=== PATIENT | male | born 1940 | race Caucasian/White ===

== ENCOUNTER 2016-04-20 13:53 | Inpatient (IN) | payer MEDICARE, BC ==
--- NOTE | 2016-04-20 14:27 | ED ---
General Adult HPI <Rudy Fiore - Last Filed: 04/20/16 16:54> - General Source: patient, family, RN notes reviewed Mode of arrival: wheelchair Limitations: no limitations <Zeeshan Hernandez - Last Filed: 04/20/16 17:05> - General Chief complaint: Fall Stated complaint: Fall Hit head and left hand Time Seen by Provider: 04/20/16 14:08 - History of Present Illness Initial comments: Patient 75-year-old male who presents emergency room today with a chief complaint of a fall that occurred yesterday. He does admit that he was walking through a parking lot when he tripped over a parking block. He does admit that he fell down onto the left knee left hand. Does admit to abrasion over the bridge of the nose. Denies any loss conscious. Denies any headache. Denies any neck pain, back pain. Patient does admit to pain swelling locally to the left hand and left knee. Does admit that he is able to bear weight and ambulate but having difficult time due to pain and swelling. Patient denies any other complaints or associated symptoms. Patient denies any recent fever, chills, shortness of breath, chest pain, back pain, abdominal pain, nausea or vomiting, numbness or tingling, dysuria or hematuria, constipation or diarrhea, headaches or visual changes, or any other complaints. (eZeshan Hernandez) - Related Data Home Medications Medication Instructions Recorded Confirmed Aspirin EC [Ecotrin Low Dose] 81 mg PO DAILY 04/20/16 04/20/16 Carvedilol [Coreg] 12.5 mg PO BID 04/20/16 04/20/16 Furosemide [Lasix] 40 mg PO DAILY 04/20/16 04/20/16 Pioglitazone [Actos] 30 mg PO DAILY 04/20/16 04/20/16 Simvastatin [Zocor] 40 mg PO HS 04/20/16 04/20/16 glipiZIDE [Glucotrol] 10 mg PO DAILY 04/20/16 04/20/16 metFORMIN HCL [Glucophage] 850 mg PO W/SUPPER 04/20/16 04/20/16 Allergies Allergy/AdvReac Type Severity Reaction Status Date / Time No Known Allergies Allergy Verified 04/20/16 14:30 Review of Systems ROS Other: All systems not noted in ROS Statement are negative. <Rudy Fiore - Last Filed: 04/20/16 16:54> ROS Other: All systems not noted in ROS Statement are negative. <Zeeshan Hernandez - Last Filed: 04/20/16 17:05> ROS Statement: Those systems with pertinent positive or pertinent negative responses have been documented in the HPI. Past Medical History Past Medical History: Coronary Artery Disease (CAD), Cancer, Diabetes Mellitus, Eye Disorder, Hyperlipidemia, Hypertension Additional Past Medical History / Comment(s): TONSIL CANCER History of Any Multi-Drug Resistant Organisms: None Reported Past Surgical History: Tonsillectomy Additional Past Surgical History / Comment(s): EYE SURGERY Past Psychological History: No Psychological Hx Reported Smoking Status: Former smoker Past Alcohol Use History: None Reported Past Drug Use History: None Reported <Zeeshan Hernandez - Last Filed: 04/20/16 17:05> General Exam <Rudy Fiore - Last Filed: 04/20/16 16:54> Limitations: no limitations <Zeeshan Hernandez - Last Filed: 04/20/16 17:05> - General Exam Comments Initial Comments: General: The patient is awake and alert, in no distress, and does not appear acutely ill. Eye: Pupils are equal, round and reactive to light, extra-ocular movements are intact. No nystagmus. There is normal conjunctiva bilaterally. No signs of icterus. Ears, nose, mouth and throat: There are moist mucous membranes and no oral lesions. Neck: The neck is supple, there is no tenderness or JVD. Cardiovascular: There is a regular rate and rhythm. No murmur, rub or gallop is appreciated. Respiratory: Lungs are clear to auscultation, respirations are non-labored, breath sounds are equal. No wheezes, stridor, rales, or rhonchi. Gastrointestinal: Soft, non-distended, non-tender abdomen without masses or organomegaly noted. There is no rebound or guarding present. No CVA tenderness. Bowel sounds are unremarkable. Musculoskeletal: Patient does have moderate swelling to the left knee and left hand. Patient shows good range of motion of the left hand. Does have tenderness over the fourth and fifth metacarpals. Sensation intact pulses equal bilaterally 2+. Cap refill less than 2 seconds. Patient does have moderate swelling to left knee. Shows decreased range of motion with flexion due to pain. Tender to palpation over the anterior and medial aspect. Sensation intact. Pulses equal bilaterally 2+. Neurological: A&O x 3. CN II-XII intact, There are no obvious motor or sensory deficits. Coordination appears grossly intact. Speech is normal. Skin: Skin is warm and dry and no rashes or lesions are noted. Psychiatric: Cooperative, appropriate mood & affect, normal judgment. (Zeeshan Hernandez) Medical Decision Making <Rudy Fiore - Last Filed: 04/20/16 16:54> <Zeeshan Hernandez - Last Filed: 04/20/16 17:05> - Medical Decision Making Medical decision-making. A CAT scan showed evidence of a tibial plateau fracture, nondisplaced. But the patient also had an injury to his hand. He will not be able to ambulate in any way as he is not able to use crutches or a walker. The case discussed with Dr. Darrick Cooper, patient will be admitted to his service with consultation from on-call orthopedics Dr. Chin. Maegan had been notified of the case and at the patient was able to get around with walker he was a follow up in the office. Inasmuch as the patient cannot get around on a walker or crutches the patient was admitted. Dr. Fiore (Rudy Fiore) Patient's CT of the left knee reviewed and does show nondisplaced nondepressed fracture of the lateral tibial plateau. Results were discussed with the patient. Patient does have bruising contusion to the left hand. Unable to put pressure use a walker with the left upper extremity. Patient will be admitted with consult or thrill. Patient placed in knee immobilizer. (Zeeshan Hernandez) Disposition <Rudy Fiore - Last Filed: 04/20/16 16:54> Time of Disposition: 16:50 <Zeeshan Hernandez - Last Filed: 04/20/16 17:05> Clinical Impression: Tibial plateau fracture, left, Fall, Hand contusion Disposition: ADMITTED IP TO THIS [facility] Condition: Stable Referrals: Dennis Cooper MD [Primary Care Provider] - 1-2 days
--- NOTE | 2016-04-20 15:07 | XR ---
EXAMINATION TYPE: XR hand complete LT DATE OF EXAM ORDERED: 04/20/2016 3:01 PM HISTORY: Pain. COMPARISON: None. FINDINGS: There is a small exostosis arising from the distal aspect of the proximal phalanx of the l madeline finger. Alternatively, this may relate to previous trauma. No acute fracture or dislocation is se en. Note is made of some vascular calcification. IMPRESSION: UNUSUAL APPEARANCE TO THE DISTAL ASPECT OF THE PROXIMAL PHALANX OF THE LONG FINGER. THIS LIKELY RELAT ES TO PREVIOUS TRAUMA.
--- NOTE | 2016-04-20 15:09 | XR ---
EXAMINATION TYPE: XR knee complete LT DATE OF EXAM ORDERED: 04/20/2016 3:01 PM HISTORY: Pain. COMPARISON: None. FINDINGS: There is peaking of the intercondylar spines. Joint spaces are reasonably well-maintained. There is some remodeling changes in the patellofemoral joint. There is a small joint effusion. Note is made of significant vascular calcification. IMPRESSION: CHANGES OF OSTEOARTHRITIS WITH A CONCOMITANT JOINT EFFUSION.
--- NOTE | 2016-04-20 15:11 | XR ---
EXAMINATION TYPE: XR chest 2V DATE OF EXAM: 04/20/2016 3:01 PM HISTORY: fall. REFERENCE: NONE. FINDINGS: A MediPort is in place via a right internal jugular approach. Its tip is in the superior ve na cava. There are senescent changes throughout the lungs. There is no pneumonia or edema. The heart is not en larged. Pleural spaces are clear. IMPRESSION: I DO NOT SEE AN ACUTE INTRATHORACIC ABNORMALITY.
--- NOTE | 2016-04-20 16:25 | CT ---
EXAMINATION TYPE: CT knee LT wo con DATE OF EXAM: 04/20/2016 3:41 PM COMPARISON: NONE HISTORY: Fall today. Left knee injury. CT DLP: 580.10 mGycm Automated exposure control for dose reduction was used. FINDINGS: There is a nondisplaced, nondepressed fracture through the lateral tibial plateau at the level of the lateral tibial tubercle. No additional fractures are seen. There is mild remodeling changes in the m edial compartment and the patellofemoral joint. There is a joint effusion without a definite lipohema rthrosis. There is extensive vascular calcification. IMPRESSION: 1. NONDISPLACED, NONDEPRESSED FRACTURE OF THE LATERAL TIBIAL PLATEAU. 2. MILD CHANGES OF OSTEOARTHRITIS. 3. SMALL JOINT EFFUSION.
[2016-04-20] MEDS ORDERED: ACETAMINOPHEN TAB 325 MG TAB PO PRN (17:05)
[2016-04-20] MEDS ORDERED: SODIUM CHLORIDE 0.9% 1,000 ML IV ONE (17:05)
[2016-04-20] MEDS ORDERED: HYDROmorphone 1 MG/ML 1 ML SYRINGE IV PRN (17:05)
[2016-04-20] MEDS ORDERED: ONDANSETRON 4 MG/2 ML VIAL IVP PRN (17:05)
[2016-04-20] MEDS ORDERED: NALOXONE 0.4 MG/ML 1 ML VIAL IV PRN (17:05)
[2016-04-20] MEDS ORDERED: HYDROcodone/APAP 5-325MG 1 EACH TAB PO PRN (17:05)
[2016-04-20 17:16] LABS: Basophils % (A) 1 %; CH 33.1; CHCM 35.4; Eosinophils % (A) 0 %; HCT 39.9 % (39.0-53.0); HDW 3.06; HGB 13.7 gm/dL (13.0-17.5); Luc # (Auto) 0.14; Luc % (Auto) 2; Lymphocytes # (A) 0.9 k/uL (1.0-4.8); Lymphocytes % (A) 10 %; MCH 32.3 pg (25.0-35.0); MCHC 34.4 g/dL (31.0-37.0); MCV 94.1 fL (80.0-100.0); Mean Platelet Volume 8.3; Monocytes # (A) 0.6 k/uL (0-1.0); Monocytes % (A) 8 %; Neutrophils # (A) 6.7 k/uL (1.3-7.7); Neutrophils % (A) 80 %; RBC 4.23 m/uL (4.30-5.90); RDW 13.2 % (11.5-15.5); WBC 8.4 k/uL (3.8-10.6); WBC (Perox) 8.31
[2016-04-20 17:24] LABS: ALT 32 U/L (21-72); AST 21 U/L (17-59); Alkaline Phosphatase 61 U/L (38-126); Anion Gap 9 mmol/L; Blood Urea Nitrogen 26 mg/dL (9-20); Calcium 9.6 mg/dL (8.4-10.2); Carbon Dioxide 26 mmol/L (22-30); Chloride 103 mmol/L (98-107); Glucose 226 mg/dL (74-99); Non-African American GFR(MDRD) >60 (>60 ml/min/1.73 sqM); Potassium 4.3 mmol/L (3.5-5.1); Sodium 138 mmol/L (137-145); Total Bilirubin 1.1 mg/dL (0.2-1.3); Total Protein 6.6 g/dL (6.3-8.2)
[2016-04-20] MEDS: INSULIN LISPRO (humaLOG) 300 UNIT/3 ML VIAL SQ SCH ×2 (18:47→20:38)
[2016-04-20 18:48] LABS: Glucose,Whole Blood 276 mg/dL (75-99)
[2016-04-20 18:54] VITALS: BMI 38.0
--- NOTE | 2016-04-20 19:21 | HP ---
DATE OF ADMISSION: 04/20/2016 Vick Casey is a 75-year-old male who presented to the ED after he fell down. He has difficulty with vision in his left eye and tripped on the curb and fell down and subsequently injured his left hand and his left knee. He was seen in the ED and admitted for further evaluation. 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 SOCIAL HISTORY: Patient is a former smoker, does not drink alcohol excessively. FAMILY HISTORY: Noncontributory. CT scan of his knee on the left shows a nondisplaced nondepressed fracture of the lateral tibial plateau with a small joint effusion and x-ray showed unusual appearance of the distal aspect of the proximal phalanx of the long finger related to previous trauma. On physical examination, his blood pressure is 135/71, respiratory rate 16, pulse rate is 79, temperature 98 degrees Fahrenheit. O2 sat on room air is 98%. HEENT reveals no new changes. No jugular venous distention. Chest is clear. Cardiovascular S1 and S2. ABDOMEN: Soft. There is a splint over his left knee. The left foot itself is warm. The left hand has some ecchymosis on the medial aspect of the dorsal part of the hand. The patient is alert and oriented x3 with no focal neurological deficits. LABS: Reveal hemoglobin of 13.7. White count of 8.4, sodium 138, potassium 4.3, chloride 103, bicarb 26, BUN 26, creatinine 1.1. A glucose of 226. IMPRESSION: 1. Left tibial fracture. 2. Left hand soft tissue injury. 3. Diabetes mellitus uncontrolled. 4. Thrombocytopenia. At this point in time, have him seen by orthopedic surgery. Keep him on GI and DVT prophylaxis. Have him seen by physical medicine and rehab. Control his blood sugars. Depending on what they think, we shall make further changes to his care.
[2016-04-20] MEDS: FAMOTIDINE 20 MG TAB PO SCH (19:45)
[2016-04-20] MEDS: ATORVASTATIN 20 MG TAB PO SCH (19:45)
[2016-04-20] MEDS: CARVEDILOL 12.5 MG TAB PO SCH (19:45)
[2016-04-20] MEDS: HEPARIN SODIUM,PORCINE 5,000 UNIT/ML 1 ML VIAL SQ SCH (19:45)
[2016-04-20 20:20] LABS: Glucose,Whole Blood 245 mg/dL (75-99)
[2016-04-20 20:36] LABS: Hemoglobin A1C 8.4 % (4.2-6.1)
[2016-04-21 06:55] LABS: Glucose,Whole Blood 217 mg/dL (75-99)
--- NOTE | 2016-04-21 07:24 | P.CONS ---
History of Present Illness - Chief Complaint Walking difficulty - History of Present Illness Patient 75-year-old right-handed white male admitted to [facility] yesterday with history of trip and fall hitting had left hand and left knee. Chest x-ray negative. Left knee x-ray last arthritis confusion. Left knee CT with tibial plateau fracture nondisplaced, and joint effusion. Left hand x-ray with change of proximal phalanx of the long finger, possibly of third digit. PT prescribed. Previous functional history, as elicited from patient. 75 year old right- handed white male who is lives in one floor home with and son. History smoking doesn't smoke or drink currently. Retired. does the cooking laundry and driving. Patient independent with sponge bath and gait without device. Regular doctors Dr. JENNY Cooper. Review of Systems Review of systems: ENT: Bruising and discomfort left orbit and nasal. Eyes: Denies discharge or photophobia. Cardiac: Denies chest pain or palpitation. Pulmonary: Denies cough or shortness of breath. Gastrointestinal: Denies nausea, emesis, constipation, diarrhea. Genitourinary: Denies discharge or frequency. Musculoskeletal: Discomfort in left hand and left knee, which is in immobilizer. Neurologic: Denies motor or sensory change. Endocrine: Denies shakes or sweats. Oncology: Denies cancers. Dermatologic: Denies rash, itching, pruritus. ALLERGY/immunology: Denies sneezes, rashes. Past Medical History Past Medical History: Coronary Artery Disease (CAD), Cancer, Diabetes Mellitus, Eye Disorder, Hyperlipidemia, Hypertension Additional Past Medical History / Comment(s): TONSIL CANCER, SKIN CA, TOE NAIL INFECTION. lYMPHOMA History of Any Multi-Drug Resistant Organisms: None Reported Past Surgical History: Tonsillectomy Additional Past Surgical History / Comment(s): EYE SURGERY Past Anesthesia/Blood Transfusion Reactions: No Reported Reaction Past Psychological History: No Psychological Hx Reported Smoking Status: Former smoker Past Alcohol Use History: None Reported Past Drug Use History: None Reported - Past Family History Mother Family Medical History: Diabetes Mellitus Father Family Medical History: Cancer Medications and Allergies Home Medications Medication Instructions Recorded Confirmed Type Aspirin EC [Ecotrin Low Dose] 81 mg PO DAILY 04/20/16 04/20/16 History Carvedilol [Coreg] 12.5 mg PO BID 04/20/16 04/20/16 History Furosemide [Lasix] 40 mg PO DAILY 04/20/16 04/20/16 History Pioglitazone [Actos] 30 mg PO DAILY 04/20/16 04/20/16 History Simvastatin [Zocor] 40 mg PO HS 04/20/16 04/20/16 History glipiZIDE [Glucotrol] 10 mg PO DAILY 04/20/16 04/20/16 History metFORMIN HCL [Glucophage] 850 mg PO W/SUPPER 04/20/16 04/20/16 History Allergies Allergy/AdvReac Type Severity Reaction Status Date / Time No Known Allergies Allergy Verified 04/21/16 02:07 Physical Exam Vitals: Vital Signs Temp Pulse Resp BP Pulse Ox 04/21/16 07:16 97.8 F 73 16 134/70 94 L 04/21/16 01:58 98.6 F 77 16 124/59 93 L 04/20/16 18:10 98.0 F 79 16 135/71 98 Intake and Output 04/20/16 04/21/16 04/21/16 22:59 06:59 14:59 Intake Total 60 Output Total 600 Balance 60 -600 Intake: IV 60 Sodium Chloride 0.9% 1, 60 000 ml @ 20 mls/hr IV . Q24H ONE Rx#:[id number] Output: Urine 600 Other: Voiding Method Urinal Urinal # Voids 1 Weight 120.202 kg Skin: Good color, texture, turgor. General: [place] build and comfortable appearance. Head: Normocephalic, atraumatic. Eyes: Symmetric. Pupils equal round. Ears: Symmetric. Hearing within normal limits. Mouth: Clear. Neck: Supple. Carotid without bruit. Cardiac: Regular rate and rhythm. Lungs: Clear anteriorly and posteriorly. At least a slightly barrel chested. Abdomen: Soft active nontender. Extremities: Normal tone. Neurological: Mental status: Alert, cooperative, pleasant. Cranial nerves: Symmetric facial tone and trapezius. Motor: Normal strength and isolation all 4 limbs with some giveaway weakness left hand and left leg. Sensation: Intact throughout. DTRs: Symmetric and equal throughout. Mobility: Did not attempt to sit or stand on my own. Results CBC & Chem 7: 04/20/16 17:02 04/20/16 17:02 Labs: Abnormal Lab Results - Last 24 Hours (Table) 04/20/16 04/20/16 04/21/16 Range/Units 18:44 20:19 06:54 POC Glucose (mg/dL) 276 H 245 H 217 H (75-99) mg/dL Assessment and Plan (1) Tibial plateau fracture, left Status: Acute Plan: Impression: 1. Walking ability. 2. Left knee contusion and nondisplaced tibial plateau fracture. 3. Trauma left hand proximal phalanx of long finger 3. Facial contusion. 4. Eye disorder with visual problem left eye. 5. Hypertension. 6. Diabetes. 7. Hyponatremia. 8. History of cancer. Comments and plan: At this time physical therapy is prescribed and I have added occupational therapy. Safety concerns anticipated. We'll follow for possible need and benefit of inpatient rehab, with yourself.
[2016-04-21] MEDS: HEPARIN SODIUM,PORCINE 5,000 UNIT/ML 1 ML VIAL SQ SCH ×2 (07:37→20:12)
[2016-04-21] MEDS: CARVEDILOL 12.5 MG TAB PO SCH ×2 (07:37→17:45)
[2016-04-21] MEDS: ASPIRIN 81 MG CHEW PO SCH (07:37)
[2016-04-21] MEDS: glipiZIDE 10 MG TAB PO SCH (07:37)
[2016-04-21] MEDS: FUROSEMIDE 40 MG TAB PO SCH (07:38)
[2016-04-21] MEDS: FAMOTIDINE 20 MG TAB PO SCH ×2 (07:38→20:12)
[2016-04-21] MEDS: INSULIN LISPRO (humaLOG) 300 UNIT/3 ML VIAL SQ SCH ×4 (07:38→20:12)
[2016-04-21] MEDS: PIOGLITAZONE 30 MG TAB PO SCH (07:38)
--- NOTE | 2016-04-21 09:11 | P.CNOR ---
History of Present Illness - [facility] Consult date: 04/21/16 Consult reason: fracture (Left tibial plateau, left 5th metacarpal fx) History of present illness: This is a 75-year-old male who fell in his home yesterday sustaining injury to his left knee and left hand. On exam and x-ray in the emergency department he is found to have a tibial plateau fracture of the left knee. It is also noted that he has a fifth metacarpal base fracture of the left hand. He is admitted to internal medicine and we're consulted for thecal evaluation. Past Medical History Past Medical History: Coronary Artery Disease (CAD), Cancer, Diabetes Mellitus, Eye Disorder, Hyperlipidemia, Hypertension Additional Past Medical History / Comment(s): TONSIL CANCER, SKIN CA, TOE NAIL INFECTION. lYMPHOMA History of Any Multi-Drug Resistant Organisms: None Reported Past Surgical History: Tonsillectomy Additional Past Surgical History / Comment(s): EYE SURGERY Past Anesthesia/Blood Transfusion Reactions: No Reported Reaction Past Psychological History: No Psychological Hx Reported Smoking Status: Former smoker Past Alcohol Use History: None Reported Past Drug Use History: None Reported - Past Family History Mother Family Medical History: Diabetes Mellitus Father Family Medical History: Cancer Medications and Allergies Home Medications Medication Instructions Recorded Confirmed Type Aspirin EC [Ecotrin Low Dose] 81 mg PO DAILY 04/20/16 04/20/16 History Carvedilol [Coreg] 12.5 mg PO BID 04/20/16 04/20/16 History Furosemide [Lasix] 40 mg PO DAILY 04/20/16 04/20/16 History Pioglitazone [Actos] 30 mg PO DAILY 04/20/16 04/20/16 History Simvastatin [Zocor] 40 mg PO HS 04/20/16 04/20/16 History glipiZIDE [Glucotrol] 10 mg PO DAILY 04/20/16 04/20/16 History metFORMIN HCL [Glucophage] 850 mg PO W/SUPPER 04/20/16 04/20/16 History Allergies Allergy/AdvReac Type Severity Reaction Status Date / Time No Known Allergies Allergy Verified 04/21/16 02:07 Physical Examination This is a pleasant 75-year-old male in no acute distress. He is alert and oriented 3. Exam of the head neck reveal multiple abrasions about the nose and face. There is no asymmetry to the face noted. There is no pain with motion to the cervical spine. Exam the upper extremities reveals significant swelling and ecchymosis to the left hand. He has limited motion of the finger secondary to swelling. Neurovascular status left upper extremity is intact. There is no pain with motion the shoulders and elbows. Exam of the lower extremities reveals a knee immobilizer in place on the left. There is no hip pain noted. He has full foot ankle motion bilaterally. Neurovascular status lower extremities is intact. Results X-ray of the left knee reveals a nondisplaced tibial plateau fracture. X-ray of the left hand reveals a minimally displaced fracture of the base of the fifth metacarpal. There is evidence of old fracture to the middle finger. - Labs Labs: Abnormal Lab Results - Last 24 Hours (Table) 04/20/16 04/20/16 04/21/16 Range/Units 18:44 20:19 06:54 POC Glucose (mg/dL) 276 H 245 H 217 H (75-99) mg/dL Result Diagrams: 04/20/16 17:02 04/20/16 17:02 Assessment and Plan (1) Fracture of fifth metacarpal bone of left hand Status: Acute (2) Fall Status: Acute (3) Tibial plateau fracture, left Status: Acute Plan: The clinical and x-ray findings are discussed with the patient. It is recommended that he received a brace for the left hand and use a platform walker. He is toe-touch weightbearing to the left lower extremity with the platform walker. He is to maintain knee immobilizer. He is advised we will be following his fracture weekly. If the fracture displaces at all he may needs surgical fixation. He may possibly be a candidate for inpatient rehab.
[2016-04-21 11:41] LABS: Glucose,Whole Blood 265 mg/dL (75-99)
[2016-04-21 17:21] LABS: Basophils # (A) 0.1 k/uL (0-0.2); Basophils % (A) 1 %; CH 32.6; Eosinophils # (A) 0.1 k/uL (0-0.7); Eosinophils % (A) 2 %; HDW 3.05; Luc # (Auto) 0.09; Luc % (Auto) 1; Lymphocytes # (A) 0.9 k/uL (1.0-4.8); Lymphocytes % (A) 13 %; MCH 33.1 pg (25.0-35.0); MCHC 35.2 g/dL (31.0-37.0); MCV 93.9 fL (80.0-100.0); Mean Platelet Volume 8.1; Monocytes # (A) 0.5 k/uL (0-1.0); Monocytes % (A) 8 %; Neutrophils # (A) 5.2 k/uL (1.3-7.7); Neutrophils % (A) 75 %; RBC 3.94 m/uL (4.30-5.90); RDW 13.4 % (11.5-15.5); WBC 6.9 k/uL (3.8-10.6); WBC (Perox) 7.08
[2016-04-21 17:23] LABS: Glucose,Whole Blood 183 mg/dL (75-99)
[2016-04-21] MEDS: metFORMIN 850 MG TAB PO SCH (17:45)
[2016-04-21 20:02] LABS: Glucose,Whole Blood 167 mg/dL (75-99)
[2016-04-21] MEDS: ATORVASTATIN 20 MG TAB PO SCH (20:12)
[2016-04-21] MEDS: INSULIN GLARGINE 100 UNIT/ML 10 ML VIAL SQ SCH (20:13)
--- NOTE | 2016-04-21 21:18 | PN ---
DATE OF SERVICE: 04/21/2016 Patient is a 75-year-old male who is seen sitting up in bed. He is awake, alert, afebrile, hemodynamically stable. Does have some swelling and bruising to that left hand as well as an immobilizer on the left lower extremity. Patient's is at the bedside. Patient verbalizes plan is for probable rehab at [facility], as right now patient has limited use his left hand and his left leg from fractures. On physical exam, vital are temperature 98.0, heart rate 75, respiratory rate 16. Blood pressure is 143/70. Oxygen saturation is 96% on room air. HEENT: Head is normocephalic, atraumatic. NECK: Supple. Trachea is midline. LUNGS: Essentially clear. Slightly decreased at the bases. HEART: S1 and S2 are heard. Not tachycardic. ABDOMEN: Soft. Bowel sounds are positive. EXTREMITIES: With trace edema to the left lower extremity as well as that left hand. Left hand has 2+ edema with some bruising noted. No edema to the right lower extremity. NEUROLOGIC: Patient is awake, alert, oriented. No new labs to review. No new imaging to review. IMPRESSION: 1. Left tibial fracture. 2. Left hand fracture and soft tissue injury. 3. Diabetes mellitus, uncontrolled. 4. Thrombocytopenia. PLAN: Continue current medications, which have been reviewed, with GI and DVT prophylaxis. Will add Lantus 24 units daily at bedtime. Will add incentive spirometry 10 times q.1 hour while awake. Patient should continue with PT and OT. Will follow closely, making further changes as necessary.
[2016-04-22 06:58] LABS: Anion Gap 9 mmol/L; Blood Urea Nitrogen 24 mg/dL (9-20); Calcium 8.7 mg/dL (8.4-10.2); Carbon Dioxide 22 mmol/L (22-30); Chloride 107 mmol/L (98-107); Glucose 172 mg/dL (74-99); Magnesium 1.8 mg/dL (1.6-2.3); Non-African American GFR(MDRD) >60 (>60 ml/min/1.73 sqM); Phosphorous 3.2 mg/dL (2.5-4.5); Sodium 138 mmol/L (137-145)
[2016-04-22 07:11] LABS: Glucose,Whole Blood 158 mg/dL (75-99)
[2016-04-22] MEDS: glipiZIDE 10 MG TAB PO SCH (07:40)
[2016-04-22] MEDS: CARVEDILOL 12.5 MG TAB PO SCH ×2 (07:40→17:34)
[2016-04-22] MEDS: PIOGLITAZONE 30 MG TAB PO SCH (07:41)
[2016-04-22] MEDS: FAMOTIDINE 20 MG TAB PO SCH ×2 (07:41→19:48)
[2016-04-22] MEDS: INSULIN LISPRO (humaLOG) 300 UNIT/3 ML VIAL SQ SCH ×4 (07:41→19:49)
[2016-04-22] MEDS: FUROSEMIDE 40 MG TAB PO SCH (07:41)
[2016-04-22] MEDS: ASPIRIN 81 MG CHEW PO SCH (07:41)
[2016-04-22] MEDS: HEPARIN SODIUM,PORCINE 5,000 UNIT/ML 1 ML VIAL SQ SCH ×2 (07:41→19:48)
--- NOTE | 2016-04-22 10:39 | P.PN ---
Subjective Principal diagnosis: Left tibial plateau fracture and left 5th base metacarpal fracture The patient is a 75 year old male that presented to the hospital two days ago after sustaining a fall at home. He was found to have a left tibial plateau fracture and a 5th metacarpal base fracture. A knee immoblizer and wrist brace was ordered yesterday. We are awaiting the arrival of the wrist brace which is due to be delivered this afternoon. He is currently toe-touch weightbearing with a platform walker. He has been ambulating to the bathroom and is currently sitting in the recliner chair upon my evaluation. He states his pain is controlled at this time. We are also awaiting rehab placement at this time. He denies nausea, vomiting, abdominal pain, shortness of breath, and chest pain. Objective - Vital Signs Vital signs: Vital Signs Temp 98.7 F 04/22/16 07:30 Pulse 73 04/22/16 07:30 Resp 16 04/22/16 07:30 BP 131/68 04/22/16 07:30 Pulse Ox 94 L 04/22/16 07:30 Intake & Output 04/21/16 04/22/16 04/22/16 18:59 06:59 18:59 Intake Total 540 360 Balance 540 360 Intake: Oral 540 360 Other: Voiding Method Urinal Urinal Urinal # Voids 1 - Exam The patient is in no acute distress. He is alert and oriented x3. Exam of the left lower extremity reveals a knee immoblizer in place. He has good foot and ankle motion with difficulty or pain. There is moderate swelling to the knee joint. Calf is soft and non-tender. Exam of the left hand reveals swelling and bruising to the volar and dorsal aspect. He has limited range of motion to the left little finger and baseline movement of his other fingers. Pain on palpation to the 5th metacarpal base. Neurological and circulatory status is intact. - Labs CBC & Chem 7: 04/21/16 15:56 04/22/16 06:30 Labs: Abnormal Lab Results - Last 24 Hours (Table) 04/21/16 04/21/16 04/21/16 Range/Units 11:38 15:56 17:20 RBC 3.94 L (4.30-5.90) m/uL Hct 37.0 L (39.0-53.0) % Plt Count 147 L (150-450) k/uL Lymphocytes # 0.9 L (1.0-4.8) k/uL BUN (9-20) mg/dL Glucose (74-99) mg/dL POC Glucose (mg/dL) 265 H 183 H (75-99) mg/dL 04/21/16 04/22/16 04/22/16 Range/Units 20:01 06:30 07:07 RBC (4.30-5.90) m/uL Hct (39.0-53.0) % Plt Count (150-450) k/uL Lymphocytes # (1.0-4.8) k/uL BUN 24 H (9-20) mg/dL Glucose 172 H (74-99) mg/dL POC Glucose (mg/dL) 167 H 158 H (75-99) mg/dL Assessment and Plan (1) Fall Status: Acute (2) Tibial plateau fracture, left Status: Acute (3) Fracture of fifth metacarpal bone of left hand Status: Acute Plan: The clinical findings were discussed with the patient. He'll continue toe- touch weightbearing to left lower extremity and maintain knee immobilizer. We will await wrist brace delivery. He will continue with platform walker. The patient is orthopedically stable for discharge once accepted to a skilled rehabilitation. The patient will follow-up with Dr. Chin on an outpatient basis.
[2016-04-22 11:29] LABS: Glucose,Whole Blood 254 mg/dL (75-99)
[2016-04-22] MEDS: BACITRACIN 500 UNIT/GM OINT 28.4 GM TUBE TOPICAL SCH ×2 (11:44→19:48)
--- NOTE | 2016-04-22 14:00 | CDI ---
In responding to this query, please exercise your independent professional judgment. The [facility] Coding Staff and Clinical Documentation Specialists appreciate your assistance in clarifying documentation, maintaining compliance with coding guidelines, accurately documenting patients condition and capturing severity of illness. The fact that a question is asked does not imply that any particular answer is desired or expected. Communication forms are a method of clarifying documentation and are not made part of the Legal Health Record. Thank you in advance for your clarification. Last Revision, December 2014 Christiano Caban [address] [place] [address] Documentation Clarification Form Date: 04/22/2016 1:44:00 PM From: Salome Papa Admit Date: 04/20/2016 5:34:00 PM Patient Name: Vick Casey Visit Number: [id number] Discharge Date: Dr. Dennis Cooper/Betty Bell NP-Dev The patient has diabetes, as indicated in your H&P and progress note on 04/21/16. Clinical Indicators: past medical history and admission blood glucose 226, Hemoglobin A1c 8.4 Treatment: Glucotrol PO per orders Glucophage PO Per orders Lantus SC per orders Humalog SQ per orders Blood sugar monitoring In order to capture the severity of Illness and necessary documentation specificity, please clarify: DM Type 1 DM Type 2 DM due to underlying condition, specify (e.g. Cushings syndrome) Drug/chemical induced DM (document the drug/chemical) Gestational DM Unable to Determine Other Condition Please document any body system complications or specific manifestations related to the diabetes: Diabetic Nephropathy Diabetic Autonomic Neuropathy Diabetic Peripheral Vascular Disease Proliferative diabetic retinopathy with macular edema Diabetic foot ulcers, specify location Ketoacidosis Hypoglycemia with or without coma Hyperglycemia Hyperosmolarity Coma/nonketotic hyperglycemic-hyperosmolar coma Other condition Please document in your progress notes and discharge summary in order to capture severity of illness and risk of mortality. Include clinical findings that support your diagnosis. FYI: Press F11 to launch patient chart. Place X here if this finding has no clinical significance, is not applicable or if you are not able to provide any additional documentation. ELIOD
--- NOTE | 2016-04-22 14:25 | CDI ---
In responding to this query, please exercise your independent professional judgment. The [facility] Coding Staff and Clinical Documentation Specialists appreciate your assistance in clarifying documentation, maintaining compliance with coding guidelines, accurately documenting patients condition and capturing severity of illness. The fact that a question is asked does not imply that any particular answer is desired or expected. Communication forms are a method of clarifying documentation and are not made part of the Legal Health Record. Thank you in advance for your clarification. Last Revision, April 2015 Christiano Caban [address] [facility] [place] [address] Documentation Clarification Form Date: 04/22/2016 2:03:00 PM From: Salome Elam Admit Date: 04/20/2016 5:34:00 PM Patient Name: Vick Casey Visit Number: [id number] Discharge Date: Dr. Dennis Cooper/Betty Bell MENTAL HEALTH ORDERLY-C Thrombocytopenia is documented in the H&P and progress notes on 04/21/16 . Patient history/risk factors: Diabetes mellitus, uncontrolled, coronary artery disease, Cancer; history of prior chemotherapy, Hypertension, Former smoker Clinical Indicators: Patient is post fall hitting her left hand and left knee, with left knee Ct with tibial plateau fracture nondisplaced and joint effusion. The left hand x-ray with change of proximal phalanx of long finger, facial contusion. Bruising and discomfort left orbit and nasal. Platelet count: 137, 147 Treatment: Monitor Labs In your professional opinion, can the type and etiology of thrombocytopenia be further specified as one of the following, if known? Idiopathic Thrombocytopenia Primary Thrombocytopenia Secondary Thrombocytopenia Thrombocytopenia due to drugs Thrombocytopenia due to chemotherapy Other, please specify Unable to determine Please document in your progress notes and discharge summary in order to capture severity of illness and risk of mortality. Include clinical findings that support your diagnosis. FYI: Press F11 to launch patient chart Place X here if this finding has no clinical significance, is not applicable or if you are not able to provide any additional documentation. MTDD
[2016-04-22 16:44] LABS: Glucose,Whole Blood 198 mg/dL (75-99)
[2016-04-22] MEDS: metFORMIN 850 MG TAB PO SCH (17:34)
[2016-04-22] MEDS: INSULIN GLARGINE 100 UNIT/ML 10 ML VIAL SQ SCH (19:48)
[2016-04-22] MEDS: ATORVASTATIN 20 MG TAB PO SCH (19:48)
[2016-04-22 20:07] LABS: Glucose,Whole Blood 182 mg/dL (75-99)
--- NOTE | 2016-04-22 22:47 | PN ---
DATE OF SERVICE: 04/22/2016. He was seen on 04/22/2016. Physical therapy is starting on him. He has no shortness of breath or chest pain. On physical examination, his blood pressure is 129/74, respiratory rate 16, pulse of 76. He is afebrile. HEENT is unremarkable. Chest is clear. Cardiovascular system reveals an S1, S2. ABDOMEN: Soft. There is no edema. There is a splint over his left lower extremity. Sodium is 138, potassium 4, chloride 107, bicarb 22, BUN 24, creatinine of 1.1. IMPRESSION: 1. Left tibial plate fracture. 2. Diabetes mellitus. 3. Thrombocytopenia. At this point in time, continue GI and DVT prophylaxis. Continue insulin. Increase his activity level. Discharge planning is for rehab unit either inpatient rehab versus penitentiary. Prognosis fair.
[2016-04-23 02:07] VITALS: RESP 16
[2016-04-23 07:41] VITALS: BP 136/74; PULSE 69; TEMP 98.7
[2016-04-23 07:52] LABS: Glucose,Whole Blood 151 mg/dL (75-99)
[2016-04-23] MEDS: INSULIN LISPRO (humaLOG) 300 UNIT/3 ML VIAL SQ SCH ×2 (08:10→12:46)
[2016-04-23] MEDS: CARVEDILOL 12.5 MG TAB PO SCH (08:10)
[2016-04-23] MEDS: glipiZIDE 10 MG TAB PO SCH (08:10)
[2016-04-23] MEDS: ASPIRIN 81 MG CHEW PO SCH (08:11)
[2016-04-23] MEDS: PIOGLITAZONE 30 MG TAB PO SCH (08:12)
[2016-04-23] MEDS: FUROSEMIDE 40 MG TAB PO SCH (08:12)
[2016-04-23] MEDS: BACITRACIN 500 UNIT/GM OINT 28.4 GM TUBE TOPICAL SCH (08:12)
[2016-04-23] MEDS: FAMOTIDINE 20 MG TAB PO SCH (08:12)
[2016-04-23] MEDS: HEPARIN SODIUM,PORCINE 5,000 UNIT/ML 1 ML VIAL SQ SCH (08:12)
--- NOTE | 2016-04-23 09:17 | P.DS ---
Providers Date of admission: 04/20/16 17:34 Expected date of discharge: 04/23/16 Attending physician: Dennis Cooper Consults: 04/20/16 18:55 Consult Physician Routine Consulting Provider: Jacob Koch Consult Reason/Comments: fracture and gait disturbance Do you want consulting provider notified?: Yes Primary care physician: Dennis Cooper - Discharge Diagnosis(es) (1) Fracture of fifth metacarpal bone of left hand Current Visit: Yes Status: Acute (2) Fall Current Visit: Yes Status: Acute (3) Tibial plateau fracture, left Current Visit: Yes Status: Acute Hospital Course: This is a 75-year-old male who is admitted to [facility] on 06/2016 after falling and sustaining injury to his left knee and left hand. He also sustained some abrasions to his face and elbow. On exam and x-ray he was found to have a minimally displaced tibial plateau fracture of the left knee. He also has a minimally displaced fracture of the base of the fifth metacarpal left hand. He is placed in a knee immobilizer left knee and a boxers splint to the left hand. The patient worked with physical therapy with a platform walker. He is having difficulty maintaining nonweightbearing status to the left lower extremity. He has been basically bed to chair transfers. It is recommended that he go to inpatient rehab. He is to follow-up on a weekly basis for serial x-rays to the left knee. He may be toe-touch weightbearing to left lower extremity with platform walker. Patient Condition at Discharge: Stable Plan - Discharge Summary New Discharge Prescriptions: Bacitracin Oint 1 applic TOPICAL BID #1 tube HYDROcodone/APAP 5-325MG [Daisy 5-325] 1 - 2 each PO Q4-6H PRN #90 tab PRN Reason: Pain Sennosides-Docusate Sodium [Senokot-S] 1 tab PO BID #60 tablet Discharge Medication List Aspirin EC [Ecotrin Low Dose] 81 mg PO DAILY 04/20/16 [History] Carvedilol [Coreg] 12.5 mg PO BID 04/20/16 [History] Furosemide [Lasix] 40 mg PO DAILY 04/20/16 [History] Pioglitazone [Actos] 30 mg PO DAILY 04/20/16 [History] Simvastatin [Zocor] 40 mg PO HS 04/20/16 [History] glipiZIDE [Glucotrol] 10 mg PO DAILY 04/20/16 [History] metFORMIN HCL [Glucophage] 850 mg PO W/SUPPER 04/20/16 [History] Bacitracin Oint 1 applic TOPICAL BID #1 tube 04/23/16 [Rx] HYDROcodone/APAP 5-325MG [Daisy 5-325] 1 - 2 each PO Q4-6H PRN #90 tab 04/23/16 [Rx] Sennosides-Docusate Sodium [Senokot-S] 1 tab PO BID #60 tablet 04/23/16 [Rx] Follow up Appointment(s)/Referral(s): Julius Chin MD [STAFF PHYSICIAN] - 1 Week Dennis Cooper MD [Primary Care Provider] - 1-2 days Activity/Diet/Wound Care/Special Instructions: Toe-touch weightbearing left lower extremity Maintain knee immoblizer--May remove for bathing Left wrist brace--May remove for bathing Platform walker Call [facility] with any questions or concerns, Discharge Disposition: TRANSFER TO SNF/ECF
--- NOTE | 2016-04-23 11:27 | P.PN ---
Subjective Principal diagnosis: Fall with left tibial fracture Patient seen and examined. Patient states he is feeling fine. His pain is well -controlled. He denies chest pain, shortness of breath, fevers, chills. He is planning to be discharged to rehab today. He has no needs or concerns at this time. Objective - Vital Signs Vital signs: Vital Signs Temp 98.7 F 04/23/16 07:00 Pulse 69 04/23/16 08:00 Resp 16 04/23/16 08:00 BP 136/74 04/23/16 07:00 Pulse Ox 94 L 04/23/16 07:00 Intake & Output 04/22/16 04/23/16 04/23/16 18:59 06:59 18:59 Intake Total 1320 400 250 Output Total 600 Balance 1320 400 -350 Weight 120.202 kg Intake: Oral 1320 400 250 Output: Urine 600 Other: Voiding Method Urinal Urinal # Voids 1 1 1 # Bowel Movements 1 1 - Exam Gen.: Patient is alert and oriented 3, no acute distress Cardiovascular: Regular rate and rhythm, S1/S2 Lungs: Clear to auscultation bilaterally no wheezes rales or rhonchi Abdomen: Soft nontender nondistended positive bowel sounds Extremities: Left lower extremity and left upper extremity are in orthopedic braces - Labs CBC & Chem 7: 04/21/16 15:56 04/22/16 06:30 Labs: Abnormal Lab Results - Last 24 Hours (Table) 04/22/16 04/22/16 04/22/16 Range/Units 11:27 16:41 19:47 POC Glucose (mg/dL) 254 H 198 H 182 H (75-99) mg/dL 04/23/16 Range/Units 07:10 POC Glucose (mg/dL) 151 H (75-99) mg/dL Assessment and Plan Plan: Status post fall with left tibial plate fracture Left upper extremity soft tissue injury Diabetes mellitus type 2 Thrombocytopenia Obesity Plan for discharge to [facility] today. Continue home medications Incentive spirometry and pulmonary hygiene Blood sugar control Pain control Follow-up with orthopedic surgery
[2016-04-23 12:10] LABS: Glucose,Whole Blood 197 mg/dL (75-99)
== END 2016-04-23 15:02 | DRG 563 ==
LOC: EC 13:53 → 3SUR 17:34
PROVIDERS: ADMIT Internal Medicine Pulmonary Disease; ATTEND Internal Medicine Pulmonary Disease
PROC: 2W3RX3Z Immobilization of Left Lower Leg using Brace (ICD-10-PCS; principal; 2016-04-22)
PROC: 2W3FX1Z Immobilization of Left Hand using Splint (ICD-10-PCS; 2016-04-22)
DX: S82.142A Displaced bicondylar fracture of left tibia, initial encounter for closed fracture (principal); E11.65 Type 2 diabetes mellitus with hyperglycemia; D69.6 Thrombocytopenia, unspecified; E87.1 Hypo-osmolality and hyponatremia; I10 Essential (primary) hypertension; M17.12 Unilateral primary osteoarthritis, left knee; M25.462 Effusion, left knee; S00.83XA Contusion of other part of head, initial encounter; S62.307A Unspecified fracture of fifth metacarpal bone, left hand, initial encounter for closed fracture; I25.10 Atherosclerotic heart disease of native coronary artery without angina pectoris; E78.5 Hyperlipidemia, unspecified; H57.9 Unspecified disorder of eye and adnexa; R26.2 Difficulty in walking, not elsewhere classified; H54.62 Unqualified visual loss, left eye, normal vision right eye; R53.1 Weakness; Z79.899 Other long term (current) drug therapy; Z83.3 Family history of diabetes mellitus; Z79.84 Long term (current) use of oral hypoglycemic drugs; Z92.21 Personal history of antineoplastic chemotherapy; Z87.891 Personal history of nicotine dependence; Z79.82 Long term (current) use of aspirin; Z86.19 Personal history of other infectious and parasitic diseases; Z85.828 Personal history of other malignant neoplasm of skin; Z80.9 Family history of malignant neoplasm, unspecified; Z85.72 Personal history of non-Hodgkin lymphomas; Z87.81 Personal history of (healed) traumatic fracture; W10.1XXA Fall (on)(from) sidewalk curb, initial encounter; Y93.01 Activity, walking, marching and hiking; Y92.480 Sidewalk as the place of occurrence of the external cause
CPT/HCPCS: 36415; 71020; 80048; 80053; 83036; 83735; 84100; 85025; 99285

== ENCOUNTER → 2016-05-13 | Outpatient (CLI) | payer MEDICARE, BC ==
[2016-05-13 13:16] LABS: Anion Gap 12 mmol/L; Blood Urea Nitrogen 24 mg/dL (9-20); Calcium 9.5 mg/dL (8.4-10.2); Carbon Dioxide 24 mmol/L (22-30); Chloride 102 mmol/L (98-107); Glucose 191 mg/dL (74-99); Non-African American GFR(MDRD) >60 (>60 ml/min/1.73 sqM); Sodium 138 mmol/L (137-145)
[2016-05-13 13:21] LABS: Hemoglobin A1C 7.8 % (4.2-6.1); Potassium 5.4 mmol/L (3.5-5.1)
== END | disposition home or self-care (01) ==
LOC: LABWHC1 12:04
PROVIDERS: ATTEND Nurse Practitioner
DX: E11.9 Type 2 diabetes mellitus without complications (principal); I10 Essential (primary) hypertension
CPT/HCPCS: 36415; 80048; 83036

== ENCOUNTER → 2016-07-28 | Outpatient (CLI) | payer MEDICARE, BC ==
[2016-07-28 10:28] LABS: Blood Urea Nitrogen 19 mg/dL (9-20); Non-African American GFR(MDRD) >60 (>60 ml/min/1.73 sqM)
--- NOTE | 2016-07-28 12:44 | CT ---
EXAMINATION TYPE: CT soft tissue neck w con DATE OF EXAM: 07/28/2016 COMPARISON: NONE HISTORY: Lymphoma CT DLP: 2545 mGycm CONTRAST: Patient injected with 100 mL of Omnipaque 300. TECHNIQUE: Axial images at 3 mm thick sections. Reconstructed images in the coronal plane and sagitt al plane are reviewed. FINDINGS: Limited CT sections are obtained the lung apices. The lung apices appear clear. CT neck: The torus tubarius and fossa of Rosenmuller are normal. Outdoor Studies Director spaces are normal. Para nasal sinuses and mastoid air cells are clear. Parotid glands appear normal and symmetrical. Submandibular glands, are normal. Parapharyngeal spac es are normal. No suspicious adenopathy is evident. The hypopharynx appears within normal limits. Vocal cord level appear symmetrical. Thyroid as visualized is normal. Osseous structures are normal. IMPRESSIONS: 1. No suspicious adenopathy to suggest recurrent lymphoma.
--- NOTE | 2016-07-28 12:51 | CT ---
EXAMINATION TYPE: CT ChestAbdPelvis w con DATE OF EXAM: 07/28/2016 INDICATION: History of lymphoma COMPARISON: 01/25/2016 CT DLP: 2545 mGycm CONTRAST: 100 mL Omnipaque 300 TECHNIQUE: Axial images at 5 mm thick sections. Reconstructed images in the coronal plane. Delayed images through the kidneys. FINDINGS: CT CHEST: Portion of the thyroid visualized is normal. No suspicious lung nodules or focal infiltrates are present. No enlarged mediastinal or hilar adenopathy is evident. No enlarged axillary adenopathy is evident Th ere may be some minimal thymus present anterior to the main pulmonary artery level. Coronary artery c alcification is present. The ascending aorta diameter at the level of the main pulmonary artery is 3.4 cm. The main pulmonary artery diameter at the bifurcation is 2.[address] ABDOMEN: Liver: Normal Spleen: Normal, and craniocaudal dimension is 12.7 cm which is diminished from previous. Pancreas: Normal Adrenal glands: The adrenal glands are normal. Gallbladder: Normal Kidneys: No masses are evident. No hydronephrosis is present. No cysts are present. Delayed images were obtained through the kidneys, which remain unremarkable. There is a right retrocaval renal parul ry Aorta: Vascular calcification is within the aorta. Inferior vena cava: Normal. CT PELVIS: Loops of bowel within the abdomen and pelvis are normal. There are loops of bowel which are incom pletely distended or lack oral contrast limiting their evaluation. Appendix: Not identified. Urinary bladder: Normal. Genitourinary structures: Prostate is unremarkable Osseous structures: No suspicious lytic or sclerotic lesions. IMPRESSIONS: 1. No suspicious lymphadenopathy to suggest recurrent lymphoma.
== END | disposition home or self-care (01) ==
LOC: RADPROMAIN 09:41
PROVIDERS: ATTEND Internal Medicine Hematology & Oncology
DX: C83.31 Diffuse large B-cell lymphoma, lymph nodes of head, face, and neck (principal)
CPT/HCPCS: 82565; 84520; 70491; 71260; 74177; 36415; Q9967

== ENCOUNTER → 2017-02-20 | Outpatient (CLI) | payer MEDICARE, BC ==
[2017-02-20 10:53] LABS: Blood Urea Nitrogen 24 mg/dL (9-20)
--- NOTE | 2017-02-20 12:10 | CT ---
EXAMINATION TYPE: CT soft tissue neck w con DATE OF EXAM: 02/20/2017 HISTORY: Follow up to lymphoma COMPARISON: Prior neck CT July 28, [address] DLP: 3999.7 (neck chest abd pelvis) mGycm. Automated Exposure Control for Dose Reduction was Util ized. TECHNIQUE: CT scan of the neck is performed with IV Contrast, patient injected with 100 mL of Omnipa que 300, axial images are obtained, coronal and sagittal reformatted images are reviewed. FINDINGS: Airway: There is stable 3 mm calcification laterally right thyroid lobe on axial image 29 Parotid/submandibular glands: No gross abnormality seen. Carotid/Vascular Structures: There is persistent moderate to severe calcified plaque at right carotid bulb extending into proximal internal carotid artery without significant stenosis clearly seen. Ther e is more mild to moderate calcified plaque left carotid bulb redemonstrated. There is prominent calc ified plaque in the proximal left vertebral artery which is tortuous redemonstrated. Osseous Structures: Slight underlying scoliotic curvature is redemonstrated Other: There is stable incomplete visualization of right internal jugular Mediport catheter. IMPRESSION: No suspicious adenopathy is seen to suggest neoplastic recurrence. No significant change from prior studies.
--- NOTE | 2017-02-20 12:18 | CT ---
EXAMINATION TYPE: CT ChestAbdPelvis w con DATE OF EXAM: 02/20/2017 COMPARISON: CT chest abdomen and pelvis July 28, 2016 and older studies back through November 10 14 HISTORY: Follow up to lymphoma CT DLP: 3999.7 (neck chest abd pelvis) mGycm. Automated Exposure Control for Dose Reduction was Utili zed. CONTRAST: CT scan of the thorax, abdomen and pelvis is performed with oral and with IV Contrast, patient inject ed with 100 mL of Omnipaque 300. FINDINGS: Artifact is present presumed related to patient's body habitus. LUNGS: There is stable linear scarring anteriorly right midlung near axial image 33. There is no new concerning parenchymal nodule or mass. There is stable 2 mm hyperdense probable calcified nodule supe rior aspect right lower lobe on axial image 42. There is no pleural effusion or pneumothorax seen. T he tracheobronchial tree is patent. MEDIASTINUM: There are no greater than 1 cm hilar or mediastinal lymph nodes. No cardiomegaly or pe ricardial effusion is seen. There is severe three-vessel coronary artery calcification redemonstrate d which is noted marker for coronary artery disease. OTHER: There is stable right internal jugular Mediport catheter terminating in SVC. LIVER/GB: No significant abnormality is appreciated. PANCREAS: No significant abnormality is seen. SPLEEN: No significant abnormality is seen. ADRENALS: No significant abnormality is seen. KIDNEYS: No significant abnormality is seen. BOWEL: The oral contrast reaches level of sigmoid colon. There is no suspicious small or large bowel dilatation. GENITAL ORGANS: No gross abnormality seen. LYMPH NODES: No greater than 1cm abdominal or pelvic lymph nodes are appreciated. OSSEOUS STRUCTURES: Osseous structures are demineralized. There is fairly moderate multilevel spurrin g of the thoracolumbar spine. There is facet arthropathy lower lumbar levels. OTHER: There is fairly moderate calcified plaque of aorta extending into pelvic iliac branch vessels. IMPRESSION: No suspicious new mass or adenopathy is seen to suggest neoplastic recurrence.
== END | disposition home or self-care (01) ==
LOC: RADCTMAIN 09:59
PROVIDERS: ATTEND Internal Medicine Hematology & Oncology
DX: C83.31 Diffuse large B-cell lymphoma, lymph nodes of head, face, and neck (principal)
CPT/HCPCS: 82565; 84520; 70491; 71260; 74177; Q9967; J1642

== ENCOUNTER → 2017-08-03 | Outpatient (CLI) | payer MEDICARE, BC ==
--- NOTE | 2017-08-03 14:46 | CT ---
EXAMINATION TYPE: CT soft tissue neck w con DATE OF EXAM: 08/03/2017 COMPARISON: CT neck February 20, 2017 and older studies back through March 26, 2013. HISTORY: Lymphoma progress study. CT DLP: 903.10 mGycm. Automated Exposure Control for Dose Reduction was Utilized. TECHNIQUE: CT scan of the neck is performed following with IV Contrast, patient injected with 50 mL of Isovue 300. FINDINGS: EXAMINATION TYPE: CT soft tissue neck w con DATE OF EXAM: 08/03/2017 HISTORY: Lymphoma COMPARISON: NONE CT DLP: 903.10 mGycm. Automated Exposure Control for Dose Reduction was Utilized. TECHNIQUE: CT scan of the neck is performed with IV Contrast, patient injected with 50 mL of Isovue 300, axial images are obtained, coronal and sagittal reformatted images are reviewed. FINDINGS: Airway: Asymmetric soft tissue left oral pharyngeal airway on initial study from 2013 shows no suspic ious recurrent tissue on current study and no significant change from most recent CT. Parapharyngeal fat spaces are symmetric and maintained near axial image 71. Subcentimeter nodularity throughout thyr oid gland is felt stable, for reference posterior left thyroid axial image 39. Parotid/submandibular glands: There is stable symmetric mild diffuse fat replaced atrophy of bilatera l parotid glands. Submandibular glands are symmetric and felt within normal limits. Carotid/Vascular Structures: Moderate calcified plaque bilateral carotid bulbs remains present, right greater than left without significant stenosis seen. There is calcified plaque distal vertebral parul jefry bilaterally. Codominant vertebral basilar system is present. Osseous Structures: Some mild multilevel uncovertebral facet degenerative changes bilaterally are red emonstrated.. Other: No new suspicious greater than 1 cm adenopathy is seen. IMPRESSION: No new mass or adenopathy is seen to suggest neoplastic recurrence.
--- NOTE | 2017-08-03 14:58 | CT ---
EXAMINATION TYPE: CT ChestAbdPelvis w con DATE OF EXAM: 08/03/2017 COMPARISON: CT chest abdomen pelvis February 20, 2017 and older studies back through November 10, 2013 HISTORY: lymphoma CT DLP: 3485.10 mGycm. Automated Exposure Control for Dose Reduction was Utilized. CONTRAST: CT scan of the thorax, abdomen and pelvis is performed with oral and with IV Contrast, patient inject ed with 50 mL of Isovue 300. FINDINGS: LUNGS: The lungs are grossly clear, there is no concerning parenchymal mass or nodule identified. T here is no pleural effusion or pneumothorax seen. The tracheobronchial tree is patent. MEDIASTINUM: There are no greater than 1 cm hilar or mediastinal lymph nodes. No cardiomegaly or pe ricardial effusion is seen. Coronary artery calcification is redemonstrated which is noted marker fo r coronary artery disease. OTHER: There is stable right internal jugular Mediport catheter . LIVER/GB: No significant abnormality is appreciated. PANCREAS: No significant abnormality is seen. SPLEEN: No significant abnormality is seen. ADRENALS: No significant abnormality is seen. KIDNEYS: There is stable some cortical thinning in both kidneys. There is symmetric cortical medullar y uptake and excretion from both kidneys without evidence of hydronephrosis bilaterally BOWEL: Oral contrast reaches rectum. There is no suspicious small or large bowel dilatation. Divertic mert in the sigmoid colon are redemonstrated. GENITAL ORGANS: No gross abnormality seen. LYMPH NODES: No greater than 1cm abdominal or pelvic lymph nodes are appreciated. OSSEOUS STRUCTURES: Osseous structures remain demineralized. There is fairly moderate multilevel spur ring in the thoracolumbar spine redemonstrated. OTHER: There is moderate to severe calcified plaque of aorta extending into small branch vessels. IMPRESSION: No new mass or adenopathy is seen to suggest lymphoma recurrence.
== END | disposition home or self-care (01) ==
LOC: RADCTMAIN 12:16
PROVIDERS: ATTEND Internal Medicine Hematology & Oncology
DX: C83.31 Diffuse large B-cell lymphoma, lymph nodes of head, face, and neck (principal)
CPT/HCPCS: 82565; 84520; 70491; 71260; 74177; J1642; Q9967

== ENCOUNTER → 2018-02-18 | Outpatient (CLI) | payer MEDICARE, BC ==
--- NOTE | 2018-02-18 16:11 | CT ---
EXAMINATION TYPE: CT ChestAbdPelvis w con DATE OF EXAM: 02/18/2018 COMPARISON: 08/03/2017 HISTORY: lymphoma CT DLP: 4341.90 combined mGycm CONTRAST: CT scan of the chest, abdomen and pelvis is performed with Oral Contrast and with IV Contrast, patien t injected with 60 mL of Isovue 300. CT Chest: LUNGS: The lungs are clear and free of infiltrate or atelectasis. No pulmonary nodule or mass is det ected. No pleural effusion or CT evidence of interstitial lung disease. MEDIASTINUM: Thoracic aorta is of normal caliber. The heart is not enlarged. No evidence for media stinal mass or adenopathy. HILAR STRUCTURES: No evidence for mass. No hilar adenopathy is appreciated. OTHER: No significant abnormality. CONTRAST CT ABDOMEN AND PELVIS FINDINGS: LIVER/GB: No calcified gallstones. No space occupying hepatic lesion. Biliary tree is of normal ca liber. PANCREAS: No inflammation. No distinct mass. SPLEEN: No splenic enlargement. No lesion seen. ADRENALS: No nodule. No thickening. KIDNEYS/BLADDER: No hydronephrosis. No nephrolithiasis. No disctinct renal mass. BOWEL: Normal appendix. Normal bowel caliber. No inflammation. GENITAL ORGANS: No gross abnormality. LYMPH NODES: No greater than 1cm abdominal or pelvic lymph nodes are appreciated. AORTA: No significant abnormality. OSSEOUS STRUCTURES: No significant abnormality is seen. OTHER: No significant additional abnormality is seen. IMPRESSION: 1. No evidence for mass or adenopathy at this time.
--- NOTE | 2018-02-18 16:13 | CT ---
EXAMINATION TYPE: CT soft tissue neck w con DATE OF EXAM: 02/18/2018 COMPARISON: 08/03/2017 HISTORY: lymphoma CT DLP: 4341.9 combined mGycm CONTRAST: CT scan of the neck is performed with IV Contrast, patient injected with 60 mL of Isovue 300. Contrast enhanced CT of the neck was performed from the skull base through the lung apices. AIRWAY: The supraglottic, glottic, and subglottic portions of the airway appear patent and free of mass. SALIVARY GLANDS: The submandibular and parotid glands are free of mass or inflammatory process. THYROID GLAND: No nodules or masses seen. LYMPH NODES: No adenopathy seen greater than 1cm. LUNG APICES: No nodule or mass is seen. OTHER: Vascular structures are patent. No significant degenerative change of the cervical spine. N o abscess seen. IMPRESSION: No evidence for recurrent mass or adenopathy.
== END ==
LOC: RADCTMAIN 13:29
PROVIDERS: ATTEND Internal Medicine Hematology & Oncology
DX: C83.31 Diffuse large B-cell lymphoma, lymph nodes of head, face, and neck (principal); C83.37 Diffuse large B-cell lymphoma, spleen
CPT/HCPCS: 82565; 84520; 70491; 71260; 74177; 36415; J1642; Q9967 ×2

== ENCOUNTER → 2018-11-01 | Outpatient (CLI) | payer MEDICARE, BC ==
--- NOTE | 2018-11-01 12:44 | CT ---
EXAMINATION TYPE: CT soft tissue neck w con DATE OF EXAM: 11/01/2018 HISTORY: Lymphoma. Prior on synapse. COMPARISON: CT neck February 18, 2018 back through [address] DLP: 4636.40 mGycm. Automated Exposure Control for Dose Reduction was Utilized. TECHNIQUE: CT scan of the neck is performed with IV Contrast, patient injected with 100 mL of Isovue 300, axial images are obtained, coronal and sagittal reformatted images are reviewed. FINDINGS: Airway: Airway is patent. No recurrent left oral pharyngeal mucosal mass identified. Epiglottis and v allecula are maintained. Thyroid gland is within normal limits. Parotid/submandibular glands: Some generalized fatty-replaced atrophy of bilateral parotid glands. Carotid/Vascular Structures: Moderate to severe plaque right greater than left carotid bulbs, stenosi s greater than 50% may be present proximal right internal carotid artery axial image 60. Osseous Structures: Slight dextroconvex scoliotic curvature. Other: Partial visualization of right subclavian Mediport catheter IMPRESSION: 1. No suspicious recurrent mass or adenopathy. 2. Increasing fairly severe degenerative change right carotid bulb, cannot exclude hemodynamically si gnificant stenosis proximal internal carotid artery. Advise carotid ultrasound follow-up to evaluate.
--- NOTE | 2018-11-01 14:37 | CT ---
EXAMINATION TYPE: CT ChestAbdPelvis w con DATE OF EXAM: 11/01/2018 COMPARISON: CT chest abdomen and pelvis February 18, 2018 and older CTs. HISTORY: Lymphoma CT DLP: 4636.40 mGycm. Automated Exposure Control for Dose Reduction was Utilized. CONTRAST: CT scan of the thorax, abdomen and pelvis is performed with IV Contrast, patient injected with 100 mL of Isovue 300. FINDINGS: LUNGS: The lungs are grossly clear, there is no concerning parenchymal mass or nodule identified. T here is no pleural effusion or pneumothorax seen. The tracheobronchial tree is patent. MEDIASTINUM: There are no greater than 1 cm hilar or mediastinal lymph nodes. No cardiomegaly or pe ricardial effusion is seen. Coronary constipation redemonstrated which is noted marker for underlyin g coronary artery disease. OTHER: Stable right internal jugular Mediport catheter terminating in proximal SVC. LIVER/GB: No significant abnormality is appreciated. PANCREAS: No significant abnormality is seen. SPLEEN: No significant abnormality is seen. ADRENALS: No significant abnormality is seen. KIDNEYS: No significant abnormality is seen. BOWEL: Oral contrast does not reach level of terminal ileum. No suspicious small and large bowel dila tation. Some diverticula in the sigmoid colon. GENITAL ORGANS: No gross abnormality seen. LYMPH NODES: No greater than 1cm abdominal or pelvic lymph nodes are appreciated. OSSEOUS STRUCTURES: [id number] multilevel spurring in the thoracic spine redemonstrated. OTHER: Moderate calcified plaque of the aorta extends into branch vessels. IMPRESSION: No suspicious new mass or adenopathy is identified to suggest neoplastic recurrence.
== END | disposition home or self-care (01) ==
LOC: RADPROMAIN 07:15
PROVIDERS: ATTEND Internal Medicine Hematology & Oncology
DX: I65.21 Occlusion and stenosis of right carotid artery (principal); C83.31 Diffuse large B-cell lymphoma, lymph nodes of head, face, and neck
CPT/HCPCS: 82565; 84520; 70491; 71260; 74177; J1642; Q9967

== ENCOUNTER 2020-04-11 10:05 | Day surgery (SDC) | payer MEDICARE, BC ==
[~2020-04-11 10:05] MED LIST: NA PHOS,M-B/NA PHOS,DI-BA 133 ML ENEMA RECTAL ONE
[2020-04-11 11:21] VITALS: TEMP 97.3
[2020-04-11] MEDS ORDERED: LIDOCAINE 1% (10MG/ML) FOR IV START INTRADERMA ONE (11:32)
[2020-04-11] MEDS ORDERED: LACTATED RINGERS 1,000 ML IV ONE (11:32)
[2020-04-11] MEDS ORDERED: PROPOFOL 10 MG/ML 20 ML VIAL IV ONE (11:52)
[2020-04-11] MEDS ORDERED: LIDOCAINE 1% INJ 10MG/ML (20 ML MDV) ONE (11:52)
--- NOTE | 2020-04-11 12:08 | P.PCN ---
Date of Procedure: 04/11/20 Procedure(s) Performed: BRIEF HISTORY: Patient is a 79-year-old pleasant white male scheduled for an elflexible sigmoid endoscopy as part of evaluation of rectal mass. Patient had a colonoscopy done a week ago at [facility] and he was noted to have a rectal mass involving the distal rectum and biopsies were negative for malignancy.. He is hence scheduled for repeat endoscopy today. PROCEDURE PERFORMED: Colonoscopy. PREOPERATIVE DIAGNOSIS: Rectal mass IV sedation per Anesthesia. PROCEDURE: After informed consent was obtained, the patient, was brought into the endoscopy unit. IV sedation was administered by Anesthesia under continuous monitoring. Digital rectal examination was normal. Initially the Olympus CF-160 flexible video colonoscope was then inserted in the rectum, gradually advanced into the sigmoid colon. The colon appeared normal. There was a circumferential ulcerated mass noted in the distal rectum extending from the dentate line to send 10 cm proximally and multiple biopsies were done from this area. The patient tolerated the procedure well. IMPRESSION: Large distal rectal ulceration mass extending from the dentate line to 10 cm proximally, status post multiple biopsies Sigmoid colon appeared normal. RECOMMENDATIONS: Findings of this examination were discussed with the patient as well as his family. He was advised to follow with the biopsy results be seen in office in 5 days.
[2020-04-11 12:34] VITALS: BP 112/56; PULSE 78; RESP 20
== END 2020-04-11 13:22 | disposition home or self-care (01) ==
LOC: ORWHC2ENDO 10:05
PROVIDERS: ATTEND Internal Medicine Gastroenterology
DX: C83.39 Diffuse large B-cell lymphoma, extranodal and solid organ sites (principal); K62.6 Ulcer of anus and rectum; K62.1 Rectal polyp; K08.109 Complete loss of teeth, unspecified cause, unspecified class; I10 Essential (primary) hypertension; E78.5 Hyperlipidemia, unspecified; Z79.899 Other long term (current) drug therapy; Z79.84 Long term (current) use of oral hypoglycemic drugs; Z79.82 Long term (current) use of aspirin; Z79.891 Long term (current) use of opiate analgesic; Z95.810 Presence of automatic (implantable) cardiac defibrillator; Z90.89 Acquired absence of other organs; Z98.890 Other specified postprocedural states; Z85.89 Personal history of malignant neoplasm of other organs and systems; Z85.79 Personal history of other malignant neoplasms of lymphoid, hematopoietic and related tissues; Z87.2 Personal history of diseases of the skin and subcutaneous tissue
CPT/HCPCS: 88305; 88342; 88341; 45331; J2001; J2704

== ENCOUNTER → 2020-05-05 | Outpatient (CLI) | payer MEDICARE, BC ==
--- NOTE | 2020-05-08 07:22 | PE ---
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 TECHNIQUE: Following the intravenous administration of 12.38 mCi of F-18 FDG, whole body images are performed from the skull base to the midthigh. Images are reviewed on the computer in the coronal, a xial, and sagittal planes. Reconstructed rotating images are created on independent workstation and reviewed on the computer. A localization and attenuation correction CT is performed in conjunction with the PET scan. Blood glucose level was 120. SCAN: Subsequent Scan FINDINGS: Mean SUV mediastinum: 0.62 Mean SUV liver: 2.39 SKULL BASE AND NECK: No areas of abnormal hypermetabolic uptake. CHEST, MEDIASTINUM, AND HILAR REGION: No areas of abnormal hypermetabolic uptake. ABDOMEN AND PELVIS: Normal excretion in kidneys and bladder. There is mild to moderately dilated rectum with suspected abnormal soft tissue posteriorly that has a bnormal hypermetabolic uptake, max SUV is 25.18. This is larger area of involvement suspected from an us through mid segment of the rectum, there is serosal breakthrough with right posterior 2.2 x 1.4 cm hypermetabolic tumor extension axial image 234. There is abnormal hypermetabolic presacral soft tissue lesion measuring roughly 3.4 x 1.1 cm axial im age 222, max SUV is 20.7. Abnormal 8 to 9 mm right iliac chain lymph node image 218, max SUV is 7.5. There is abnormal 7 mm hyp ermetabolic left mid pelvic lesion or lymph node axial image 213. The max SUV 6.87. There is addition al abnormal retroperitoneal hypermetabolic adenopathy, for reference two adjacent lymph node left par a-aortic region distally, the more medial one measures 1.7 x 1.2 cm axial image 184, max SUV is 11.42 There is abnormal hypermetabolic right groin lymph node measuring 2.1 x 1.2 cm axial image 245, max S UV is 12.29. OSSEOUS STRUCTURES: No areas of abnormal hypermetabolic uptake. OTHER CT: Moderate calcified plaque right greater than left carotid bulbs. Right internal jugular Med iport catheter terminates at SVC origin. The lung volumes. Severe three-vessel coronary artery calcif ication. Mild cardiomegaly. Cortical thinning in both kidneys. Prominent calcified plaque of smaller vessels. IMPRESSION: Long segment neoplasm rectum remain missed with subserosal spread, abnormal lower abdomin al and pelvic adenopathy along with abnormal right groin adenopathy. Further details as discussed abo ve.
== END | disposition home or self-care (01) ==
LOC: RADPETMAIN 07:55
PROVIDERS: ATTEND Internal Medicine Hematology & Oncology
DX: C20 Malignant neoplasm of rectum (principal); C83.39 Diffuse large B-cell lymphoma, extranodal and solid organ sites; E11.9 Type 2 diabetes mellitus without complications; I65.23 Occlusion and stenosis of bilateral carotid arteries; I25.10 Atherosclerotic heart disease of native coronary artery without angina pectoris; I51.7 Cardiomegaly; M79.89 Other specified soft tissue disorders; R59.0 Localized enlarged lymph nodes; Z92.21 Personal history of antineoplastic chemotherapy
CPT/HCPCS: 78815; A9552

== ENCOUNTER 2020-06-29 16:06 | Inpatient (IN) | payer MEDICARE, BC ==
--- NOTE | 2020-06-29 17:05 | ED ---
General Adult HPI - General Chief complaint: Weakness Stated complaint: Chemo side affects, hypotensive Time Seen by Provider: 06/29/20 16:19 Source: patient Mode of arrival: ambulatory Limitations: no limitations - History of Present Illness Initial comments: Dictation was produced using [employer] dictation software. please excuse any grammatical, word or spelling errors. This patient was cared for during a federal and state declared state of [facility] secondary to Covid 19 Chief Complaint: 79-year-old male presents emergency department for weakness, elevated blood sugar History of Present Illness: Patient is a 79-year-old male who has past medical history of lymphoma, coronary artery disease, diabetes, dyslipidemia. Presents to the emergency department today for increased generalized weakness and elevated blood sugar. 6 accompanied by his daughter who was at the bedside. 3 days ago he completed a round of chemotherapy to treat his lymphoma by his oncologist. Been having some issues with the chemotherapy including low blood pressure, worsening weakness. Patient has any pain complaints at this time. He recently had his blood pressure medications discontinued due to hypotension. Patient has any fever, chills or night sweats. Denies any coughing. No shortness of breath. No nausea or vomiting. The ROS documented in this emergency department record has been reviewed and confirmed by me. Those systems with pertinent positive or negative responses have been documented in the HPI. All other systems are other negative and/or noncontributory. PHYSICAL EXAM: General Impression: Alert and oriented x3, not in acute distress HEENT: Normocephalic atraumatic, extra-ocular movements intact, pupils equal and reactive to light bilaterally, mucous membranes moist. Cardiovascular: Heart regular rate and rhythm Chest: Able to complete full sentences, no retractions, no tachypnea Abdomen: abdomen soft, non-tender, non-distended, no organomegaly Musculoskeletal: Pulses present and equal in all extremities, no peripheral edema Motor: no focal deficits noted Neurological: CN II-XII grossly intact, no focal motor or sensory deficits noted Skin: Intact with no visualized rashes Psych: Normal affect and mood ED course: 79-year-old male presents to the emergency department for weakness. He is a lymphoma patient and recently come. A round of chemotherapy. All signs upon arrival shows blood pressure 97/61, rest of vital signs within acceptable limits. Laboratory evaluation obtained. There is pancytopenia with a leukopenia 0.2, hemoglobin 7.2, platelets of 26. Venous blood gas shows findings within a cceptable limits. Metabolic panel shows an 1:30, BUN of 42 with a creatinine 1.06, glucose of 283, lactic acidosis 2.6. Patient reevaluated at bedside. He states that he feels very weak and unable to perform his activities of daily living. Clinical presentation concerning for prerenal azotemia secondary to poor oral intake status post recent chemotherapy. Patient given intravenous fluids. He will be admitted. Case discussed with Dr. Katz. Oncology consult it. EKG interpretation: Ventricular rate 95, left bundle branch block, sinus rhythm,. Interval 140, QRS 154, QTC 490. No WI prolongation, no QTC prolongation, no ST or T-wave changes noted. No old EKG for comparison - Related Data Home Medications Medication Instructions Recorded Confirmed Aspirin EC [Ecotrin Low Dose] 81 mg PO DAILY 04/20/16 06/29/20 Furosemide [Lasix] 40 mg PO DAILY@1200 04/20/16 06/29/20 Pioglitazone [Actos] 30 mg PO DAILY 04/20/16 06/29/20 Simvastatin [Zocor] 40 mg PO HS 04/20/16 06/29/20 Lidocaine-Prilocaine Cream [Emla 1 applic TOPICAL DAILY PRN 06/29/20 06/29/20 Cream 2.5%/2.5%] Matulane 50mg 100 mg PO DIRECTED 06/29/20 06/29/20 Pantoprazole Sodium 40 mg PO DAILY PRN 06/29/20 06/29/20 Prochlorperazine [Compazine] 10 mg PO Q6H PRN 06/29/20 06/29/20 dronabinoL [Dronabinol] 5 mg PO BID 06/29/20 06/29/20 glipiZIDE XL [Glucotrol Xl] 10 mg PO DAILY 06/29/20 06/29/20 metFORMIN HCL 1,000 mg PO BID 06/29/20 06/29/20 predniSONE [Deltasone] 120 mg PO DIRECTED 06/29/20 06/29/20 sitaGLIPtin [Januvia] 50 mg PO DAILY 06/29/20 06/29/20 Allergies Allergy/AdvReac Type Severity Reaction Status Date / Time No Known Allergies Allergy Verified 06/29/20 17:52 Review of Systems ROS Statement: Those systems with pertinent positive or pertinent negative responses have been documented in the HPI. ROS Other: All systems not noted in ROS Statement are negative. Past Medical History Past Medical History: Coronary Artery Disease (CAD), Cancer, Diabetes Mellitus, Eye Disorder, Hyperlipidemia, Hypertension Additional Past Medical History / Comment(s): TONSIL CANCER, SKIN CA, TOE NAIL INFECTION. lYMPHOMA History of Any Multi-Drug Resistant Organisms: None Reported Past Surgical History: Tonsillectomy Additional Past Surgical History / Comment(s): EYE SURGERY Past Anesthesia/Blood Transfusion Reactions: No Reported Reaction Past Psychological History: No Psychological Hx Reported Smoking Status: Never smoker Past Alcohol Use History: None Reported Past Drug Use History: None Reported - Past Family History Mother Family Medical History: Diabetes Mellitus Father Family Medical History: Cancer General Exam Limitations: no limitations Course Vital Signs 06/29/20 16:16 Temperature 98.4 F Pulse Rate 99 Respiratory 18 Rate Blood Pressure 97/61 O2 Sat by Pulse 97 Oximetry Medical Decision Making - Lab Data Result diagrams: 06/29/20 16:49 06/29/20 16:49 Lab Results 06/29/20 06/29/20 06/29/20 Range/Units 16:49 16:49 16:49 WBC 0.2 L* (3.8-10.6) k/uL RBC 2.42 L (4.30-5.90) m/uL Hgb 7.2 L (13.0-17.5) gm/dL Hct 21.7 L (39.0-53.0) % MCV 89.5 (80.0-100.0) fL MCH 30.0 (25.0-35.0) pg MCHC 33.5 (31.0-37.0) g/dL RDW 16.8 H (11.5-15.5) % Plt Count 26 L (150-450) k/uL MPV 10.1 Neutrophils # NICKEL PLATER Differential Comment Anisocytosis Slight VBG pH (7.31-7.41) VBG pCO2 (37-51) mmHg VBG HCO3 (24-28) mmol/L Sodium 130 L (137-145) mmol/L Potassium 4.1 (3.5-5.1) mmol/L Chloride 97 L (98-107) mmol/L Carbon Dioxide 25 (22-30) mmol/L Anion Gap 8 mmol/L BUN 42 H (9-20) mg/dL Creatinine 1.06 (0.66-1.25) mg/dL Est GFR (CKD-EPI)AfAm 78 (>60 ml/min/1.73 sqM) Est GFR (CKD-EPI)NonAf 67 (>60 ml/min/1.73 sqM) Glucose 283 H (74-99) mg/dL Plasma Lactic Acid Anthony 2.6 H* (0.7-2.0) mmol/L Calcium 8.3 L (8.4-10.2) mg/dL Magnesium 1.8 (1.6-2.3) mg/dL Total Bilirubin 1.7 H (0.2-1.3) mg/dL AST 18 (17-59) U/L ALT 16 (4-49) U/L Alkaline Phosphatase 58 (38-126) U/L Total Protein 5.1 L (6.3-8.2) g/dL Albumin 3.0 L (3.5-5.0) g/dL 06/29/20 Range/Units 16:49 WBC (3.8-10.6) k/uL RBC (4.30-5.90) m/uL Hgb (13.0-17.5) gm/dL Hct (39.0-53.0) % MCV (80.0-100.0) fL MCH (25.0-35.0) pg MCHC (31.0-37.0) g/dL RDW (11.5-15.5) % Plt Count (150-450) k/uL MPV Neutrophils # Differential Comment Anisocytosis VBG pH 7.47 H (7.31-7.41) VBG pCO2 34 L (37-51) mmHg VBG HCO3 25 (24-28) mmol/L Sodium (137-145) mmol/L Potassium (3.5-5.1) mmol/L Chloride (98-107) mmol/L Carbon Dioxide (22-30) mmol/L Anion Gap mmol/L BUN (9-20) mg/dL Creatinine (0.66-1.25) mg/dL Est GFR (CKD-EPI)AfAm (>60 ml/min/1.73 sqM) Est GFR (CKD-EPI)NonAf (>60 ml/min/1.73 sqM) Glucose (74-99) mg/dL Plasma Lactic Acid Anthony (0.7-2.0) mmol/L Calcium (8.4-10.2) mg/dL Magnesium (1.6-2.3) mg/dL Total Bilirubin (0.2-1.3) mg/dL AST (17-59) U/L ALT (4-49) U/L Alkaline Phosphatase (38-126) U/L Total Protein (6.3-8.2) g/dL Albumin (3.5-5.0) g/dL Disposition Clinical Impression: Weakness Disposition: ADMITTED IP TO THIS HOSP Condition: Fair Referrals: Freddy Cooper MD [STAFF PHYSICIAN] - 1-2 days
[2020-06-29 17:22] LABS: Calcium 8.3 mg/dL (8.4-10.2); Magnesium 1.8 mg/dL (1.6-2.3); Potassium 4.1 mmol/L (3.5-5.1); Total Bilirubin 1.7 mg/dL (0.2-1.3); Total Protein 5.1 g/dL (6.3-8.2); VBG PH 7.47 (7.31-7.41)
[2020-06-29 17:30] LABS: Anisocytosis Slight; HCT 21.7 % (39.0-53.0); HGB 7.2 gm/dL (13.0-17.5); MCHC 33.5 g/dL (31.0-37.0); MCV 89.5 fL (80.0-100.0); Mean Platelet Volume 10.1; RBC 2.42 m/uL (4.30-5.90); RDW 16.8 % (11.5-15.5)
[2020-06-29 17:55] LABS: WBC 0.2 k/uL (3.8-10.6)
[2020-06-29 17:59] LABS: Platelet Count 26 k/uL (150-450)
[2020-06-29] MEDS ORDERED: SODIUM CHLORIDE 0.9% 1,000 ML IV STA (18:04)
[2020-06-29] MEDS ORDERED: NALOXONE 0.4 MG/ML 1 ML VIAL IV PRN (19:04)
[2020-06-29] MEDS ORDERED: ONDANSETRON 4 MG/2 ML VIAL IVP PRN (19:04)
[2020-06-29 21:54] LABS: Glucose,Whole Blood 261 mg/dL (75-99)
[2020-06-29] MEDS: INSULIN ASPART (NovoLOG) 100 UNIT/ML VIAL SQ SCH (23:45)
[2020-06-29] MEDS: ATORVASTATIN 20 MG TAB PO SCH (23:45)
[2020-06-29] MEDS: SODIUM CHLORIDE 0.9% 1,000 ML IV SCH (23:45)
[2020-06-30] MEDS: SODIUM CHLORIDE 0.9% 1,000 ML IV SCH ×3 (06:01→14:04)
[2020-06-30 07:24] LABS: Glucose,Whole Blood 261 mg/dL (75-99)
[2020-06-30] MEDS: INSULIN ASPART (NovoLOG) 100 UNIT/ML VIAL SQ SCH ×4 (08:13→22:07)
[2020-06-30] MEDS: metFORMIN 500 MG TAB PO SCH (08:13)
[2020-06-30] MEDS: PIOGLITAZONE 30 MG TAB PO SCH (08:13)
[2020-06-30] MEDS: ASPIRIN 81 MG PO SCH (08:13)
[2020-06-30] MEDS: PANTOPRAZOLE 40 MG/10 ML VIAL IV SCH (08:13)
[2020-06-30] MEDS: LINAGLIPTIN 5 MG TABLET PO SCH (08:14)
--- NOTE | 2020-06-30 11:26 | P.HPIM ---
History of Present Illness H&P Date: 06/30/20 Chief Complaint: Dehydration, weakness This is a 79-year-old male with a past medical history of lymphoma, coronary artery disease, diabetes, dyslipidemia. Patient presented to the emergency room for generalized weakness. Per patient he has last chemotherapy 3 days ago for his lymphoma, he follows with Dr. Jerry. Patient reports loss of appetite, diarrhea but seems to be chronic, denies any nausea or vomiting, or abdominal pain. Upon arrival to the emergency department, blood pressure a little on the lower side on he is afebrile 98.4, heart rate of 99, he is 97% on room air. Laboratory values showed WBC of 0.2, hemoglobin of 7.2, platelet count of 26 sodium 1:30, BUN 42, creatinine 1.06. COVID testing was negative. Patient admitted to the hospital with oncology on consult. Patient noted to have +1 edema IV fluids turned down to 75 miles per hour. Review of Systems Constitutional: Reports fatigue, Reports weakness, Denies chills, Denies chronic pain, Denies fever, Denies lethargy, Denies malaise Ears, nose, mouth and throat: Denies dysphagia, Denies epistaxis, Denies headache, Denies sinus pain, Denies sinus pressure, Denies sore throat Cardiovascular: Reports edema, Reports leg edema, Denies dyspnea on exertion, Denies high blood pressure, Denies orthopnea, Denies palpitations, Denies shortness of breath, Denies syncope Respiratory: Denies cough, Denies dyspnea, Denies excessive sputum, Denies hemoptysis, Denies pain Gastrointestinal: Reports diarrhea, Reports loss of appetite, Denies dyspepsia, Denies nausea, Denies vomiting Genitourinary: Denies discharge, Denies dysuria, Denies hematuria, Denies nocturia, Denies urinary frequency, Denies urinary hesitancy, Denies urinary retention Musculoskeletal: Denies atrophy, Denies fractures, Denies frequent falls, Denies gait dysfunction, Denies leg numbness/tingling Integumentary: Reports rash, Denies growths, Denies lesions, Denies wounds Neurological: Reports weakness, Denies gait dysfunction, Denies memory loss, Denies migraines, Denies motor disturbance, Denies numbness, Denies paralysis, Denies syncope, Denies vertigo Psychiatric: Reports change in appetite, Denies confusion, Denies depression, Denies hallucinations, Denies insomnia, Denies memory loss, Denies mood swings, Denies paranoia Endocrine: Reports fatigue, Reports high blood sugars, Denies flushing, Denies low blood sugars, Denies nocturia, Denies palpitations, Denies polyphagia, Denies polyuria Past Medical History Past Medical History: Coronary Artery Disease (CAD), Cancer, Diabetes Mellitus, Eye Disorder, Hyperlipidemia, Hypertension Additional Past Medical History / Comment(s): TONSIL CANCER, SKIN CA, TOE NAIL INFECTION. lYMPHOMA History of Any Multi-Drug Resistant Organisms: None Reported Past Surgical History: Tonsillectomy Additional Past Surgical History / Comment(s): EYE SURGERY Past Anesthesia/Blood Transfusion Reactions: No Reported Reaction Past Psychological History: No Psychological Hx Reported Smoking Status: Former smoker Past Alcohol Use History: None Reported Past Drug Use History: None Reported - Past Family History Mother Family Medical History: Diabetes Mellitus Father Family Medical History: Cancer Medications and Allergies Home Medications Medication Instructions Recorded Confirmed Type Aspirin EC [Ecotrin Low Dose] 81 mg PO DAILY 04/20/16 06/29/20 History Furosemide [Lasix] 40 mg PO DAILY@1200 04/20/16 06/29/20 History Pioglitazone [Actos] 30 mg PO DAILY 04/20/16 06/29/20 History Simvastatin [Zocor] 40 mg PO HS 04/20/16 06/29/20 History Lidocaine-Prilocaine Cream [Emla 1 applic TOPICAL DAILY PRN 06/29/20 06/29/20 History Cream 2.5%/2.5%] Matulane 50mg 100 mg PO DIRECTED 06/29/20 06/29/20 History Pantoprazole Sodium 40 mg PO DAILY PRN 06/29/20 06/29/20 History Prochlorperazine [Compazine] 10 mg PO Q6H PRN 06/29/20 06/29/20 History dronabinoL [Dronabinol] 5 mg PO BID 06/29/20 06/29/20 History glipiZIDE XL [Glucotrol Xl] 10 mg PO DAILY 06/29/20 06/29/20 History metFORMIN HCL 1,000 mg PO DAILY 06/29/20 06/29/20 History predniSONE [Deltasone] 120 mg PO DIRECTED 06/29/20 06/29/20 History sitaGLIPtin [Januvia] 50 mg PO DAILY 06/29/20 06/29/20 History Allergies Allergy/AdvReac Type Severity Reaction Status Date / Time No Known Allergies Allergy Verified 06/29/20 17:52 Physical Exam Vitals: Vital Signs Temp Pulse Pulse Resp BP BP Pulse Ox 06/30/20 03:57 98.5 F 104 H 20 97/59 93 L 06/29/20 21:33 97.6 F 100 14 96/61 92 L 06/29/20 21:30 104 H 20 06/29/20 20:18 97.5 F L 102 H 18 101/63 95 06/29/20 16:16 98.4 F 99 18 97/61 97 Intake and Output 06/29/20 06/30/20 06/30/20 22:59 06:59 14:59 Intake Total 600 Output Total 250 Balance -250 600 Intake: Intake, IV Titration 600 Amount Sodium Chloride 0.9% 1, 600 000 ml @ 120 mls/hr IV . Q8H20M [facility] Rx#:[id number] Output: Urine 250 Other: Voiding Method Urinal Urinal Diaper Diaper # Voids 1 Weight 100.698 kg - Constitutional General appearance: average body habitus, cooperative, no acute distress - EENT Eyes: EOMI, PERRLA, normal appearance ENT: hearing grossly normal, normal oropharynx, no pharyngeal erythema, no thrus h, no tonsillar swelling - Respiratory Respiratory: bilateral: CTA, negative: diminished, dullness, rales, rhonchi, wheezing - Cardiovascular Rhythm: regular Heart sounds: normal: S1, S2 leg Peripheral Edema: bilateral: 1+ - Gastrointestinal General gastrointestinal: decreased bowel sounds, no distended, no hepatomegaly, normal bowel sounds, no organomegaly, no rigid, soft, no tenderness - Integumentary Integumentary: pale, rash - Neurologic Neurologic: CNII-XII intact - Musculoskeletal Musculoskeletal: generalized weakness - Psychiatric Psychiatric: A&O x's 3, appropriate affect, intact judgment & insight Results CBC & Chem 7: 07/01/20 02:41 07/01/20 02:41 Labs: Abnormal Lab Results - Last 24 Hours (Table) 06/29/20 06/29/20 06/29/20 Range/Units 16:49 16:49 16:49 WBC 0.2 L* (3.8-10.6) k/uL RBC 2.42 L (4.30-5.90) m/uL Hgb 7.2 L (13.0-17.5) gm/dL Hct 21.7 L (39.0-53.0) % RDW 16.8 H (11.5-15.5) % Plt Count 26 L (150-450) k/uL VBG pH (7.31-7.41) VBG pCO2 (37-51) mmHg Sodium 130 L (137-145) mmol/L Chloride 97 L (98-107) mmol/L BUN 42 H (9-20) mg/dL Glucose 283 H (74-99) mg/dL POC Glucose (mg/dL) (75-99) mg/dL Plasma Lactic Acid Anthony 2.6 H* (0.7-2.0) mmol/L Calcium 8.3 L (8.4-10.2) mg/dL Total Bilirubin 1.7 H (0.2-1.3) mg/dL Total Protein 5.1 L (6.3-8.2) g/dL Albumin 3.0 L (3.5-5.0) g/dL 06/29/20 06/29/20 06/30/20 Range/Units 16:49 21:52 07:22 WBC (3.8-10.6) k/uL RBC (4.30-5.90) m/uL Hgb (13.0-17.5) gm/dL Hct (39.0-53.0) % RDW (11.5-15.5) % Plt Count (150-450) k/uL VBG pH 7.47 H (7.31-7.41) VBG pCO2 34 L (37-51) mmHg Sodium (137-145) mmol/L Chloride (98-107) mmol/L BUN (9-20) mg/dL Glucose (74-99) mg/dL POC Glucose (mg/dL) 261 H 261 H (75-99) mg/dL Plasma Lactic Acid Anthony (0.7-2.0) mmol/L Calcium (8.4-10.2) mg/dL Total Bilirubin (0.2-1.3) mg/dL Total Protein (6.3-8.2) g/dL Albumin (3.5-5.0) g/dL Thrombosis Risk Factor Assmnt - Choose All That Apply Any of the Below Risk Factors Present?: Yes Each Factor Represents 1 point: Medical pt on bed rest, Obesity (BMI >25) Other Risk Factors: Yes Each Risk Factor Represents 2 Points: Central venous access, Malignancy Each Risk Factor Represents 3 Points: Age 75 years or older Thrombosis Risk Factor Assessment Total Risk Factor Score: 9 Thrombosis Risk Factor Assessment Level: High Risk Assessment and Plan Plan: 1. Generalized weakness and dehydration secondary to chemotherapy. Will continue with IV hydration with normal saline at 75 miles per hour, Zofran as needed along with Marinol 5 mg twice a day. Repeat labs tomorrow, ensure added 2. History of lymphoma. Oncology on consult. 3. Pancytopenia with leukopenia secondary from chemotherapy. Will repeat CBC tomorrow 4. ABDs mellitus type II with hyperglycemia. Will continue with Accu-Cheks with NovoLog sliding scale, continue Tradjenta 5 mg, metformin 1000 mg daily, Actos 30 mg daily. 5. History of coronary artery disease. stable 6. Hypotension secondary to dehydration. Home blood pressure medications currently on hold, may add Midodrine if blood pressure does not improve with hydration 7. Hyperlipidemia. On Lipitor 20 mg daily 8. Laura infection to bilateral groin. On nystatin cream twice a day 9. DVT prophylaxis. Pneumatic compression stockings 10. GI prophylaxis pantoprazole The above impression and plan of care have been discussed and directed by signing physician. Arely Tinoco nurse practitioner acting as scribe for signing physician.
[2020-06-30 11:49] LABS: Glucose,Whole Blood 272 mg/dL (75-99)
[2020-06-30] MEDS: NYSTATIN 100,000UNIT/GM CREAM 30 GM TUBE TOPICAL SCH ×2 (13:06→22:07)
[2020-06-30 17:35] LABS: Glucose,Whole Blood 263 mg/dL (75-99)
[2020-06-30] MEDS ORDERED: FUROSEMIDE 10 MG/ML 4 ML VIAL IV STA (17:54)
[2020-06-30] MEDS ORDERED: POTASSIUM CHLORIDE ER 20 MEQ TAB.ER PO STA (17:55)
--- NOTE | 2020-06-30 18:37 | XR ---
EXAMINATION TYPE: XR chest 1V portable DATE OF EXAM: 06/30/2020 COMPARISON: 04/20/2016 HISTORY: Fall. Chest pain. TECHNIQUE: Single view FINDINGS: There is pulmonary vascular congestion. There is airspace infiltrate right lower lobe. Ther e is right central venous catheter with tip in the superior vena cava. Heart size is fairly normal. IMPRESSION: Congestive heart failure with small pleural effusions. Right lower lobe pneumonia. Abnorm alities are new compared to old exam.
--- NOTE | 2020-06-30 18:54 | CONS ---
CONSULTATION DATE OF SERVICE: June 30, 2020. REASON FOR CONSULTATION: Diffuse large B-cell lymphoma. HISTORY OF PRESENT ILLNESS: Mr. Casey is a very pleasant 79-year-old gentleman very well known to our practice. He was initially diagnosed with diffuse large B-cell lymphoma involving the left tonsillar fossa and that was back in in 2013. At that time, he was treated with 6 cycles of R-CHOP which was completed in October 2013 and he achieved a very good response. He did well until April of 2020 when he presented with an issue of diarrhea without any obvious bleeding. He underwent a colonoscopy and he was found to have a large rectal mass extending from the dentate line approximately 10 cm. Initial biopsies were negative and he underwent a repeat sigmoidoscopy in March of 2020, which was positive for diffuse large B-cell lymphoma, germinal center and was negative for BCL2 expression. He did have a PET scan done at that time, which revealed uptake at the primary site as well as intrapelvic lymph node. The patient started on chemotherapy with RCEPP regimen on 05/21/2020. He has received so far a total of 2 cycles to home to. He has received so far 2 cycles, his last treatment was on 06/25/2020. He presented to the emergency department yesterday because of weakness and elevated blood sugar. In the emergency department, he was found to be somewhat hypotensive but afebrile. There was a heart rate of 99. LABORATORY: Workup revealed WBC of 0.2 with a hemoglobin 7.2, and platelet count of 26. His BUN was 42 and creatinine 1.06. His Covid testing was negative. He ended up being admitted to the hospital for generalized weakness and dehydration. Recurrent weakness and dehydration, now is on oncology floor. He is resting comfortably and his at his bedside. There is no fever or chills. No nausea or vomiting, but he is overall feeling weak and tired. PAST MEDICAL HISTORY: In addition to what is stated above in regard to his lymphoma, he has hypertension, hyperlipidemia, coronary artery disease and diabetes mellitus. PAST SURGICAL HISTORY: He had a tonsillectomy in the past. Eye surgery. FAMILY HISTORY: His father had cancer. SOCIAL HISTORY: He is a former smoker. No alcohol abuse or substance abuse. REVIEW OF SYSTEMS: As stated above in history of present illness, otherwise negative. PHYSICAL EXAMINATION: He appears very tired. His vital signs are temperature 98.5, afebrile, pulse is 100, regular, respiration 18, blood pressure 96/71. HEENT: Normocephalic, atraumatic. No icterus. Oral mucosa are dry. NECK: Supple. CHEST: Equal expansion bilaterally. LUNGS: Clear to auscultation. HEART is regular rate and rhythm. ABDOMEN: Soft. No masses or organomegaly noted. EXTREMITIES reveal no significant edema. SKIN reveals a few bruises. No ecchymosis or petechiae. LABORATORY DATA: WBC 0.2, hemoglobin 7.2, hematocrit is 21.7. The platelets are 26. Sodium 130, potassium 4.1, chloride 96, CO2 is 25, BUN 42, creatinine 1.06, calcium is 8.3, magnesium 1.8. Bilirubin 1.7, AST 18, ALT 16, alkaline phosphatase 58. His lactic acid was 2.6 and it was repeated later it was 1.6 and his blood sugar was 261. IMPRESSION: 1. Diffuse large B-cell lymphoma with recent recurrence as stated above. Currently is on RCEPP regimen. 2. Pancytopenia secondary to above. Patient is significant neutropenic but is currently afebrile and he did receive Neulasta in the outpatient setting. 3. Hyperglycemia likely in part related to prednisone used in his RCEPP regimen. 4. Hypotension and dehydration. RECOMMENDATION: 1. The patient will require IV hydration. 2. Given his significant weakness, he may benefit from transfusion with 1 unit of packed red blood cells which we will obtain. 3. Monitor for any evidence of infection and I would recommend to obtain a urinalysis and blood culture as well. The above was discussed with the patient and his at bedside. Thank you for the consultation. MMODL / IJN: [id number] /
[2020-06-30 20:31] LABS: Anisocytosis Slight; HCT 23.4 % (39.0-53.0); HGB 7.7 gm/dL (13.0-17.5); MCH 30.4 pg (25.0-35.0); MCV 92.1 fL (80.0-100.0); Mean Platelet Volume 10.7; RBC 2.54 m/uL (4.30-5.90); RDW 17.1 % (11.5-15.5)
[2020-06-30 20:38] LABS: Platelet Count 31 k/uL (150-450); WBC 0.5 k/uL (3.8-10.6)
[2020-06-30 20:49] LABS: Glucose,Whole Blood 283 mg/dL (75-99)
[2020-06-30 21:08] LABS: Ovalocytes Present; Polychromasia Present
[2020-06-30 21:13] LABS: Poikilocytosis (M) Present
[2020-06-30] MEDS: ATORVASTATIN 20 MG TAB PO SCH (22:07)
[2020-06-30] MEDS: ALPRAZolam 0.5 MG TAB PO PRN (22:20)
--- NOTE | 2020-06-30 23:19 | P.CNPUL ---
History of Present Illness Consult date: 06/30/20 Reason for consult: dyspnea, pneumonia Chief complaint: Patient found to have a elevated sugar as well as generalized weakness History of present illness: This is a pleasant 79-year-old male who was diagnosed as GI lymphoma has been getting chemotherapy also has significant history of coronary artery disease dyslipidemia patient came into the hospital with the his daughter due to generalized weakness has been progressive for the last 3 days, patient has been getting chemotherapy, lately patient is having low blood pressure tiredness fatigue anxiety and apprehension, blood pressure in the ER noted to be 97/60, labs were significant for severe pancytopenia with neutropenia white cell count is only 200 hemoglobin 7.2 and platelet count of 26, patient noted to be on very high-dose prednisone of 120 mg his covert test is negative, patient chest x-ray is positive for bilateral small pleural effusion and right lower lobe pneumonia and stable right central venous catheter Review of Systems All systems: negative Past Medical History Past Medical History: Coronary Artery Disease (CAD), Cancer, Diabetes Mellitus, Eye Disorder, Hyperlipidemia, Hypertension Additional Past Medical History / Comment(s): TONSIL CANCER, SKIN CA, TOE NAIL INFECTION. lYMPHOMA History of Any Multi-Drug Resistant Organisms: None Reported Past Surgical History: Tonsillectomy Additional Past Surgical History / Comment(s): EYE SURGERY Past Anesthesia/Blood Transfusion Reactions: No Reported Reaction Past Psychological History: No Psychological Hx Reported Smoking Status: Former smoker Past Alcohol Use History: None Reported Past Drug Use History: None Reported - Past Family History Mother Family Medical History: Diabetes Mellitus Father Family Medical History: Cancer Medications and Allergies Home Medications Medication Instructions Recorded Confirmed Type Aspirin EC [Ecotrin Low Dose] 81 mg PO DAILY 04/20/16 06/29/20 History Furosemide [Lasix] 40 mg PO DAILY@1200 04/20/16 06/29/20 History Pioglitazone [Actos] 30 mg PO DAILY 04/20/16 06/29/20 History Simvastatin [Zocor] 40 mg PO HS 04/20/16 06/29/20 History Lidocaine-Prilocaine Cream [Emla 1 applic TOPICAL DAILY PRN 06/29/20 06/29/20 History Cream 2.5%/2.5%] Matulane 50mg 100 mg PO DIRECTED 06/29/20 06/29/20 History Pantoprazole Sodium 40 mg PO DAILY PRN 06/29/20 06/29/20 History Prochlorperazine [Compazine] 10 mg PO Q6H PRN 06/29/20 06/29/20 History dronabinoL [Dronabinol] 5 mg PO BID 06/29/20 06/29/20 History glipiZIDE XL [Glucotrol Xl] 10 mg PO DAILY 06/29/20 06/29/20 History metFORMIN HCL 1,000 mg PO DAILY 06/29/20 06/29/20 History predniSONE [Deltasone] 120 mg PO DIRECTED 06/29/20 06/29/20 History sitaGLIPtin [Januvia] 50 mg PO DAILY 06/29/20 06/29/20 History Allergies Allergy/AdvReac Type Severity Reaction Status Date / Time No Known Allergies Allergy Verified 06/29/20 17:52 Physical Exam Vitals: Vital Signs Temp Pulse Resp BP Pulse Ox 06/30/20 19:32 98.0 F 109 H 14 96/62 99 06/30/20 12:01 98.5 F 100 18 93/61 99 06/30/20 03:57 98.5 F 104 H 20 97/59 93 L Intake and Output 06/30/20 06/30/20 07/01/20 14:59 22:59 06:59 Intake Total 345 Balance 345 Intake: Intake, IV Titration 345 Amount Sodium Chloride 0.9% 1, 120 000 ml @ 120 mls/hr IV . Q8H20M [facility] Rx#:[id number] Sodium Chloride 0.9% 1, 225 000 ml @ 75 mls/hr IV . [id number] [facility] Rx#:[id number] Other: Voiding Method Urinal Diaper - Constitutional General appearance: average body habitus, cooperative, no acute distress - EENT Eyes: EOMI, PERRLA, normal appearance ENT: hearing grossly normal, normal oropharynx, no pharyngeal erythema, no thrush, no tonsillar swelling - Respiratory Respiratory: bilateral: CTA, negative: diminished, dullness, rales, rhonchi, wheezing - Cardiovascular Rhythm: regular Heart sounds: normal: S1, S2 leg Peripheral Edema: bilateral: 1+ - Gastrointestinal General gastrointestinal: decreased bowel sounds, no distended, no hepatomegaly, normal bowel sounds, no organomegaly, no rigid, soft, no tenderness - Integumentary Integumentary: pale, rash - Neurologic Neurologic: CNII-XII intact - Musculoskeletal Musculoskeletal: generalized weakness - Psychiatric Psychiatric: A&O x's 3, appropriate affect, intact judgment & insight Results - Laboratory Findings CBC and BMP: 06/30/20 17:20 06/29/20 16:49 Abnormal lab findings: Abnormal Labs 06/29/20 06/29/20 06/29/20 16:49 16:49 16:49 WBC 0.2 L* RBC 2.42 L Hgb 7.2 L Hct 21.7 L RDW 16.8 H Plt Count 26 L VBG pH VBG pCO2 Sodium 130 L Chloride 97 L BUN 42 H Glucose 283 H POC Glucose (mg/dL) Plasma Lactic Acid Anthony 2.6 H* Calcium 8.3 L Total Bilirubin 1.7 H Total Protein 5.1 L Albumin 3.0 L Crossmatch 06/29/20 06/29/20 06/30/20 16:49 21:52 07:22 WBC RBC Hgb Hct RDW Plt Count VBG pH 7.47 H VBG pCO2 34 L Sodium Chloride BUN Glucose POC Glucose (mg/dL) 261 H 261 H Plasma Lactic Acid Anthony Calcium Total Bilirubin Total Protein Albumin Crossmatch 06/30/20 06/30/20 06/30/20 11:33 17:20 17:29 WBC 0.5 L* RBC 2.54 L Hgb 7.7 L Hct 23.4 L RDW 17.1 H Plt Count 31 L VBG pH VBG pCO2 Sodium Chloride BUN Glucose POC Glucose (mg/dL) 272 H Plasma Lactic Acid Anthony Calcium Total Bilirubin Total Protein Albumin Crossmatch See Detail 06/30/20 06/30/20 17:30 20:48 WBC RBC Hgb Hct RDW Plt Count VBG pH VBG pCO2 Sodium Chloride BUN Glucose POC Glucose (mg/dL) 263 H 283 H Plasma Lactic Acid Anthony Calcium Total Bilirubin Total Protein Albumin Crossmatch - Diagnostic Findings Chest x-ray: report reviewed, image reviewed (Right lower lobe infiltrate consistent with pneumonia) Assessment and Plan Assessment: Right lower lobe pneumonia Severe pancytopenia Leukopenia Anemia Thrombocytopenia GI lymphoma Plan: Gentle rehydration Roth cultures urine culture and blood culture prior to initiating antibiotics Broad-spectrum antibiotics with vancomycin pharmacy to dose and cephapime 1 g every 12 Further plan of care as per clinical response of the patient Time with Patient: Greater than 30
[2020-06-30] MEDS ORDERED: VANCOMYCIN IV PER PHARMACY 1 EACH MISC MISCELLANE PRN (23:34)
[2020-07-01] MEDS ORDERED: VANCOMYCIN 2,000 MG in SODIUM CHLORIDE 0.9% 500 ML 500 ML IVPB ONE (01:00)
[2020-07-01 01:17] LABS: Amorphous Sediment,Urine Occasional /hpf; Appearance,Urine Cloudy (Clear); Bacteria,Urine Occasional /hpf; Bilirubin,Urine Negative (Negative); Blood,Urine Negative (Negative); Color,Urine Yellow; Glucose,Urine (UA) 1+ (Negative); Hyaline Casts,Urine 116 /lpf (0-2); Ketones,Urine Negative (Negative); Leukocyte Esterase,Urine Negative (Negative); Mucus,Urine Few /hpf; Nitrite,Urine Negative (Negative); Protein,Urine Trace (Negative); Specific Gravity,Urine 1.016 (1.001-1.035); Squamous Epithelial Cell,Urine <1 /hpf (0-4); WBC,Urine 1 /hpf (0-5)
[2020-07-01] MEDS: ACETAMINOPHEN TAB 325 MG TAB PO PRN (02:24)
[2020-07-01 03:14] LABS: ALT 44 U/L (4-49); AST 40 U/L (17-59); African American GFR (CKD) 65 (>60 ml/min/1.73 sqM); Albumin 2.5 g/dL (3.5-5.0); Albumin/Globulin Ratio 1.3; Alkaline Phosphatase 72 U/L (38-126); Anion Gap 6 mmol/L; Blood Urea Nitrogen 47 mg/dL (9-20); Calcium 7.9 mg/dL (8.4-10.2); Carbon Dioxide 23 mmol/L (22-30); Chloride 99 mmol/L (98-107); Glucose 194 mg/dL (74-99); Non-African American GFR(CKD) 56 (>60 ml/min/1.73 sqM); Potassium 4.2 mmol/L (3.5-5.1); Sodium 128 mmol/L (137-145); Total Bilirubin 1.5 mg/dL (0.2-1.3); Total Protein 4.5 g/dL (6.3-8.2)
[2020-07-01 03:26] LABS: Anisocytosis Slight; HCT 21.1 % (39.0-53.0); HGB 7.2 gm/dL (13.0-17.5); MCH 31.1 pg (25.0-35.0); MCV 91.6 fL (80.0-100.0); Mean Platelet Volume 11.2; RBC 2.31 m/uL (4.30-5.90); RDW 17.6 % (11.5-15.5)
[2020-07-01 03:32] LABS: Platelet Count 29 k/uL (150-450); WBC 0.7 k/uL (3.8-10.6)
[2020-07-01 04:12] LABS: Ovalocytes Present; Polychromasia Present
[2020-07-01] MEDS ORDERED: Magnesium Replacement Protocol 1 EACH MISC MISCELLANE PRN (04:22)
[2020-07-01] MEDS: MAGNESIUM SULFATE-D5W PMX 1 GM in DEXTROSE/WATER 1 100ML.BAG IVPB SCH ×2 (04:38→05:36)
[2020-07-01 07:03] LABS: Glucose,Whole Blood 287 mg/dL (75-99)
[2020-07-01] MEDS: INSULIN ASPART (NovoLOG) 100 UNIT/ML VIAL SQ SCH ×4 (08:17→21:03)
[2020-07-01] MEDS: ASPIRIN 81 MG PO SCH (08:18)
[2020-07-01] MEDS: NYSTATIN 100,000UNIT/GM CREAM 30 GM TUBE TOPICAL SCH ×2 (08:18→21:03)
[2020-07-01] MEDS: PIOGLITAZONE 30 MG TAB PO SCH (08:18)
[2020-07-01] MEDS: metFORMIN 500 MG TAB PO SCH (08:18)
[2020-07-01] MEDS: PANTOPRAZOLE 40 MG/10 ML VIAL IV SCH (08:18)
[2020-07-01] MEDS: LINAGLIPTIN 5 MG TABLET PO SCH (08:18)
[2020-07-01] MEDS: CEFEPIME 1 GM in SODIUM CHLORIDE 0.9% 50 ML IVPB SCH ×2 (08:39→21:03)
[2020-07-01] MEDS ORDERED: CEFEPIME 1 GM VIAL IVPB SCH (09:00)
--- NOTE | 2020-07-01 10:20 | P.CRDCN ---
History of Present Illness History of present illness: HISTORY OF PRESENTING ILLNESS This is a pleasant 79-year-old male. He has a history of hypertension, diabetes mellitus type 2, hyperlipidemia, questionable coronary artery disease per patie nt, mild lower extremity edema and lymphoma. He had prior history of lymphoma proximally years ago however has had recurrence and has been undergoing chemotherapy, last dose approximate 4 days ago. Patient has noticed increased lethargy especially last few days with fatigue. He was found to have pancytopenia with white blood cell count 0.7 today, hemoglobin 7.2, platelets 199. He denies any hematochezia or melena. Denies any fevers or chills. He was also noted to have a low sodium of 128, BUN 47, creatinine 1.2. He does have frequent lower extremity edema and is noted to have 1+ lower extremity edema currently. He admits he has seen bank worker in the past however denies any history of coronary artery disease, stenting in the past. Patient is unsure if he is followed up in the office recently. Cardiology was consult that secondary to wide complex tachycardia. Patient had a 6 beat run of nonsustained ventricular tachycardia. He also had a 15 second wide-complex tachycardia however there is no change in axis and appeared to be his baseline left bundle-branch block with SVT at approximately 170 bpm at 1:00 this morning. Patient denies any symptoms of feeling lightheaded or dizzy. He denies any recent syncopal or near syncopal episodes. He denies any chest pain or pressure. EKG was repeated which shows normal sinus rhythm, left bundle branch block. REVIEW OF SYSTEMS At the time of my exam: CONSTITUTIONAL: Denies fever or chills. CARDIOVASCULAR: Denies chest pain, shortness of breath, orthopnea, PND or palpitations. +mild LE edema RESPIRATORY: Denies cough. GASTROINTESTINAL: Denies abdominal pain, diarrhea, constipation, nausea or vomiting. MUSCULOSKELETAL: Denies myalgias. NEUROLOGIC: Denies numbness, tingling or weakness. ENDOCRINE: Denies fatigue, weight change, polydipsia or polyurina. GENITOURINARY: Denies burning, hematuria or urgency with micturation. HEMATOLOGIC: Denies history of anemia or bleeding. PHYSICAL EXAMINATION Vital signs reviewed. CONSTITUTIONAL: No apparent distress, chronically ill appearing, pale HEENT: Head is normocephalic. Pupils are equal, round. Sclerae anicteric. Mucous membranes of the mouth are moist. No JVD. No carotid bruit. CHEST EXAMINATION: Lungs are clear to auscultation. No chest wall tenderness is noted on palpation or with deep breathing. HEART EXAMINATION: Regular rate and rhythm. S1, S2 heard. No murmurs, gallops or rub. ABDOMEN: Soft, nontender. Positive bowel sounds. EXTREMITIES: 2+ peripheral pulses, 1+ lower extremity edema, no calf tenderness. NEUROLOGIC EXAMINATION: Patient is awake, alert and oriented x3. ASSESSMENT 1. 6 beat run of nonsustained ventricular tachycardia 2. 15 second SVT with baseline left bundle branch block at approximately 170 bpm, asymptomatic 3. Diabetes mellitus type 2 4. Hypertension 5. Hyperlipidemia 6. Reported history of coronary artery disease, no stenting per patient 7. Mild 1+ lower extremity edema, patient states chronic, may be related to c hronic venous insufficiency 8. Pancytopenia related to chemotherapy 9. Lymphoma 10. Increased BUN, creatinine, dehydration PLAN Patient with asymptomatic episodes of SVT as well as 6 beat run of nonsustained ventricular tachycardia. Patient denies any current angina-type symptoms. Patient's pain complaints are fatigue related to his pancytopenia, chemotherapy. We will check a 2-D echo. Ideally beta demetrio however blood pressures are borderline. Continue telemetry. Replace electrolytes as needed. Further recommendations follow. Past Medical History Past Medical History: Coronary Artery Disease (CAD), Cancer, Diabetes Mellitus, Eye Disorder, Hyperlipidemia, Hypertension Additional Past Medical History / Comment(s): TONSIL CANCER, SKIN CA, TOE NAIL INFECTION. lYMPHOMA History of Any Multi-Drug Resistant Organisms: None Reported Past Surgical History: Tonsillectomy Additional Past Surgical History / Comment(s): EYE SURGERY Past Anesthesia/Blood Transfusion Reactions: No Reported Reaction Past Psychological History: No Psychological Hx Reported Smoking Status: Former smoker Past Alcohol Use History: None Reported Past Drug Use History: None Reported - Past Family History Mother Family Medical History: Diabetes Mellitus Father Family Medical History: Cancer Medications and Allergies Home Medications Medication Instructions Recorded Confirmed Type Aspirin EC [Ecotrin Low Dose] 81 mg PO DAILY 04/20/16 06/29/20 History Furosemide [Lasix] 40 mg PO DAILY@1200 04/20/16 06/29/20 History Pioglitazone [Actos] 30 mg PO DAILY 04/20/16 06/29/20 History Simvastatin [Zocor] 40 mg PO HS 04/20/16 06/29/20 History Lidocaine-Prilocaine Cream [Emla 1 applic TOPICAL DAILY PRN 06/29/20 06/29/20 History Cream 2.5%/2.5%] Matulane 50mg 100 mg PO DIRECTED 06/29/20 06/29/20 History Pantoprazole Sodium 40 mg PO DAILY PRN 06/29/20 06/29/20 History Prochlorperazine [Compazine] 10 mg PO Q6H PRN 06/29/20 06/29/20 History dronabinoL [Dronabinol] 5 mg PO BID 06/29/20 06/29/20 History glipiZIDE XL [Glucotrol Xl] 10 mg PO DAILY 06/29/20 06/29/20 History metFORMIN HCL 1,000 mg PO DAILY 06/29/20 06/29/20 History predniSONE [Deltasone] 120 mg PO DIRECTED 06/29/20 06/29/20 History sitaGLIPtin [Januvia] 50 mg PO DAILY 06/29/20 06/29/20 History Allergies Allergy/AdvReac Type Severity Reaction Status Date / Time No Known Allergies Allergy Verified 06/29/20 17:52 Physical Exam Vitals: Vital Signs Temp Pulse Pulse Resp BP Pulse Ox 07/01/20 08:53 99 07/01/20 03:29 99.2 F 105 H 18 94/53 97 06/30/20 20:10 109 H 14 06/30/20 19:32 98.0 F 109 H 14 96/62 99 06/30/20 12:01 98.5 F 100 18 93/61 99 Intake and Output 06/30/20 07/01/20 07/01/20 22:59 06:59 14:59 Intake Total 345 900 Output Total 350 Balance 345 550 Intake: Intake, IV Titration 345 700 Amount Magnesium Sulfate-D5w Pmx 200 1 gm In Dextrose/Water 1 100ml.bag @ 100 mls/hr IVPB Q1H [facility] Rx#: [id number] Sodium Chloride 0.9% 1, 120 000 ml @ 120 mls/hr IV . Q8H20M [facility] Rx#:[id number] Sodium Chloride 0.9% 1, 225 000 ml @ 75 mls/hr IV . [id number] [facility] Rx#:[id number] Vancomycin 2,000 mg In 500 Sodium Chloride 0.9% 500 ml 500 ml @ 167 mls/hr IVPB Q16H [facility] Rx#: [id number] Oral 200 Output: Urine 350 Straight 350 Other: Voiding Method Urinal Diaper Results 07/01/20 02:41 07/01/20 02:41 Cardiac Enzymes 07/01/20 Range/Units 02:41 AST 40 (17-59) U/L CBC 06/30/20 07/01/20 Range/Units 17:20 02:41 WBC 0.5 L* 0.7 L* (3.8-10.6) k/uL RBC 2.54 L 2.31 L (4.30-5.90) m/uL Hgb 7.7 L 7.2 L (13.0-17.5) gm/dL Hct 23.4 L 21.1 L (39.0-53.0) % Plt Count 31 L 29 L (150-450) k/uL Comprehensive Metabolic Panel 07/01/20 Range/Units 02:41 Sodium 128 L (137-145) mmol/L Potassium 4.2 (3.5-5.1) mmol/L Chloride 99 (98-107) mmol/L Carbon Dioxide 23 (22-30) mmol/L BUN 47 H (9-20) mg/dL Creatinine 1.23 (0.66-1.25) mg/dL Glucose 194 H (74-99) mg/dL Calcium 7.9 L (8.4-10.2) mg/dL AST 40 (17-59) U/L ALT 44 (4-49) U/L Alkaline Phosphatase 72 (38-126) U/L Total Protein 4.5 L (6.3-8.2) g/dL Albumin 2.5 L (3.5-5.0) g/dL Current Medications Generic Name Dose Route Start Last Admin Trade Name Freq PRN Reason Stop Dose Admin Acetaminophen 650 mg 06/29/20 19:04 07/01/20 02:24 Acetaminophen Tab 325 Mg Tab PO 650 mg Q6HR PRN Administration Mild Pain or Fever > 100.5 Alprazolam 0.5 mg 06/30/20 22:11 06/30/20 22:20 Alprazolam 0.5 Mg Tab PO 0.5 mg TID PRN Administration Anxiety Aspirin 81 mg 06/30/20 09:00 07/01/20 08:18 Aspirin 81 Mg PO 81 mg DAILY [facility] Administration Atorvastatin Calcium 20 mg 06/29/20 23:15 06/30/20 22:07 Atorvastatin 20 Mg Tab PO 20 mg HS [facility] Administration Dronabinol 5 mg 06/30/20 09:00 07/01/20 08:18 Dronabinol 2.5 Mg Cap PO 5 mg BID [facility] Administration Cefepime HCl 1 gm/ Sodium 50 mls @ 12.5 mls/hr 07/01/20 09:00 07/01/20 08:39 Chloride IVPB 12.5 mls/hr Q12HR [facility] Administration Vancomycin HCl 2,000 mg/ 500 mls @ 167 mls/hr 07/01/20 17:00 Sodium Chloride IVPB Q16H [facility] Insulin Aspart 0 unit 06/29/20 23:07 07/01/20 08:17 Insulin Aspart (Novolog) 100 Unit/Ml Vial SQ 5 unit ACHS [facility] Administration Protocol Insulin Detemir 10 unit 07/01/20 21:00 Insulin Detemir (Levemir) 100 Unit/Ml Syr SQ HS [facility] Linagliptin 5 mg 06/30/20 09:00 07/01/20 08:18 Linagliptin 5 Mg Tablet PO 5 mg DAILY [facility] Administration Magnesium Oxide 400 mg 07/02/20 09:00 Magnesium Oxide 400 Mg Tab PO DAILY [facility] Metformin HCl 1,000 mg 06/30/20 09:00 07/01/20 08:18 Metformin 500 Mg Tab PO 1,000 mg DAILY [facility] Administration Midodrine 10 mg 07/01/20 12:30 Midodrine 5 Mg Tab PO AC-TID [facility] Miscellaneous Information 1 each 07/01/20 04:22 Magnesium Replacement Protocol 1 Each Misc MISCELLANE DAILY PRN Per Protocol Protocol Naloxone HCl 0.2 mg 06/29/20 19:04 Naloxone 0.4 Mg/Ml 1 Ml Vial IV Q2M PRN Opioid Reversal Nystatin 1 applic 06/30/20 09:00 07/01/20 08:18 Nystatin 100,000unit/Gm Cream 30 Gm Tube TOPICAL 1 applic BID [facility] Administration Ondansetron HCl 4 mg 06/29/20 19:04 Ondansetron 4 Mg/2 Ml Vial IVP Q8HR PRN Nausea And Vomiting Pantoprazole Sodium 40 mg 06/30/20 09:00 07/01/20 08:18 Pantoprazole 40 Mg/10 Ml Vial IV 40 mg DAILY [facility] Administration Intake and Output 06/30/20 07/01/20 07/01/20 22:59 06:59 14:59 Intake Total 345 900 Output Total 350 Balance 345 550 Intake: Intake, IV Titration 345 700 Amount Magnesium Sulfate-D5w Pmx 200 1 gm In Dextrose/Water 1 100ml.bag @ 100 mls/hr IVPB Q1H [facility] Rx#: [id number] Sodium Chloride 0.9% 1, 120 000 ml @ 120 mls/hr IV . Q8H20M [facility] Rx#:[id number] Sodium Chloride 0.9% 1, 225 000 ml @ 75 mls/hr IV . [id number] [facility] Rx#:[id number] Vancomycin 2,000 mg In 500 Sodium Chloride 0.9% 500 ml 500 ml @ 167 mls/hr IVPB Q16H [facility] Rx#: [id number] Oral 200 Output: Urine 350 Straight 350 Other: Voiding Method Urinal Diaper 07/01/20 02:41 07/01/20 02:41
--- NOTE | 2020-07-01 11:35 | P.PN ---
Subjective This is a 79-year-old male with a past medical history of lymphoma, coronary artery disease, diabetes, dyslipidemia. Patient presented to the emergency room for generalized weakness. Per patient he has last chemotherapy 3 days ago for his lymphoma, he follows with Dr. Jerry. Patient reports loss of appetite, diarrhea but seems to be chronic, denies any nausea or vomiting, or abdominal pain. Upon arrival to the emergency department, blood pressure a little on the lower side on 97/61 he is afebrile 98.4, heart rate of 99, he is 97% on room air . Laboratory values showed WBC of 0.2, hemoglobin of 7.2, platelet count of 26 sodium 1:30, BUN 42, creatinine 1.06. COVID testing was negative. Patient admitted to the hospital with oncology on consult. Patient noted to have +1 edema IV fluids turned down to 75 miles per hour. 07/01: Patient evaluated this morning, patient is resting comfortably in bed. Last night patient was noted to have a run of nonsustained ventricular tachycardia. He had a repeat EKG which showed normal sinus rhythm with left bundle branch block. Cardiology on consult, will obtain an echocardiogram. Stat magnesium resulted back at 1.8, replacement has been given. Actos has also been discontinued for his arrhythmia and also concern for congestive heart failure, Lantus 10 units ordered. Repeat chest x-ray showed congestive heart failure with small pleural effusions with right lower lobe pneumonia. Patient was ordered 1 unit of packed red blood cells, unable to complete due to the run of V. tach and concern for congestive heart failure. Patient continues on vancomycin and cefepime. Cultures are still pending. Patient noted to retain urine, straight cathed last night, will obtain postvoid residual and add Flomax. Blood pressure has been running on the lower side, midodrine 10 mg 3 times a day has been ordered. Laboratory values WBC 0.7, hemoglobin 7.2, platelet 29, sodium 128, BUN 47, creatinine 1.23, repeat magnesium 2.2 Objective - Vital Signs Vital signs: Vital Signs Temp 99.2 F 07/01/20 03:29 Pulse 105 H 07/01/20 03:29 Resp 18 07/01/20 03:29 BP 94/53 07/01/20 03:29 Pulse Ox 99 07/01/20 08:53 Intake & Output 06/30/20 07/01/2021 18:59 06:59 18:59 Intake Total 345 900 Output Total 350 Balance 345 550 Intake: Intake, IV Titration 345 700 Amount Magnesium Sulfate-D5w Pmx 200 1 gm In Dextrose/Water 1 100ml.bag @ 100 mls/hr IVPB Q[facility]H [facility] Rx#: [id number] Sodium Chloride 0.9% 1, 120 000 ml @ 120 mls/hr IV . Q8H20M [facility] Rx#:[id number] Sodium Chloride 0.9% 1, 225 000 ml @ 75 mls/hr IV . [id number] [facility] Rx#:[id number] Vancomycin 2,000 mg In 500 Sodium Chloride 0.9% 500 ml 500 ml @ 167 mls/hr IVPB Q16H [facility] Rx#: [id number] Oral 200 Output: Urine 350 Straight 350 Other: Voiding Method Urinal Urinal Urinal Diaper Diaper Diaper - Exam - Constitutional General appearance: average body habitus, cooperative, no acute distress - EENT Eyes: EOMI, PERRLA, normal appearance ENT: hearing grossly normal, normal oropharynx, no pharyngeal erythema - Respiratory Respiratory: bilateral: Rhonchi at the bases - Cardiovascular Rhythm: regular Heart sounds: normal: S1, S2 leg Peripheral Edema: bilateral: 1+ - Gastrointestinal General gastrointestinal: decreased bowel sounds, no distended, no hepatomegaly, normal bowel sounds, no organomegaly, no rigid, soft, no tenderness - Integumentary Integumentary: pale, rash - Neurologic Neurologic: CNII-XII intact - Musculoskeletal Musculoskeletal: generalized weakness - Psychiatric Psychiatric: A&O x's 3, appropriate affect, intact judgment & insight - Labs CBC & Chem 7: 07/01/20 02:41 07/01/20 02:41 Labs: Abnormal Lab Results - Last 24 Hours (Table) 06/30/20 06/30/20 06/30/20 Range/Units 11:33 17:20 17:29 WBC 0.5 L* (3.8-10.6) k/uL RBC 2.54 L (4.30-5.90) m/uL Hgb 7.7 L (13.0-17.5) gm/dL Hct 23.4 L (39.0-53.0) % RDW 17.1 H (11.5-15.5) % Plt Count 31 L (150-450) k/uL Sodium (137-145) mmol/L BUN (9-20) mg/dL Glucose (74-99) mg/dL POC Glucose (mg/dL) 272 H (75-99) mg/dL Calcium (8.4-10.2) mg/dL Total Bilirubin (0.2-1.3) mg/dL Total Protein (6.3-8.2) g/dL Albumin (3.5-5.0) g/dL Urine Protein (Negative) Urine Glucose (UA) (Negative) Amorphous Sediment (None) /hpf Urine Bacteria (None) /hpf Hyaline Casts (0-2) /lpf Urine Mucus (None) /hpf Crossmatch See Detail 06/30/20 06/30/20 07/01/20 Range/Units 17:30 20:48 00:45 WBC (3.8-10.6) k/uL RBC (4.30-5.90) m/uL Hgb (13.0-17.5) gm/dL Hct (39.0-53.0) % RDW (11.5-15.5) % Plt Count (150-450) k/uL Sodium (137-145) mmol/L BUN (9-20) mg/dL Glucose (74-99) mg/dL POC Glucose (mg/dL) 263 H 283 H (75-99) mg/dL Calcium (8.4-10.2) mg/dL Total Bilirubin (0.2-1.3) mg/dL Total Protein (6.3-8.2) g/dL Albumin (3.5-5.0) g/dL Urine Protein Trace H (Negative) Urine Glucose (UA) 1+ H (Negative) Amorphous Sediment Occasional H (None) /hpf Urine Bacteria Occasional H (None) /hpf Hyaline Casts 116 H (0-2) /lpf Urine Mucus Few H (None) /hpf Crossmatch 07/01/20 07/01/20 07/01/20 Range/Units 02:41 02:41 07:00 WBC 0.7 L* (3.8-10.6) k/uL RBC 2.31 L (4.30-5.90) m/uL Hgb 7.2 L (13.0-17.5) gm/dL Hct 21.1 L (39.0-53.0) % RDW 17.6 H (11.5-15.5) % Plt Count 29 L (150-450) k/uL Sodium 128 L (137-145) mmol/L BUN 47 H (9-20) mg/dL Glucose 194 H (74-99) mg/dL POC Glucose (mg/dL) 287 H (75-99) mg/dL Calcium 7.9 L (8.4-10.2) mg/dL Total Bilirubin 1.5 H (0.2-1.3) mg/dL Total Protein 4.5 L (6.3-8.2) g/dL Albumin 2.5 L (3.5-5.0) g/dL Urine Protein (Negative) Urine Glucose (UA) (Negative) Amorphous Sediment (None) /hpf Urine Bacteria (None) /hpf Hyaline Casts (0-2) /lpf Urine Mucus (None) /hpf Crossmatch Assessment and Plan Plan: 1. Generalized weakness and dehydration secondary to chemotherapy. IV hydration discontinued due to fluid overload, Zofran as needed along with Marinol 5 mg twice a day, Ensure 2. History of lymphoma. Oncology on consult. 3. Pancytopenia with leukopenia secondary from chemotherapy. Continue to monitor CBC 4. Diabetes mellitus type II with hyperglycemia. Will continue with Accu-Cheks with NovoLog sliding scale, continue Tradjenta 5 mg, metformin 1000 mg daily, Actos discontinued, and Lantus 10 units ordered 5. History of coronary artery disease. Continue Lipitor 20 mg daily, blood pressure medication on hold due to hypotension 6. Hypotension secondary to dehydration. Home blood pressure medication currently on hold, Midodrine 10 mg 3 times a day 7. Hyperlipidemia. On Lipitor 20 mg daily 8. Laura infection to bilateral groin. On nystatin cream twice a day 9. Urinary retention. Will obtain post void residual and add Flomax 0.4 mg daily 10. Nonsustained ventricular tachycardia. Cardiology on consult. will obtain 2-D echo 11. Hypomagnesemia. Replacement given, repeat magnesium level tomorrow 12. right lower lobe pneumonia. On cefepime and vancomycin, cultures pending 13. Anemia. 1 unit of packed red blood cells was ordered, currently on hold due to fluid overload 14. DVT prophylaxis. Pneumatic compression stockings 15. GI prophylaxis pantoprazole The above impression and plan of care have been discussed and directed by signing physician. Arely Tinoco nurse practitioner acting as scribe for signing physician.
[2020-07-01 12:17] LABS: Glucose,Whole Blood 238 mg/dL (75-99)
[2020-07-01] MEDS: MIDODRINE 5 MG TAB PO SCH ×2 (12:54→17:24)
--- NOTE | 2020-07-01 14:58 | P.PN ---
Subjective Progress Note Date: 07/01/20 Principal diagnosis: Right lower lobe pneumonia Severe pancytopenia Leukopenia Anemia Thrombocytopenia GI lymphoma 07/01/2020, patient is being eval by cardiovascular services due to asymptomatic run of nonsustained ventricular tachycardia also intermittent SVT, patient rem ains afebrile hemodynamic status is marginal remains on broad-spectrum antibiotics, cell count is slightly up to 700, hemoglobin is 7.2, sodium 128, BUN/creatinine 47/1.23, This is a pleasant 79-year-old male who was diagnosed as GI lymphoma has been getting chemotherapy also has significant history of coronary artery disease dyslipidemia patient came into the hospital with the his daughter due to generalized weakness has been progressive for the last 3 days, patient has been getting chemotherapy, lately patient is having low blood pressure tiredness fatigue anxiety and apprehension, blood pressure in the ER noted to be 97/60, labs were significant for severe pancytopenia with neutropenia white cell count is only 200 hemoglobin 7.2 and platelet count of 26, patient noted to be on very high-dose prednisone of 120 mg his covert test is negative, patient chest x-ray is positive for bilateral small pleural effusion and right lower lobe pneumonia and stable right central venous catheter Objective - Vital Signs Vital signs: Vital Signs Temp 98.2 F 07/01/20 12:32 Pulse 98 07/01/20 12:32 Resp 16 07/01/20 12:32 BP 92/60 07/01/20 12:32 Pulse Ox 100 07/01/20 12:32 Intake & Output 06/30/20 07/01/20 07/01/20 18:59 06:59 18:59 Intake Total 345 900 Output Total 350 Balance 345 550 Intake: Intake, IV Titration 345 700 Amount Magnesium Sulfate-D5w Pmx 200 1 gm In Dextrose/Water 1 100ml.bag @ 100 mls/hr IVPB Q1H [facility] Rx#: [id number] Sodium Chloride 0.9% 1, 120 000 ml @ 120 mls/hr IV . Q8H20M [facility] Rx#:[id number] Sodium Chloride 0.9% 1, 225 000 ml @ 75 mls/hr IV . [id number] [facility] Rx#:[id number] Vancomycin 2,000 mg In 500 Sodium Chloride 0.9% 500 ml 500 ml @ 167 mls/hr IVPB Q16H [facility] Rx#: [id number] Oral 200 Output: Urine 350 Straight 350 Other: Voiding Method Urinal Urinal Urinal Diaper Diaper Diaper - Exam - Constitutional General appearance: average body habitus, cooperative, no acute distress - EENT Eyes: EOMI, PERRLA, normal appearance ENT: hearing grossly normal, normal oropharynx, no pharyngeal erythema, no thrush, no tonsillar swelling - Respiratory Respiratory: bilateral: CTA, negative: diminished, dullness, rales, rhonchi, wheezing - Cardiovascular Rhythm: regular Heart sounds: normal: S1, S2 leg Peripheral Edema: bilateral: 1+ - Gastrointestinal General gastrointestinal: decreased bowel sounds, no distended, no hepatomegaly, normal bowel sounds, no organomegaly, no rigid, soft, no tenderness - Integumentary Integumentary: pale, rash - Neurologic Neurologic: CNII-XII intact - Musculoskeletal Musculoskeletal: generalized weakness - Psychiatric Psychiatric: A&O x's 3, appropriate affect, intact judgment & insight - Labs CBC & Chem 7: 07/01/20 02:41 07/01/20 02:41 Labs: Abnormal Lab Results - Last 24 Hours (Table) 06/30/20 06/30/20 06/30/20 Range/Units 17:20 17:29 17:30 WBC 0.5 L* (3.8-10.6) k/uL RBC 2.54 L (4.30-5.90) m/uL Hgb 7.7 L (13.0-17.5) gm/dL Hct 23.4 L (39.0-53.0) % RDW 17.1 H (11.5-15.5) % Plt Count 31 L (150-450) k/uL Sodium (137-145) mmol/L BUN (9-20) mg/dL Glucose (74-99) mg/dL POC Glucose (mg/dL) 263 H (75-99) mg/dL Calcium (8.4-10.2) mg/dL Total Bilirubin (0.2-1.3) mg/dL Total Protein (6.3-8.2) g/dL Albumin (3.5-5.0) g/dL Urine Protein (Negative) Urine Glucose (UA) (Negative) Amorphous Sediment (None) /hpf Urine Bacteria (None) /hpf Hyaline Casts (0-2) /lpf Urine Mucus (None) /hpf Crossmatch See Detail 06/30/20 07/01/20 07/01/20 Range/Units 20:48 00:45 02:41 WBC 0.7 L* (3.8-10.6) k/uL RBC 2.31 L (4.30-5.90) m/uL Hgb 7.2 L (13.0-17.5) gm/dL Hct 21.1 L (39.0-53.0) % RDW 17.6 H (11.5-15.5) % Plt Count 29 L (150-450) k/uL Sodium (137-145) mmol/L BUN (9-20) mg/dL Glucose (74-99) mg/dL POC Glucose (mg/dL) 283 H (75-99) mg/dL Calcium (8.4-10.2) mg/dL Total Bilirubin (0.2-1.3) mg/dL Total Protein (6.3-8.2) g/dL Albumin (3.5-5.0) g/dL Urine Protein Trace H (Negative) Urine Glucose (UA) 1+ H (Negative) Amorphous Sediment Occasional H (None) /hpf Urine Bacteria Occasional H (None) /hpf Hyaline Casts 116 H (0-2) /lpf Urine Mucus Few H (None) /hpf Crossmatch 07/01/20 07/01/20 07/01/20 Range/Units 02:41 07:00 12:02 WBC (3.8-10.6) k/uL RBC (4.30-5.90) m/uL Hgb (13.0-17.5) gm/dL Hct (39.0-53.0) % RDW (11.5-15.5) % Plt Count (150-450) k/uL Sodium 128 L (137-145) mmol/L BUN 47 H (9-20) mg/dL Glucose 194 H (74-99) mg/dL POC Glucose (mg/dL) 287 H 238 H (75-99) mg/dL Calcium 7.9 L (8.4-10.2) mg/dL Total Bilirubin 1.5 H (0.2-1.3) mg/dL Total Protein 4.5 L (6.3-8.2) g/dL Albumin 2.5 L (3.5-5.0) g/dL Urine Protein (Negative) Urine Glucose (UA) (Negative) Amorphous Sediment (None) /hpf Urine Bacteria (None) /hpf Hyaline Casts (0-2) /lpf Urine Mucus (None) /hpf Crossmatch Assessment and Plan Assessment: Right lower lobe pneumonia Severe pancytopenia Leukopenia Hyponatremia Intermittent runs of ventricular tachycardia and PSVT Anemia Thrombocytopenia GI lymphoma Plan: Gentle rehydration Follow-up on Roth cultures urine culture and blood culture prior to initiating antibiotics Continue Broad-spectrum antibiotics with vancomycin pharmacy to dose and cephapime 1 g every 12 Further plan of care as per clinical response of the patient Time with Patient: Greater than 30
--- NOTE | 2020-07-01 16:46 | PN ---
PROGRESS NOTE DATE OF SERVICE: July 01, 2020. CHIEF COMPLAINT: Tired. Vick is seen today as a followup. He continues to feel tired, but overall he stated he feels a little better than yesterday. He has no fever or chills. No nausea or vomiting. He reports no melena, hematochezia, hematuria. He has some hard dry cough. CURRENT MEDICATION: Include the following: Tylenol as needed, Xanax 0.5 mg t.i.d., aspirin 81 mg daily, and Lipitor 20 mg daily, cefepime 1 g IV piggyback q.12 hours, Marinol 5 mg b.i.d., NovoLog sliding scale. Levemir 10 units subcu q.h.s., Tradjenta 5 mg daily. Magnesium oxide 400 mg daily. Metformin 1000 mg daily. Midodrine 10 mg t.i.d., Zofran 4 mg IV every 8 hours as needed, Protonix 40 mg twice a day. Flomax 0.5 mg daily. Vancomycin 2 g IV piggyback q.12 hours. PHYSICAL EXAMINATION: He is alert, oriented x3. He appears tired but in no distress. His vital signs are: Temperature 98.2. His temp max was 99.2. Pulse is 98, regular, respirations 16, blood pressure 92/60, the pulse ox was 100% on 3 L. HEENT: Normocephalic, atraumatic. Oral mucosa are dry. NECK: Supple. CHEST: Equal expansion bilaterally. LUNGS: A few crackles at the right base. HEART is regular. ABDOMEN: Soft. No tenderness. EXTREMITIES reveal trace edema. SKIN reveals a few bruises. No ecchymosis or petechiae. LABORATORY DATA: From today WBC of 0.7, hemoglobin 7.2, hematocrit 21.1, platelets are 29. Sodium 128, potassium 4.2, BUN is 47, creatinine 1.23. IMPRESSION: 1. 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 His currently on RCEPP regimen. 2. Pancytopenia with significant neutropenia related to above. He did receive Neulasta in the outpatient setting. 3. Possible right lower lobe pneumonia. 4. Generalized weakness, hypotension and dehydration, likely related to systemic therapy. RECOMMENDATION: 1. Continue gentle IV hydration. 2. Monitor electrolytes. 3. He is hyponatremic. 4. He is currently on broad-spectrum IV antibiotics. 5. Cultures ordered, awaiting results. 6. Due to significant thrombocytopenia, we will hold aspirin for now. 7. Continue supportive transfusion as needed. The above was discussed in details with the patient and his at bedside and I have answered all his questions. BALJIT / MITESH: [id number] /
[2020-07-01 17:14] LABS: Glucose,Whole Blood 194 mg/dL (75-99)
[2020-07-01] MEDS: VANCOMYCIN 2,000 MG in SODIUM CHLORIDE 0.9% 500 ML 500 ML IVPB SCH (17:23)
[2020-07-01] MEDS: ALPRAZolam 0.5 MG TAB PO PRN (17:24)
[2020-07-01 20:29] LABS: Glucose,Whole Blood 189 mg/dL (75-99)
[2020-07-01] MEDS: INSULIN DETEMIR (LEVEMIR) 100 UNIT/ML SYR SQ SCH (21:02)
[2020-07-01] MEDS: ATORVASTATIN 20 MG TAB PO SCH (21:03)
[2020-07-02 04:55] LABS: Glucose,Whole Blood 128 mg/dL (75-99)
[2020-07-02 06:25] LABS: Anisocytosis Slight; Basophils % (A) 0 %; Eosinophils % (A) 1 %; Lymphocytes # (A) 0.1 k/uL (1.0-4.8); Lymphocytes % (A) 7 %; MCH 30.2 pg (25.0-35.0); MCV 91.5 fL (80.0-100.0); Mean Platelet Volume 12.6; Monocytes # (A) 0.1 k/uL (0-1.0); Monocytes % (A) 9 %; Neutrophils # (A) 1.2 k/uL (1.3-7.7); Neutrophils % (A) 81 %; Poikilocytosis Slight; RBC 2.13 m/uL (4.30-5.90); RDW 17.9 % (11.5-15.5)
[2020-07-02 06:26] LABS: WBC 1.4 k/uL (3.8-10.6)
[2020-07-02 06:27] LABS: HGB 6.4 gm/dL (13.0-17.5)
[2020-07-02 06:28] LABS: HCT 19.5 % (39.0-53.0); Platelet Count 35 k/uL (150-450)
[2020-07-02 06:40] LABS: ALT 39 U/L (4-49); AST 22 U/L (17-59); African American GFR (CKD) 73 (>60 ml/min/1.73 sqM); Albumin 2.1 g/dL (3.5-5.0); Albumin/Globulin Ratio 1.1; Alkaline Phosphatase 83 U/L (38-126); Anion Gap 5 mmol/L; Blood Urea Nitrogen 47 mg/dL (9-20); Calcium 7.7 mg/dL (8.4-10.2); Carbon Dioxide 25 mmol/L (22-30); Chloride 100 mmol/L (98-107); Globulin 1.9 g/dL; Glucose 111 mg/dL (74-99); Magnesium 2.1 mg/dL (1.6-2.3); Non-African American GFR(CKD) 63 (>60 ml/min/1.73 sqM); Potassium 3.8 mmol/L (3.5-5.1); Sodium 130 mmol/L (137-145); Total Bilirubin 1.2 mg/dL (0.2-1.3)
[2020-07-02] MEDS ORDERED: FUROSEMIDE 10 MG/ML 2 ML VIAL IV ONE (06:55)
[2020-07-02 06:59] LABS: Band Neutrophils % 48 %; Eosinophils # (M) 0.03 k/uL (0-0.7); Lymphocytes # (M) 0.08 k/uL (1.0-4.8); Metamyelocytes # (M) 0.03 k/uL (0); Metamyelocytes % 2 %; Monocytes # (M) 0.31 k/uL (0-1.0); Neutrophils % (M) 20 %; Nucleated Red Blood Cells 0 /100 WBC (0-0); Total Cells Counted 100
[2020-07-02 07:00] LABS: Anisocytosis (M) Present; Poikilocytosis (M) Present; Polychromasia Present
[2020-07-02 07:15] LABS: Glucose,Whole Blood 141 mg/dL (75-99)
[2020-07-02] MEDS: metFORMIN 500 MG TAB PO SCH (07:33)
[2020-07-02] MEDS: PANTOPRAZOLE 40 MG TABLET PO SCH (07:33)
[2020-07-02] MEDS: INSULIN ASPART (NovoLOG) 100 UNIT/ML VIAL SQ SCH ×4 (07:33→21:19)
[2020-07-02] MEDS: MAGNESIUM OXIDE 400 MG TAB PO SCH (07:33)
[2020-07-02] MEDS: LINAGLIPTIN 5 MG TABLET PO SCH (07:34)
[2020-07-02] MEDS: MIDODRINE 5 MG TAB PO SCH ×3 (07:34→17:49)
[2020-07-02] MEDS: CEFEPIME 1 GM in SODIUM CHLORIDE 0.9% 50 ML IVPB SCH ×2 (07:34→21:26)
[2020-07-02] MEDS: NYSTATIN 100,000UNIT/GM CREAM 30 GM TUBE TOPICAL SCH ×2 (07:42→21:27)
[2020-07-02] MEDS ORDERED: TAMSULOSIN 0.4 MG CAP.ER.24H PO SCH (08:30)
[2020-07-02] MEDS: VANCOMYCIN 2,000 MG in SODIUM CHLORIDE 0.9% 500 ML 500 ML IVPB SCH (08:43)
--- NOTE | 2020-07-02 10:59 | US ---
EXAMINATION TYPE: US venous doppler duplex LE DATE OF EXAM: 07/02/2020 10:30 AM COMPARISON: NONE CLINICAL HISTORY: edema. SIDE PERFORMED: Bilateral TECHNIQUE: The lower extremity deep venous system is examined utilizing real time linear array sonog sophy with graded compression, doppler sonography and color-flow sonography. VESSELS IMAGED: Common Femoral Vein Deep Femoral Vein Greater Saphenous Vein * Femoral Vein Popliteal Vein Small Saphenous Vein * Proximal Calf Veins-not seen/swelling patient position (* superficial vessels) Patient done portable. Patient of large body habitus, in awkward position, difficult to reach patient , unable to augment (technologist reach). Right Leg: Somewhat limited views of popliteal vein due to above limitations and swelling. Appears n egative for DVT. Left Leg: Appears negative for DVT. Grayscale, color doppler, spectral doppler imaging performed of the deep veins of the bilateral lower extremities. IMPRESSION: Suboptimal study without acute DVT clearly identified in either lower extremity.
[2020-07-02 11:36] LABS: ABG Base Excess -0.5 mmol/L; ABG HCO3 25 mmol/L (21-25); ABG Oxygen Saturation 96.6 % (94-97); ABG PCO2 41 mmHg (35-45); ABG PH 7.39 (7.35-7.45); ABG PO2 79 mmHg (83-108); ABG TCO2 26 mmol/L (19-24)
--- NOTE | 2020-07-02 11:36 | P.PN ---
Subjective Progress Note Date: 07/02/20 (Critical care time spent 35 minutes) Principal diagnosis: Right lower lobe pneumonia Severe pancytopenia Leukopenia Anemia Thrombocytopenia GI lymphoma 07/02/2020, patient seen eval examined during the rounds labs reviewed medications reviewed care plan discussed, patient very somnolent but arousable, on 3 L oxygen, hemoglobin is down to 6.4 patient is to get unit of packed RBC, patient is scheduled for duplex ultrasound the lower extremity rule out DVT as they appear and looked more edematous, will order arterial blood gas as well as along with chest x-ray, WBC count is up to 1400, potassium is 3.8, BUN/creatinine 47 and 1.11, bilateral lower extremity negative for DVT, chest x- ray and ABG pending 07/01/2020, patient is being eval by cardiovascular services due to asymptomatic run of nonsustained ventricular tachycardia also intermittent SVT, patient remains afebrile hemodynamic status is marginal remains on broad-spectrum antibiotics, cell count is slightly up to 700, hemoglobin is 7.2, sodium 128, BUN/creatinine 47/1.23, This is a pleasant 79-year-old male who was diagnosed as GI lymphoma has been getting chemotherapy also has significant history of coronary artery disease dyslipidemia patient came into the hospital with the his daughter due to gene ralized weakness has been progressive for the last 3 days, patient has been getting chemotherapy, lately patient is having low blood pressure tiredness fatigue anxiety and apprehension, blood pressure in the ER noted to be 97/60, labs were significant for severe pancytopenia with neutropenia white cell count is only 200 hemoglobin 7.2 and platelet count of 26, patient noted to be on very high-dose prednisone of 120 mg his covert test is negative, patient chest x-ray is positive for bilateral small pleural effusion and right lower lobe pneumonia and stable right central venous catheter Objective - Vital Signs Vital signs: Vital Signs Temp 98.2 F 07/02/20 04:40 Pulse 80 07/02/20 07:44 Resp 20 07/02/20 04:40 BP 99/62 07/02/20 07:44 Pulse Ox 97 07/02/20 07:09 Intake & Output 07/01/20 07/02/20 07/02/20 18:59 06:59 18:59 Intake Total 100 Output Total 620 450 Balance -620 -350 Intake: Oral 100 Output: Urine 300 400 Post Void Residual 320 50 Other: Voiding Method Urinal Urinal Urinal Diaper Diaper Diaper # Voids 1 # Bowel Movements 1 - Labs CBC & Chem 7: 07/02/20 05:25 07/02/20 05:25 Labs: Abnormal Lab Results - Last 24 Hours (Table) 06/30/20 07/01/20 07/01/20 Range/Units 17:29 12:02 17:12 WBC (3.8-10.6) k/uL RBC (4.30-5.90) m/uL Hgb (13.0-17.5) gm/dL Hct (39.0-53.0) % RDW (11.5-15.5) % Plt Count (150-450) k/uL Neutrophils # (1.3-7.7) k/uL Neutrophils # (Manual) (1.3-7.7) k/uL Lymphocytes # (1.0-4.8) k/uL Lymphocytes # (Manual) (1.0-4.8) k/uL Metamyelocytes # (Man) (0) k/uL Sodium (137-145) mmol/L BUN (9-20) mg/dL Glucose (74-99) mg/dL POC Glucose (mg/dL) 238 H 194 H (75-99) mg/dL Calcium (8.4-10.2) mg/dL Total Protein (6.3-8.2) g/dL Albumin (3.5-5.0) g/dL Crossmatch See Detail 07/01/20 07/02/20 07/02/20 Range/Units 20:16 04:54 05:25 WBC (3.8-10.6) k/uL RBC (4.30-5.90) m/uL Hgb (13.0-17.5) gm/dL Hct (39.0-53.0) % RDW (11.5-15.5) % Plt Count (150-450) k/uL Neutrophils # (1.3-7.7) k/uL Neutrophils # (Manual) (1.3-7.7) k/uL Lymphocytes # (1.0-4.8) k/uL Lymphocytes # (Manual) (1.0-4.8) k/uL Metamyelocytes # (Man) (0) k/uL Sodium 130 L (137-145) mmol/L BUN 47 H (9-20) mg/dL Glucose 111 H (74-99) mg/dL POC Glucose (mg/dL) 189 H 128 H (75-99) mg/dL Calcium 7.7 L (8.4-10.2) mg/dL Total Protein 4.0 L (6.3-8.2) g/dL Albumin 2.1 L (3.5-5.0) g/dL Crossmatch 07/02/20 07/02/20 Range/Units 05:25 07:03 WBC 1.4 L* (3.8-10.6) k/uL RBC 2.13 L (4.30-5.90) m/uL Hgb 6.4 L* (13.0-17.5) gm/dL Hct 19.5 L* (39.0-53.0) % RDW 17.9 H (11.5-15.5) % Plt Count 35 L (150-450) k/uL Neutrophils # 1.2 L (1.3-7.7) k/uL Neutrophils # (Manual) 0.90 L (1.3-7.7) k/uL Lymphocytes # 0.1 L (1.0-4.8) k/uL Lymphocytes # (Manual) 0.08 L (1.0-4.8) k/uL Metamyelocytes # (Man) 0.03 H (0) k/uL Sodium (137-145) mmol/L BUN (9-20) mg/dL Glucose (74-99) mg/dL POC Glucose (mg/dL) 141 H (75-99) mg/dL Calcium (8.4-10.2) mg/dL Total Protein (6.3-8.2) g/dL Albumin (3.5-5.0) g/dL Crossmatch Microbiology - Last 24 Hours (Table) 07/01/20 00:05 Blood Culture - Preliminary Blood No Growth after 24 hours 06/30/20 23:54 Blood Culture - Preliminary Blood No Growth after 24 hours 06/30/20 17:29 Blood Culture - Preliminary Blood No Growth after 24 hours 06/30/20 17:29 Blood Culture - Preliminary Blood No Growth after 24 hours Assessment and Plan Assessment: Altered mental status likely multifactorial Right lower lobe pneumonia Severe pancytopenia Leukopenia Hyponatremia Intermittent runs of ventricular tachycardia and PSVT Anemia Thrombocytopenia 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
[2020-07-02] MEDS ORDERED: POTASSIUM CHLORIDE ER 20 MEQ TAB.ER PO STA (11:39)
[2020-07-02 12:21] LABS: Glucose,Whole Blood 108 mg/dL (75-99)
--- NOTE | 2020-07-02 12:40 | ECHOF ---
Referral Reason:r/o CHF MEASUREMENTS -------- HEIGHT: 177.8 cm WEIGHT: 100.7 kg BP: 82/44 RVIDd: 2.5 cm (< 3.3) IVSd: 1.3 cm (0.6 - 1.1) LVIDd: 4.9 cm (3.9 - 5.3) LVPWd: 1.3 cm (0.6 - 1.1) IVSs: 1.6 cm LVIDs: 4.5 cm LVPWs: 1.9 cm LA Diam: 4.3 cm (2.7 - 3.8) LAESV Index (A-L): 25.71 ml/m Ao Diam: 3.0 cm (2.0 - 3.7) AV Cusp: 1.1 cm (1.5 - 2.6) MV EXCURSION: 12.885 mm (> 18.000) MV EF SLOPE: 24 mm/s (70 - 150) EPSS: 1.0 cm MV E Basilio: 1.51 m/s MV DecT: 248 ms MV A Basilio: 1.10 m/s MV E/A Ratio: 1.37 AV maxP.26 mmHg AV meanP.33 mmHg RAP: 15.00 mmHg RVSP: 44.01 mmHg FINDINGS -------- Sinus rhythm. This was a technically difficult study with suboptimal views. The left ventricular size is normal. There is mild concentric left ventricular hypertrophy. Overa ll left ventricular systolic function is severely impaired with, an EF between 20 - 25 %. Global hy pokinesis The right ventricle is normal in size. The left atrium is mildly dilated. The right atrium is normal in size. 5.0mg of Lumason was utilized for enhancement of images Interatrial and interventricular septum intact. There is mild aortic valve sclerosis. There is mild aortic stenosis present. Peak/mean gradient a cross the Aortic Valve is 20.26mmHg / 10.33mmHg. Moderate mitral annular calcification present. [id number] mitral regurgitation is present. Mild tricuspid regurgitation present. There is mild pulmonary hypertension. The right ventricular systolic pressure, as measured by Doppler, is 44.01mmHg. The pulmonic valve was not well visualized. The aortic root size is normal. The inferior vena cava is dilated with poor inspiratory collapse which is consistent with estimated r ight atrial pressure of 15 mmHg. There is no pericardial effusion. CONCLUSIONS -------- 1. This was a technically difficult study with suboptimal views. 2. The left ventricular size is normal. 3. There is mild concentric left ventricular hypertrophy. 4. Overall left ventricular systolic function is severely impaired with, an EF between 20 - 25 %. 5. Global hypokinesis 6. The left atrium is mildly dilated. 7. 5.0mg of Lumason was utilized for enhancement of images 8. There is mild aortic valve sclerosis. 9. There is mild aortic stenosis present. 10. Peak/mean gradient across the Aortic Valve is 20.26mmHg / 10.33mmHg. 11. Moderate mitral annular calcification present. 12. [id number] mitral regurgitation is present. 13. Mild tricuspid regurgitation present. 14. There is mild pulmonary hypertension. 15. The right ventricular systolic pressure, as measured by Doppler, is 44.01mmHg. 16. The inferior vena cava is dilated with poor inspiratory collapse which is consistent with estimat ed right atrial pressure of 15 mmHg. 17. There is no pericardial effusion. TOWER HAND: Erika Russo RDCS
[2020-07-02] MEDS: METOPROLOL TARTRATE 12.5 MG TAB PO SCH (12:44)
--- NOTE | 2020-07-02 13:55 | P.PN ---
Subjective This is a pleasant 79-year-old male. He has a history of hypertension, diabetes mellitus type 2, hyperlipidemia, questionable coronary artery disease per patient, mild lower extremity edema and lymphoma. He had prior history of lymphoma proximally years ago however has had recurrence and has been undergoing chemotherapy, last dose approximate 4 days ago. Patient has noticed increased lethargy especially last few days with fatigue. He was found to have pancytopenia with white blood cell count 0.7 today, hemoglobin 7.2, platelets 199. He was also noted to have a low sodium of 128, BUN 47, creatinine 1.2. He admits he has seen ultrasonic tester in the past however denies any history of coronary artery disease, stenting in the past. Patient is unsure if he is followed up in the office recently. Cardiology was consult that secondary to wide complex tachycardia. Patient had a 6 beat run of nonsustained ventricular tachycardia. He also had a 15 second wide-complex tachycardia however there is no change in axis and appeared to be his baseline left bundle-branch block with SVT at approximately 170 bpm on 07/01 at 1:00am. Patient denies any symptoms of feeling lightheaded or dizzy. He denies any recent syncopal or near syncopal episodes. He denies any chest pain or pressure. EKG was repeated which shows normal sinus rhythm, left bundle branch block. 07/02/2020: Patient seen and examined at bedside. Patient's pain complaints are fatigue related to his pancytopenia, chemotherapy. Patient is somnolent and but alert and oriented 3. Blood pressure 92/62, heart rate 88, afebrile, maintaining oxygen saturations 98% on room air. Laboratory data reviewed WBC 1.4, hemoglobin 6.4, platelets 35, sodium 1:30, potassium 3.8, serum creatinine 1.11, BUN 47, magnesium 2.1. Echocardiogram revealed left ventricular systolic function severely impaired with EF between 20-25%, global hypokinesis, mild aortic stenosis with a peak/mean gradient of 20 mmHg/10 mmHg, mild to moderate mitral regurgitation, mild tricuspid regurgitation, mild pulmonary hypertension, right ventricular systolic pressure 44 mmHg Dopplers of the bilateral lower extremities report reveals negative for DVT. PHYSICAL EXAMINATION Vital signs reviewed. CONSTITUTIONAL: No apparent distress, chronically ill appearing, pale HEENT: No JVD. No carotid bruit. CHEST EXAMINATION: Lungs are clear to auscultation. No chest wall tenderness is noted on palpation or with deep breathing. HEART EXAMINATION: Regular rate and rhythm. S1, S2 heard. No murmurs, gallops or rub. ABDOMEN: Soft, nontender. Positive bowel sounds. EXTREMITIES: 2+ peripheral pulses, 1+ lower extremity edema, no calf tenderness. NEUROLOGIC EXAMINATION: Patient is awake, alert and oriented x3. ASSESSMENT Systolic Heart failure with reduced ejection fraction 20-25% Episodes of nonsustained ventricular tachycardia, patient is asymptomatic 15 second SVT with baseline left bundle branch block at approximately 170 bpm, asymptomatic Right lower lobe pneumonia seen on chest x-ray- pulmonary following, patient being treated with vancomycin and cefepime Diabetes mellitus type 2 Hypertension Hyperlipidemia Reported history of coronary artery disease, no stenting per patient Pancytopenia related to chemotherapy Lymphoma PLAN We will start metoprolol tartrate 12.5mg daily, hold for SBP <100. Replace electrolytes as needed. Plan for patient to get 1u PRBC today Further recommendations follow. Objective - Vital Signs Vital signs: Vital Signs Temp 97.7 F 07/02/20 12:40 Pulse 89 07/02/20 12:40 Resp 18 07/02/20 12:40 BP 92/59 07/02/20 12:40 Pulse Ox 99 07/02/20 12:40 Intake & Output 07/01/20 07/02/20 07/02/20 18:59 06:59 18:59 Intake Total 100 0 Output Total 620 450 Balance -620 -350 0 Intake: Oral 100 Blood Product 0 Rc Irr As1 Unit 0 [id number] Output: Urine 300 400 Post Void Residual 320 50 Other: Voiding Method Urinal Urinal Urinal Diaper Diaper Diaper # Voids 1 # Bowel Movements 1 - Labs CBC & Chem 7: 07/02/20 05:25 07/02/20 05:25 Labs: Abnormal Lab Results - Last 24 Hours (Table) 06/30/20 07/01/20 07/01/20 Range/Units 17:29 17:12 20:16 WBC (3.8-10.6) k/uL RBC (4.30-5.90) m/uL Hgb (13.0-17.5) gm/dL Hct (39.0-53.0) % RDW (11.5-15.5) % Plt Count (150-450) k/uL Neutrophils # (1.3-7.7) k/uL Neutrophils # (Manual) (1.3-7.7) k/uL Lymphocytes # (1.0-4.8) k/uL Lymphocytes # (Manual) (1.0-4.8) k/uL Metamyelocytes # (Man) (0) k/uL ABG pO2 (83-108) mmHg ABG Total CO2 (19-24) mmol/L Sodium (137-145) mmol/L BUN (9-20) mg/dL Glucose (74-99) mg/dL POC Glucose (mg/dL) 194 H 189 H (75-99) mg/dL Calcium (8.4-10.2) mg/dL Total Protein (6.3-8.2) g/dL Albumin (3.5-5.0) g/dL Crossmatch See Detail 07/02/20 07/02/20 07/02/20 Range/Units 04:54 05:25 05:25 WBC 1.4 L* (3.8-10.6) k/uL RBC 2.13 L (4.30-5.90) m/uL Hgb 6.4 L* (13.0-17.5) gm/dL Hct 19.5 L* (39.0-53.0) % RDW 17.9 H (11.5-15.5) % Plt Count 35 L (150-450) k/uL Neutrophils # 1.2 L (1.3-7.7) k/uL Neutrophils # (Manual) 0.90 L (1.3-7.7) k/uL Lymphocytes # 0.1 L (1.0-4.8) k/uL Lymphocytes # (Manual) 0.08 L (1.0-4.8) k/uL Metamyelocytes # (Man) 0.03 H (0) k/uL ABG pO2 (83-108) mmHg ABG Total CO2 (19-24) mmol/L Sodium 130 L (137-145) mmol/L BUN 47 H (9-20) mg/dL Glucose 111 H (74-99) mg/dL POC Glucose (mg/dL) 128 H (75-99) mg/dL Calcium 7.7 L (8.4-10.2) mg/dL Total Protein 4.0 L (6.3-8.2) g/dL Albumin 2.1 L (3.5-5.0) g/dL Crossmatch 07/02/20 07/02/20 07/02/20 Range/Units 07:03 11:29 12:19 WBC (3.8-10.6) k/uL RBC (4.30-5.90) m/uL Hgb (13.0-17.5) gm/dL Hct (39.0-53.0) % RDW (11.5-15.5) % Plt Count (150-450) k/uL Neutrophils # (1.3-7.7) k/uL Neutrophils # (Manual) (1.3-7.7) k/uL Lymphocytes # (1.0-4.8) k/uL Lymphocytes # (Manual) (1.0-4.8) k/uL Metamyelocytes # (Man) (0) k/uL ABG pO2 79 L (83-108) mmHg ABG Total CO2 26 H (19-24) mmol/L Sodium (137-145) mmol/L BUN (9-20) mg/dL Glucose (74-99) mg/dL POC Glucose (mg/dL) 141 H 108 H (75-99) mg/dL Calcium (8.4-10.2) mg/dL Total Protein (6.3-8.2) g/dL Albumin (3.5-5.0) g/dL Crossmatch Microbiology - Last 24 Hours (Table) 07/01/20 00:05 Blood Culture - Preliminary Blood No Growth after 24 hours 06/30/20 23:54 Blood Culture - Preliminary Blood No Growth after 24 hours 06/30/20 17:29 Blood Culture - Preliminary Blood No Growth after 24 hours 06/30/20 17:29 Blood Culture - Preliminary Blood No Growth after 24 hours
--- NOTE | 2020-07-02 14:34 | P.PN ---
Subjective Progress Note Date: 07/02/20 HISTORY OF PRESENT ILLNESS This is a 79-year-old male with a past medical history of lymphoma, coronary artery disease, diabetes, dyslipidemia. Patient presented to the emergency room for generalized weakness. Per patient he has last chemotherapy 3 days ago for his lymphoma, he follows with Dr. Jerry. Patient reports loss of appetite, diarrhea but seems to be chronic, denies any nausea or vomiting, or abdominal pain. Upon arrival to the emergency department, blood pressure a little on the lower side on he is afebrile 98.4, heart rate of 99, he is 97% on room air. Laboratory values showed WBC of 0.2, hemoglobin of 7.2, platelet count of 26 sodium 1:30, BUN 42, creatinine 1.06. COVID testing was negative. Patient admitted to the hospital with oncology on consult. Patient noted to have +1 edema IV fluids turned down to 75 miles per hour. 07/01: Patient evaluated this morning, patient is resting comfortably in bed. Last night patient was noted to have a run of nonsustained ventricular tachycardia. He had a repeat EKG which showed normal sinus rhythm with left bundle branch block. Cardiology on consult, will obtain an echocardiogram. Stat magnesium resulted back at 1.8, replacement has been given. Actos has also been discontinued for his arrhythmia and also concern for congestive heart failure, Lantus 10 units ordered. Repeat chest x-ray showed congestive heart failure with small pleural effusions with right lower lobe pneumonia. Patient was ordered 1 unit of packed red blood cells, unable to complete due to the run of V. tach and concern for congestive heart failure. Patient continues on vancomycin and cefepime. Cultures are still pending. Patient noted to retain urine, straight cathed last night, will obtain postvoid residual and add Flomax. Blood pressure has been running on the lower side, midodrine 10 mg 3 times a day has been ordered. Laboratory values WBC 0.7, hemoglobin 7.2, platelet 29, sodium 128, BUN 47, creatinine 1.23, repeat magnesium 2.2 07/02: She continues to have significant weakness and was up to the chair yesterday. He did not have any lightheadedness or dizziness. He states he is eating a little bit but continues to have poor appetite. Ultrasound of bilateral lower extremities added. Patient is not sleeping very well and melatonin will be added. Oncology ordered 1 dose of IV Lasix this morning. He is maintained on cefepime and vancomycin per pulmonary medicine. Patient has been afebrile, heart rate 88, blood pressure 92/62, pulse ox 90% on room air. Repeat blood work reveals WBC 1.4, hemoglobin 6.4, platelet count 35. Sodium 130, potassium 3.8, chloride 100, CO2 25, BUN 47 and creatinine 1.11. Blood sugar running between 111 and 141. Calcium 7.7. Liver function tests were normal. Echocardiogram reveals EF of 20-25%, mild concentric left ventricular hypertrophy, mild aortic stenosis, [id number] mitral regurgitation, mild tricuspid regurgitation, mild pulmonary hypertension. Ultrasound of the bilateral lower extremities negative for DVT. Lopressor 12.5 mg daily has been added. Patient to be transfused of 1 unit of packed RBCs today. Patient is followed by multiple consultants including oncology, pulmonary medicine, cardiology. REVIEW OF SYSTEMS Constitutional: No fever, no chills, no night sweats. No weight change. Reports weakness, reports fatigue reports lethargy. No daytime sleepiness. EENT: No headache. No blurred vision or double vision, no loss of vision. No loss of Hearing, no ringing in the ears, no dizziness. No nasal drainage or congestion. No epistaxis. No sore throat. Lungs: No shortness of breath, cough, no sputum production. No wheezing. Cardiovascular: No chest pain, reports lower extremity edema. No palpitations. No paroxysmal nocturnal dyspnea. No orthopnea. No lightheadedness or dizziness. No syncopal episodes. Abdominal: No abdominal pain. No nausea, vomiting. No diarrhea. No constipati on. No bloody or tarry stools.. Reports loss of appetite. Genitourinary: No dysuria, increased frequency, urgency. No urinary retention. Musculoskeletal: No myalgias. No muscle weakness, no gait dysfunction, no frequent falls. No back pain. No neck pain. Integumentary: No wounds, no lesions. No rash or pruritus. No unusual bruising. No change in hair or nails. Neurologic: No aphasia. No facial droop. No change in mentation. No head injury. No headache. No paralysis. No paresthesia. Psychiatric: No depression. No anxiety. Endocrine: No abnormal blood sugars. PHYSICAL EXAMINATION Gen: This is a 79-year-old male patient. He is resting in bed and appears to be comfortable at rest. HEENT: Head is atraumatic, normocephalic. Pupils equal, round. Sclerae is anicteric. Conjunctiva pale. NECK: Supple. No JVD. No lymphadenopathy. No thyromegaly. LUNGS: Few crackles at the bases. No wheezes. No intercostal retractions. HEART: Regular rate and rhythm. No murmur. ABDOMEN: Soft. Bowel sounds are present. No masses. No tenderness. EXTREMITIES: The lateral 1+ left greater than right lower extremity pedal edema. No calf tenderness. NEUROLOGICAL: Patient is awake, alert and oriented x3. Cranial nerves 2 through 12 are grossly intact. ASSESSMENT AND PLAN 1. Generalized weakness and dehydration secondary to chemotherapy and lymphoma. IV hydration discontinued due to fluid overload, Zofran as needed along with Marinol 5 mg twice a day, Ensure 2. Right lower lobe pneumonia. Continue cefepime 1 g IV piggyback every 12 hours and vancomycin, pharmacy dosing. 3. Hyponatremia. Continue to monitor. 4. Intermittent runs of ventricular tachycardia and PSVT. Cardiology consult appreciated. 5. 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 Oncology consult appreciated. 6. History of lymphoma. Oncology on consult. 7. Pancytopenia secondary from chemotherapy and lymphoma. Continue to monitor CBC. Patient be transfused 1 unit of packed RBCs today. 8. Chronic systolic heart failure. Consult with cardiology appreciated. Patient started on metoprolol tartrate 12.5 mg daily with parameters. 9. Diabetes mellitus type II with hyperglycemia. Will continue with Accu-Cheks with NovoLog sliding scale, continue Tradjenta 5 mg, metformin 1000 mg daily, Actos discontinued, and Lantus 10 units ordered 10. History of coronary artery disease. Continue Lipitor 20 mg daily, blood pressure medication on hold due to hypotension 11. Hypotension secondary to dehydration. Home blood pressure medication currently on hold, Midodrine 10 mg 3 times a day 12. Hyperlipidemia. On Lipitor 20 mg daily 13. Laura infection to bilateral groin. On nystatin cream twice a day 14. Urinary retention. Will obtain post void residual and add Flomax 0.4 mg daily 15. Hypomagnesemia. Replacement given, repeat magnesium level tomorrow 16. DVT prophylaxis. Pneumatic compression stockings 17. GI prophylaxis pantoprazole DISCHARGE PLAN Home with homecare or ECF. senior payroll manager is following. PT and OT consults added. Impression and plan of care have been directed as dictated by the signing physician. Kira Byrd nurse practitioner acting as scribe for signing physician. Objective - Vital Signs Vital signs: Vital Signs Temp 98.2 F 07/02/20 04:40 Pulse 80 07/02/20 07:44 Resp 20 07/02/20 04:40 BP 99/62 07/02/20 07:44 Pulse Ox 97 07/02/20 07:09 Intake & Output 07/01/20 07/02/20 07/02/20 18:59 06:59 18:59 Intake Total 100 Output Total 620 450 Balance -620 -350 Intake: Oral 100 Output: Urine 300 400 Post Void Residual 320 50 Other: Voiding Method Urinal Urinal Diaper Diaper # Voids 1 # Bowel Movements 1 - Labs CBC & Chem 7: 07/02/20 05:25 07/02/20 05:25 Labs: Abnormal Lab Results - Last 24 Hours (Table) 06/30/20 07/01/20 07/01/20 Range/Units 17:29 12:02 17:12 WBC (3.8-10.6) k/uL RBC (4.30-5.90) m/uL Hgb (13.0-17.5) gm/dL Hct (39.0-53.0) % RDW (11.5-15.5) % Plt Count (150-450) k/uL Neutrophils # (1.3-7.7) k/uL Neutrophils # (Manual) (1.3-7.7) k/uL Lymphocytes # (1.0-4.8) k/uL Lymphocytes # (Manual) (1.0-4.8) k/uL Metamyelocytes # (Man) (0) k/uL Sodium (137-145) mmol/L BUN (9-20) mg/dL Glucose (74-99) mg/dL POC Glucose (mg/dL) 238 H 194 H (75-99) mg/dL Calcium (8.4-10.2) mg/dL Total Protein (6.3-8.2) g/dL Albumin (3.5-5.0) g/dL Crossmatch See Detail 07/01/20 07/02/20 07/02/20 Range/Units 20:16 04:54 05:25 WBC (3.8-10.6) k/uL RBC (4.30-5.90) m/uL Hgb (13.0-17.5) gm/dL Hct (39.0-53.0) % RDW (11.5-15.5) % Plt Count (150-450) k/uL Neutrophils # (1.3-7.7) k/uL Neutrophils # (Manual) (1.3-7.7) k/uL Lymphocytes # (1.0-4.8) k/uL Lymphocytes # (Manual) (1.0-4.8) k/uL Metamyelocytes # (Man) (0) k/uL Sodium 130 L (137-145) mmol/L BUN 47 H (9-20) mg/dL Glucose 111 H (74-99) mg/dL POC Glucose (mg/dL) 189 H 128 H (75-99) mg/dL Calcium 7.7 L (8.4-10.2) mg/dL Total Protein 4.0 L (6.3-8.2) g/dL Albumin 2.1 L (3.5-5.0) g/dL Crossmatch 07/02/20 07/02/20 Range/Units 05:25 07:03 WBC 1.4 L* (3.8-10.6) k/uL RBC 2.13 L (4.30-5.90) m/uL Hgb 6.4 L* (13.0-17.5) gm/dL Hct 19.5 L* (39.0-53.0) % RDW 17.9 H (11.5-15.5) % Plt Count 35 L (150-450) k/uL Neutrophils # 1.2 L (1.3-7.7) k/uL Neutrophils # (Manual) 0.90 L (1.3-7.7) k/uL Lymphocytes # 0.1 L (1.0-4.8) k/uL Lymphocytes # (Manual) 0.08 L (1.0-4.8) k/uL Metamyelocytes # (Man) 0.03 H (0) k/uL Sodium (137-145) mmol/L BUN (9-20) mg/dL Glucose (74-99) mg/dL POC Glucose (mg/dL) 141 H (75-99) mg/dL Calcium (8.4-10.2) mg/dL Total Protein (6.3-8.2) g/dL Albumin (3.5-5.0) g/dL Crossmatch Microbiology - Last 24 Hours (Table) 07/01/20 00:05 Blood Culture - Preliminary Blood No Growth after 24 hours 06/30/20 23:54 Blood Culture - Preliminary Blood No Growth after 24 hours 06/30/20 17:29 Blood Culture - Preliminary Blood No Growth after 24 hours 06/30/20 17:29 Blood Culture - Preliminary Blood No Growth after 24 hours
--- NOTE | 2020-07-02 16:47 | XR ---
EXAMINATION TYPE: XR chest 1V portable DATE OF EXAM: 07/02/2020 CLINICAL HISTORY: Difficulty breathing an pneumonia progress study. History of lymphoma. TECHNIQUE: Single AP portable upright view of the chest is obtained. COMPARISON: Chest x-ray from 2 days earlier and older studies. FINDINGS: Stable right internal jugular Mediport catheter. Persistent central vascular congestion an d heart size stable upper limits of normal. Persistent bilateral interstitial edema. Osseous structur es are intact. IMPRESSION: Suspect persistent CHF exacerbation and/or fluid overload status as there is moderate brenda tral vascular congestion and interstitial edema redemonstrated. Correlate clinically. No significant change from most recent x-ray.
--- NOTE | 2020-07-02 16:55 | P.PN ---
Subjective Progress Note Date: 07/02/20 patient remains quite weak and lethargic. He is not short of breath at rest but does get short of breath even with moving around in bed. Apparently he has been intermittently confused. No fever/chills/nausea/vomiting/obvious bleeding. Objective - Vital Signs Vital signs: Vital Signs Temp 97.4 F L 07/02/20 14:36 Pulse 95 07/02/20 14:36 Resp 18 07/02/20 14:36 BP 118/75 07/02/20 14:36 Pulse Ox 94 L 07/02/20 14:36 Intake & Output 07/01/20 07/02/20 07/02/20 18:59 06:59 18:59 Intake Total 100 310 Output Total 620 450 Balance -620 -350 310 Intake: Oral 100 Blood Product 310 Rc Irr As1 Unit 310 [id number] Output: Urine 300 400 Post Void Residual 320 50 Other: Voiding Method Urinal Urinal Urinal Diaper Diaper Diaper # Voids 1 # Bowel Movements 1 - Constitutional General appearance: Present: no acute distress - EENT Eyes: Present: EOMI ENT: Present: hearing grossly normal, normal oropharynx - Respiratory Respiratory: bilateral: rales - Cardiovascular Rhythm: regular Heart sounds: normal: S1, S2 - Gastrointestinal General gastrointestinal: Present: normal bowel sounds, soft - Integumentary Integumentary: Present: normal - Neurologic Neurologic: Present: CNII-XII intact - Musculoskeletal Musculoskeletal: Present: generalized weakness - Psychiatric Psychiatric Comment(s): lethargic, somewhat difficult for us. responds to commands appropriately. Recall and cognition significantly slow compared to baseline - Labs CBC & Chem 7: 07/02/20 05:25 07/02/20 05:25 Labs: Abnormal Lab Results - Last 24 Hours (Table) 06/30/20 07/01/20 07/01/20 Range/Units 17:29 17:12 20:16 WBC (3.8-10.6) k/uL RBC (4.30-5.90) m/uL Hgb (13.0-17.5) gm/dL Hct (39.0-53.0) % RDW (11.5-15.5) % Plt Count (150-450) k/uL Neutrophils # (1.3-7.7) k/uL Neutrophils # (Manual) (1.3-7.7) k/uL Lymphocytes # (1.0-4.8) k/uL Lymphocytes # (Manual) (1.0-4.8) k/uL Metamyelocytes # (Man) (0) k/uL ABG pO2 (83-108) mmHg ABG Total CO2 (19-24) mmol/L Sodium (137-145) mmol/L BUN (9-20) mg/dL Glucose (74-99) mg/dL POC Glucose (mg/dL) 194 H 189 H (75-99) mg/dL Calcium (8.4-10.2) mg/dL Total Protein (6.3-8.2) g/dL Albumin (3.5-5.0) g/dL Crossmatch See Detail 07/02/20 07/02/20 07/02/20 Range/Units 04:54 05:25 05:25 WBC 1.4 L* (3.8-10.6) k/uL RBC 2.13 L (4.30-5.90) m/uL Hgb 6.4 L* (13.0-17.5) gm/dL Hct 19.5 L* (39.0-53.0) % RDW 17.9 H (11.5-15.5) % Plt Count 35 L (150-450) k/uL Neutrophils # 1.2 L (1.3-7.7) k/uL Neutrophils # (Manual) 0.90 L (1.3-7.7) k/uL Lymphocytes # 0.1 L (1.0-4.8) k/uL Lymphocytes # (Manual) 0.08 L (1.0-4.8) k/uL Metamyelocytes # (Man) 0.03 H (0) k/uL ABG pO2 (83-108) mmHg ABG Total CO2 (19-24) mmol/L Sodium 130 L (137-145) mmol/L BUN 47 H (9-20) mg/dL Glucose 111 H (74-99) mg/dL POC Glucose (mg/dL) 128 H (75-99) mg/dL Calcium 7.7 L (8.4-10.2) mg/dL Total Protein 4.0 L (6.3-8.2) g/dL Albumin 2.1 L (3.5-5.0) g/dL Crossmatch 07/02/20 07/02/20 07/02/20 Range/Units 07:03 11:29 12:19 WBC (3.8-10.6) k/uL RBC (4.30-5.90) m/uL Hgb (13.0-17.5) gm/dL Hct (39.0-53.0) % RDW (11.5-15.5) % Plt Count (150-450) k/uL Neutrophils # (1.3-7.7) k/uL Neutrophils # (Manual) (1.3-7.7) k/uL Lymphocytes # (1.0-4.8) k/uL Lymphocytes # (Manual) (1.0-4.8) k/uL Metamyelocytes # (Man) (0) k/uL ABG pO2 79 L (83-108) mmHg ABG Total CO2 26 H (19-24) mmol/L Sodium (137-145) mmol/L BUN (9-20) mg/dL Glucose (74-99) mg/dL POC Glucose (mg/dL) 141 H 108 H (75-99) mg/dL Calcium (8.4-10.2) mg/dL Total Protein (6.3-8.2) g/dL Albumin (3.5-5.0) g/dL Crossmatch Microbiology - Last 24 Hours (Table) 07/01/20 00:05 Blood Culture - Preliminary Blood No Growth after 24 hours 06/30/20 23:54 Blood Culture - Preliminary Blood No Growth after 24 hours 06/30/20 17:29 Blood Culture - Preliminary Blood No Growth after 24 hours 06/30/20 17:29 Blood Culture - Preliminary Blood No Growth after 24 hours Assessment and Plan (1) Weakness Narrative/Plan: the patient has marked generalized weakness, which is multifactorial. The main component is postchemotherapy weakness and fatigue. The patient also has pancytopenia and anemia. In addition there appeared to be components of possible CHF and pneumonia. - Chemotherapy-related side effects are expected to improve as the patient gets further out from chemotherapy. - He is currently on cefepime for treatment of pneumonia. He is also being treated for possible CHF. Cardiology is on the case. - Monitor blood counts and transfuse to keep hemoglobin greater than 7. - Monitor patient, and start physical therapy as soon as patient appears to be able Current Visit: Yes Status: Acute Code(s): R53.1 - WEAKNESS SNOMED Code(s): 84090009 (2) Pancytopenia Narrative/Plan: due to antineoplastic chemotherapy. The patient is afebrile and has no obvious bleeding. Monitor counts and transfuse to keep hemoglobin greater than 7, and platelets greater than 10. If patient is actively bleeding can transfuse if platelets are less than 40. Patient's WBC is low but ANC is actually greater than 1000. He already received Neulasta, on 06/26/20. Current Visit: Yes Status: Acute Code(s): D61.818 - OTHER PANCYTOPENIA SNOMED Code(s): 261978090 (3) Diffuse large B cell lymphoma Narrative/Plan: diagnostic and therapeutic circumstances as described in initial consult. The patient was to have PET scan after cycle #2. This may have to be scheduled. He also appears to be having significant tolerance issues with his current regimen. Additional chemotherapy will be delayed, if needed, to allow patient to have his PET scan for restaging and to recover performance status. Depending on PET scan response, and the patient's performance status, his regimen can be changed, or modified with dose reduction, as needed Current Visit: Yes Status: Acute Code(s): C83.30 - DIFFUSE LARGE B-CELL LYMPHOMA, UNSPECIFIED SITE SNOMED Code(s): 633797506
[2020-07-02 17:21] LABS: Glucose,Whole Blood 147 mg/dL (75-99)
[2020-07-02 20:29] LABS: Glucose,Whole Blood 135 mg/dL (75-99)
[2020-07-02] MEDS: INSULIN DETEMIR (LEVEMIR) 100 UNIT/ML SYR SQ SCH (21:26)
[2020-07-02] MEDS: TAMSULOSIN 0.4 MG CAP.ER.24H PO SCH (21:26)
[2020-07-02] MEDS: ALPRAZolam 0.5 MG TAB PO PRN (21:26)
[2020-07-02] MEDS: MELATONIN 3 MG TABLET PO SCH (21:26)
[2020-07-02] MEDS: ATORVASTATIN 20 MG TAB PO SCH (21:26)
[2020-07-03] MEDS: VANCOMYCIN 2,000 MG in SODIUM CHLORIDE 0.9% 500 ML 500 ML IVPB SCH ×2 (01:09→16:35)
[2020-07-03 06:48] LABS: Glucose,Whole Blood 131 mg/dL (75-99)
[2020-07-03] MEDS: INSULIN ASPART (NovoLOG) 100 UNIT/ML VIAL SQ SCH ×4 (06:49→21:02)
[2020-07-03 07:02] LABS: Anisocytosis Slight; MCHC 32.8 g/dL (31.0-37.0); MCV 94.4 fL (80.0-100.0); Macrocytosis Slight; Mean Platelet Volume 10.7; Poikilocytosis Slight; RBC 2.65 m/uL (4.30-5.90); RDW 17.7 % (11.5-15.5); WBC 4.6 k/uL (3.8-10.6)
[2020-07-03 07:04] LABS: HGB 8.2 gm/dL (13.0-17.5); Platelet Count 39 k/uL (150-450)
[2020-07-03] MEDS: MIDODRINE 5 MG TAB PO SCH ×3 (07:56→17:18)
[2020-07-03] MEDS: MAGNESIUM OXIDE 400 MG TAB PO SCH (07:56)
[2020-07-03] MEDS: metFORMIN 500 MG TAB PO SCH (07:57)
[2020-07-03] MEDS: LINAGLIPTIN 5 MG TABLET PO SCH (07:57)
[2020-07-03] MEDS: METOPROLOL TARTRATE 12.5 MG TAB PO SCH (07:57)
[2020-07-03] MEDS: PANTOPRAZOLE 40 MG TABLET PO SCH (07:57)
[2020-07-03] MEDS: TAMSULOSIN 0.4 MG CAP.ER.24H PO SCH ×2 (07:57→21:02)
[2020-07-03] MEDS: NYSTATIN 100,000UNIT/GM CREAM 30 GM TUBE TOPICAL SCH ×2 (07:58→21:16)
[2020-07-03] MEDS: CEFEPIME 1 GM in SODIUM CHLORIDE 0.9% 50 ML IVPB SCH ×2 (07:58→23:32)
[2020-07-03] MEDS ORDERED: FUROSEMIDE 10 MG/ML 4 ML VIAL IV STA ×2 (08:58→16:09)
[2020-07-03] MEDS ORDERED: ALBUMIN HUMAN 25% 100 ML in EMPTY BAG 1 BAG IVPB SCH (09:00)
--- NOTE | 2020-07-03 11:19 | P.PN ---
Subjective Progress Note Date: 07/03/20 Principal diagnosis: Right lower lobe pneumonia Severe pancytopenia Leukopenia Anemia Thrombocytopenia GI lymphoma 07/03/2020, patient seen eval examined during the rounds labs reviewed medications reviewed, patient is sitting upright on the chair her respiratory status slightly better, on 2 L oxygen, intermittent cough is present dry nonproductive, patient is status post transfusion 1 unit packed RBC oxygen saturation improved from 97%, chest x-ray continued showing a right-sided infiltrate versus edema patient remains on vancomycin along with the cefapime, but cultures preliminary positive for gram-positive cocci final ID is pending, globin improved to 8.2, at cell count is 4600, 07/02/2020, patient seen eval examined during the rounds labs reviewed medications reviewed care plan discussed, patient very somnolent but arousable, on 3 L oxygen, hemoglobin is down to 6.4 patient is to get unit of packed RBC, patient is scheduled for duplex ultrasound the lower extremity rule out DVT as they appear and looked more edematous, will order arterial blood gas as well as along with chest x-ray, WBC count is up to 1400, potassium is 3.8, BUN/creatinine 47 and 1.11, bilateral lower extremity negative for DVT, chest x- ray and ABG pending 07/01/2020, patient is being eval by cardiovascular services due to asymptomatic run of nonsustained ventricular tachycardia also intermittent SVT, patient remains afebrile hemodynamic status is marginal remains on broad-spectrum antibiotics, cell count is slightly up to 700, hemoglobin is 7.2, sodium 128, BUN/creatinine 47/1.23, This is a pleasant 79-year-old male who was diagnosed as GI lymphoma has been getting chemotherapy also has significant history of coronary artery disease dyslipidemia patient came into the hospital with the his daughter due to generalized weakness has been progressive for the last 3 days, patient has been getting chemotherapy, lately patient is having low blood pressure tiredness fatigue anxiety and apprehension, blood pressure in the ER noted to be 97/60, labs were significant for severe pancytopenia with neutropenia white cell count is only 200 hemoglobin 7.2 and platelet count of 26, patient noted to be on very high-dose prednisone of 120 mg his covert test is negative, patient chest x-ray is positive for bilateral small pleural effusion and right lower lobe pneumonia and stable right central venous catheter Objective - Vital Signs Vital signs: Vital Signs Temp 97.6 F 07/03/20 04:06 Pulse 93 07/03/20 04:06 Resp 18 07/03/20 04:06 BP 90/55 07/03/20 04:06 Pulse Ox 97 07/03/20 07:07 Intake & Output 07/02/20 07/03/20 07/03/20 18:59 06:59 18:59 Intake Total 310 550 Output Total 95 300 Balance 215 550 -300 Intake: Intake, IV Titration 550 Amount Cefepime 1 gm In Sodium 50 Chloride 0.9% 50 ml @ 12. 5 mls/hr IVPB Q12HR [facility] Rx#:[id number] Vancomycin 2,000 mg In 500 Sodium Chloride 0.9% 500 ml 500 ml @ 167 mls/hr IVPB Q16H [facility] Rx#: [id number] Blood Product 310 Rc Irr As1 Unit 310 [id number] Output: Urine 300 Post Void Residual 95 Other: Voiding Method Urinal Urinal Urinal Diaper Diaper Diaper # Voids 1 1 - Exam - Constitutional General appearance: average body habitus, cooperative, no acute distress - EENT Eyes: EOMI, PERRLA, normal appearance - Respiratory Respiratory: bilateral: CTA, negative: diminished, dullness, rales, rhonchi, wheezing - Cardiovascular Rhythm: regular Heart sounds: normal: S1, S2 leg Peripheral Edema: bilateral: 1+ - Gastrointestinal General gastrointestinal: decreased bowel sounds, no distended, no hepatomegaly, normal bowel sounds, no organomegaly, no rigid, soft, no tenderness - Integumentary Integumentary: pale, rash - Neurologic Neurologic: CNII-XII intact - Musculoskeletal Musculoskeletal: generalized weakness - Psychiatric Psychiatric: A&O x's 3, appropriate affect, intact judgment & insight - Labs CBC & Chem 7: 07/03/20 06:32 07/02/20 05:25 Labs: Abnormal Lab Results - Last 24 Hours (Table) 06/30/20 07/02/20 07/02/20 Range/Units 17:29 11:29 12:19 RBC (4.30-5.90) m/uL Hgb (13.0-17.5) gm/dL Hct (39.0-53.0) % RDW (11.5-15.5) % Plt Count (150-450) k/uL Lymphocytes # (1.0-4.8) k/uL ABG pO2 79 L (83-108) mmHg ABG Total CO2 26 H (19-24) mmol/L POC Glucose (mg/dL) 108 H (75-99) mg/dL Crossmatch See Detail 07/02/20 07/02/20 07/03/20 Range/Units 17:18 20:20 06:32 RBC 2.65 L (4.30-5.90) m/uL Hgb 8.2 L D (13.0-17.5) gm/dL Hct 25.0 L (39.0-53.0) % RDW 17.7 H (11.5-15.5) % Plt Count 39 L (150-450) k/uL Lymphocytes # 0.1 L (1.0-4.8) k/uL ABG pO2 (83-108) mmHg ABG Total CO2 (19-24) mmol/L POC Glucose (mg/dL) 147 H 135 H (75-99) mg/dL Crossmatch 07/03/20 Range/Units 06:47 RBC (4.30-5.90) m/uL Hgb (13.0-17.5) gm/dL Hct (39.0-53.0) % RDW (11.5-15.5) % Plt Count (150-450) k/uL Lymphocytes # (1.0-4.8) k/uL ABG pO2 (83-108) mmHg ABG Total CO2 (19-24) mmol/L POC Glucose (mg/dL) 131 H (75-99) mg/dL Crossmatch Microbiology - Last 24 Hours (Table) 07/01/20 00:05 Blood Culture Gram Stain - Preliminary Blood 07/01/20 00:05 Blood Culture - Final Blood 06/30/20 23:54 Blood Culture - Preliminary Blood No Growth after 48 hours 06/30/20 17:29 Blood Culture - Preliminary Blood No Growth after 48 hours 06/30/20 17:29 Blood Culture - Preliminary Blood No Growth after 48 hours Assessment and Plan Assessment: Gram-positive bacteremia due to gram-positive cocci Altered mental status likely multifactorial Right lower lobe pneumonia Severe pancytopenia including anemia Leukopenia Hyponatremia Intermittent runs of ventricular tachycardia and PSVT Anemia Thrombocytopenia 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
[2020-07-03 11:40] LABS: Glucose,Whole Blood 148 mg/dL (75-99)
[2020-07-03] MEDS: ALBUMIN HUMAN 25% 50 ML in EMPTY BAG 1 BAG IVPB SCH ×4 (12:28→22:18)
[2020-07-03 12:44] LABS: Band Neutrophils % 9 %; Eosinophils # (M) 0.05 k/uL (0-0.7); Lymphocytes # (M) 0.05 k/uL (1.0-4.8); Monocytes # (M) 0.46 k/uL (0-1.0); Myelocytes # (M) 0.09 k/uL (0); Myelocytes % 2 %; Neutrophils % (M) 80 %; Nucleated Red Blood Cells 0 /100 WBC (0-0); Total Cells Counted 200
[2020-07-03 12:45] LABS: Ovalocytes Present; Polychromasia Present
[2020-07-03 12:46] LABS: RBC Fragments Present; Toxic Granulation Present
--- NOTE | 2020-07-03 12:56 | P.PN ---
Subjective This is a pleasant 79-year-old male. He has a history of hypertension, diabetes mellitus type 2, hyperlipidemia, questionable coronary artery disease per patient, mild lower extremity edema and lymphoma. He had prior history of lymphoma proximally years ago however has had recurrence and has been undergoing chemotherapy, last dose approximate 4 days ago. Patient has noticed increased lethargy especially last few days with fatigue. He was found to have pancytopenia with white blood cell count 0.7 today, hemoglobin 7.2, platelets 199. He was also noted to have a low sodium of 128, BUN 47, creatinine 1.2. He admits he has seen science interpreter in the past however denies any history of coronary artery disease, stenting in the past. Patient is unsure if he is followed up in the office recently. Cardiology was consult that secondary to wide complex tachycardia. Patient had a 6 beat run of nonsustained ventricular tachycardia. He also had a 15 second wide-complex tachycardia however there is no change in axis and appeared to be his baseline left bundle-branch block with SVT at approximately 170 bpm on 07/01 at 1:00am. Patient denies any symptoms of feeling lightheaded or dizzy. He denies any recent syncopal or near syncopal episodes. He denies any chest pain or pressure. EKG was repeated which shows normal sinus rhythm, left bundle branch block. 07/02 Echocardiogram revealed left ventricular systolic function severely impai red with EF between 20-25%, global hypokinesis, mild aortic stenosis with a peak/mean gradient of 20 mmHg/10 mmHg, mild to moderate mitral regurgitation, mild tricuspid regurgitation, mild pulmonary hypertension, right ventricular systolic pressure 44 mmHg Dopplers of the bilateral lower extremities report reveals negative for DVT. 07/03/2020: Patient seen and examined at bedside, sitting up in the chair. Appears weak and frail. Patient's hemoglobin 6.4 yesterday and received 1 unit PRBCs. Blood pressure 90/55, heart rate 93, afebrile, maintaining oxygen saturations 98% on room air. Laboratory data reviewed WBC 1.4, hemoglobin 6.4, platelets 35, sodium 1:30, potassium 3.8, serum creatinine 1.11, BUN 47, magnesium 2.1. Telemetry reviewed, patient is in sinus mechanism HR 80-90s, patient continues to have episodes of non-sustained ventricular tachycardia. Had an 2 episodes of SVT last night HR 100 at 8:45pm and 10:00pm. Laboratory reviewed, WBC 4.6, hemoglobin 8.2, platelets are 39, BMP not resulted today. PHYSICAL EXAMINATION Vital signs reviewed. CONSTITUTIONAL: No apparent distress, chronically ill appearing, pale HEENT: No JVD. No carotid bruit. CHEST EXAMINATION: Lungs are clear to auscultation. No chest wall tenderness is noted on palpation or with deep breathing. HEART EXAMINATION: Regular rate and rhythm. S1, S2 heard. No murmurs, gallops or rub. ABDOMEN: Soft, nontender. Positive bowel sounds. EXTREMITIES: 2+ peripheral pulses, 1+ lower extremity edema, no calf tenderness. NEUROLOGIC EXAMINATION: Patient is awake, alert and oriented x3. ASSESSMENT Systolic Heart failure with reduced ejection fraction 20-25% Wide complex tachycardia, most likely ventricular Episodes of nonsustained ventricular tachycardia, patient is asymptomatic Episodes of SVT with baseline left bundle branch block, asymptomatic Right lower lobe pneumonia seen on chest x-ray- pulmonary following, patient being treated with vancomycin and cefepime Diabetes mellitus type 2 Hypertension Hyperlipidemia Reported history of coronary artery disease, no stenting per patient Pancytopenia related to chemotherapy s/p Lymphoma PLAN Continue metoprolol tartrate 12.5mg daily Will start amiodarone 200mg BID Monitor blood pressure and heart rate Monitor electrolytes and renal function daily, replace electrolytes as needed Continue cardiac telemetry Poor prognosis Further recommendations follow. Objective - Vital Signs Vital signs: Vital Signs Temp 97.6 F 07/03/20 04:06 Pulse 93 07/03/20 04:06 Resp 18 07/03/20 04:06 BP 90/55 07/03/20 04:06 Pulse Ox 97 07/03/20 07:07 Intake & Output 07/02/20 07/03/20 07/03/20 18:59 06:59 18:59 Intake Total 310 550 Output Total 95 300 Balance 215 550 -300 Intake: Intake, IV Titration 550 Amount Cefepime 1 gm In Sodium 50 Chloride 0.9% 50 ml @ 12. 5 mls/hr IVPB Q12HR [facility] Rx#:[id number] Vancomycin 2,000 mg In 500 Sodium Chloride 0.9% 500 ml 500 ml @ 167 mls/hr IVPB Q16H [facility] Rx#: [id number] Blood Product 310 Rc Irr As1 Unit 310 [id number] Output: Urine 300 Post Void Residual 95 Other: Voiding Method Urinal Urinal Diaper Diaper # Voids 1 1 - Labs CBC & Chem 7: 07/03/20 06:32 07/02/20 05:25 Labs: Abnormal Lab Results - Last 24 Hours (Table) 06/30/20 07/02/20 07/02/20 Range/Units 17:29 11:29 12:19 RBC (4.30-5.90) m/uL Hgb (13.0-17.5) gm/dL Hct (39.0-53.0) % RDW (11.5-15.5) % Plt Count (150-450) k/uL Lymphocytes # (1.0-4.8) k/uL ABG pO2 79 L (83-108) mmHg ABG Total CO2 26 H (19-24) mmol/L POC Glucose (mg/dL) 108 H (75-99) mg/dL Crossmatch See Detail 07/02/20 07/02/20 07/03/20 Range/Units 17:18 20:20 06:32 RBC 2.65 L (4.30-5.90) m/uL Hgb 8.2 L D (13.0-17.5) gm/dL Hct 25.0 L (39.0-53.0) % RDW 17.7 H (11.5-15.5) % Plt Count 39 L (150-450) k/uL Lymphocytes # 0.1 L (1.0-4.8) k/uL ABG pO2 (83-108) mmHg ABG Total CO2 (19-24) mmol/L POC Glucose (mg/dL) 147 H 135 H (75-99) mg/dL Crossmatch 07/03/20 Range/Units 06:47 RBC (4.30-5.90) m/uL Hgb (13.0-17.5) gm/dL Hct (39.0-53.0) % RDW (11.5-15.5) % Plt Count (150-450) k/uL Lymphocytes # (1.0-4.8) k/uL ABG pO2 (83-108) mmHg ABG Total CO2 (19-24) mmol/L POC Glucose (mg/dL) 131 H (75-99) mg/dL Crossmatch Microbiology - Last 24 Hours (Table) 07/01/20 00:05 Blood Culture Gram Stain - Preliminary Blood 07/01/20 00:05 Blood Culture - Final Blood 06/30/20 23:54 Blood Culture - Preliminary Blood No Growth after 48 hours 06/30/20 17:29 Blood Culture - Preliminary Blood No Growth after 48 hours 06/30/20 17:29 Blood Culture - Preliminary Blood No Growth after 48 hours
--- NOTE | 2020-07-03 14:32 | P.PN ---
Subjective Progress Note Date: 07/03/20 Hemoglobin 8.2, PLatelets 39K. Objective - Vital Signs Vital signs: Vital Signs Temp 97 F L 07/03/20 11:50 Pulse 97 07/03/20 11:50 Resp 20 07/03/20 11:50 BP 91/54 07/03/20 12:41 Pulse Ox 95 07/03/20 11:50 Intake & Output 07/02/20 07/03/20 07/03/20 18:59 06:59 18:59 Intake Total 310 550 Output Total 95 300 Balance 215 550 -300 Intake: Intake, IV Titration 550 Amount Cefepime 1 gm In Sodium 50 Chloride 0.9% 50 ml @ 12. 5 mls/hr IVPB Q12HR [facility] Rx#:[id number] Vancomycin 2,000 mg In 500 Sodium Chloride 0.9% 500 ml 500 ml @ 167 mls/hr IVPB Q16H [facility] Rx#: [id number] Blood Product 310 Rc Irr As1 Unit 310 [id number] Output: Urine 300 Post Void Residual 95 Other: Voiding Method Urinal Urinal Urinal Diaper Diaper Diaper # Voids 1 1 - Exam - Constitutional General appearance: Present: no acute distress - EENT Eyes: Present: EOMI ENT: Present: hearing grossly normal, normal oropharynx - Respiratory Respiratory: bilateral: rales - Cardiovascular Rhythm: regular Heart sounds: normal: S1, S2 - Gastrointestinal General gastrointestinal: Present: normal bowel sounds, soft - Integumentary Integumentary: Present: normal - Neurologic Neurologic: Present: CNII-XII intact - Musculoskeletal Musculoskeletal: Present: generalized weakness - Psychiatric Psychiatric Comment(s): lethargic, somewhat difficult for us. responds to commands appropriately. Recall and cognition significantly slow compared to baseline - Labs CBC & Chem 7: 07/03/20 06:32 07/03/20 06:32 Labs: Abnormal Lab Results - Last 24 Hours (Table) 06/30/20 07/02/20 07/02/20 Range/Units 17:29 17:18 20:20 RBC (4.30-5.90) m/uL Hgb (13.0-17.5) gm/dL Hct (39.0-53.0) % RDW (11.5-15.5) % Plt Count (150-450) k/uL Lymphocytes # (Manual) (1.0-4.8) k/uL Myelocytes # (Manual) (0) k/uL POC Glucose (mg/dL) 147 H 135 H (75-99) mg/dL Crossmatch See Detail 07/03/20 07/03/20 07/03/20 Range/Units 06:32 06:47 11:35 RBC 2.65 L (4.30-5.90) m/uL Hgb 8.2 L D (13.0-17.5) gm/dL Hct 25.0 L (39.0-53.0) % RDW 17.7 H (11.5-15.5) % Plt Count 39 L (150-450) k/uL Lymphocytes # (Manual) 0.05 L (1.0-4.8) k/uL Myelocytes # (Manual) 0.09 H (0) k/uL POC Glucose (mg/dL) 131 H 148 H (75-99) mg/dL Crossmatch Microbiology - Last 24 Hours (Table) 07/01/20 00:05 Blood Culture Gram Stain - Preliminary Blood 07/01/20 00:05 Blood Culture - Final Blood 06/30/20 23:54 Blood Culture - Preliminary Blood No Growth after 48 hours 06/30/20 17:29 Blood Culture - Preliminary Blood No Growth after 48 hours 06/30/20 17:29 Blood Culture - Preliminary Blood No Growth after 48 hours Assessment and Plan Plan: Assessment and Plan Weakness - Likely from chemo - Components of possible CHF and pneumonia. - Chemotherapy-related side effects are expected to improve as the patient gets further out from chemotherapy. - Cont cefepime for treatment of pneumonia. - He is also being treated for possible CHF. Cardiology is on the case. - Monitor blood counts and transfuse to keep hemoglobin greater than 7. - Monitor patient, and start physical therapy as soon as patient appears to be able Pancytopenia - Monitor counts and transfuse to keep hemoglobin greater than 7, and platelets greater than 10. - If patient is actively bleeding can transfuse if platelets are less than 40. - Patient's WBC is low but ANC is actually greater than 1000. He already received Neulasta, on 06/26/20. Diffuse large B cell lymphoma - Restaging PET soon Physician Attest: I have completed the full history and physical, developed the above impression and plan. Agree with above, dictated as a scribe
--- NOTE | 2020-07-03 14:33 | P.PN ---
Subjective Progress Note Date: 07/03/20 HISTORY OF PRESENT ILLNESS This is a 79-year-old male with a past medical history of lymphoma, coronary artery disease, diabetes, dyslipidemia. Patient presented to the emergency room for generalized weakness. Per patient he has last chemotherapy 3 days ago for his lymphoma, he follows with Dr. Jerry. Patient reports loss of appetite, diarrhea but seems to be chronic, denies any nausea or vomiting, or abdominal pain. Upon arrival to the emergency department, blood pressure a little on the lower side on he is afebrile 98.4, heart rate of 99, he is 97% on room air. Laboratory values showed WBC of 0.2, hemoglobin of 7.2, platelet count of 26 sodium 1:30, BUN 42, creatinine 1.06. COVID testing was negative. Patient admitted to the hospital with oncology on consult. Patient noted to have +1 edema IV fluids turned down to 75 miles per hour. 07/01: Patient evaluated this morning, patient is resting comfortably in bed. Last night patient was noted to have a run of nonsustained ventricular tachycardia. He had a repeat EKG which showed normal sinus rhythm with left bundle branch block. Cardiology on consult, will obtain an echocardiogram. Stat magnesium resulted back at 1.8, replacement has been given. Actos has also been discontinued for his arrhythmia and also concern for congestive heart failure, Lantus 10 units ordered. Repeat chest x-ray showed congestive heart failure with small pleural effusions with right lower lobe pneumonia. Patient was ordered 1 unit of packed red blood cells, unable to complete due to the run of V. tach and concern for congestive heart failure. Patient continues on vancomycin and cefepime. Cultures are still pending. Patient noted to retain urine, straight cathed last night, will obtain postvoid residual and add Flomax. Blood pressure has been running on the lower side, midodrine 10 mg 3 times a day has been ordered. Laboratory values WBC 0.7, hemoglobin 7.2, platelet 29, sodium 128, BUN 47, creatinine 1.23, repeat magnesium 2.2 07/02: She continues to have significant weakness and was up to the chair yesterday. He did not have any lightheadedness or dizziness. He states he is eating a little bit but continues to have poor appetite. Ultrasound of bilateral lower extremities added. Patient is not sleeping very well and melatonin will be added. Oncology ordered 1 dose of IV Lasix this morning. He is maintained on cefepime and vancomycin per pulmonary medicine. Patient has been afebrile, heart rate 88, blood pressure 92/62, pulse ox 90% on room air. Repeat blood work reveals WBC 1.4, hemoglobin 6.4, platelet count 35. Sodium 130, potassium 3.8, chloride 100, CO2 25, BUN 47 and creatinine 1.11. Blood sugar running between 111 and 141. Calcium 7.7. Liver function tests were normal. Echocardiogram reveals EF of 20-25%, mild concentric left ventricular hypertrophy, mild aortic stenosis, [id number] mitral regurgitation, mild tricuspid regurgitation, mild pulmonary hypertension. Ultrasound of the bilateral lower extremities negative for DVT. Lopressor 12.5 mg daily has been added. Patient to be transfused of 1 unit of packed RBCs today. Patient is followed by multiple consultants including oncology, pulmonary medicine, cardiology. 07/03: Patient is seen today sitting up in a recliner. Patient was to person maximum assist with physical therapy. He has been afebrile, heart rate 97, blood pressure 85/49, pulse ox 95% on 2 L. Medications reviewed and no other me dications can be adjusted for hypotension. Repeat blood work reveals WBC 4.6, hemoglobin 8.2, platelet count 39. Blood culture is showing gram-positive cocci from July 01. Patient is on vancomycin and repeat blood cultures been ordered. Repeat chest x-ray from yesterday reveals CHF exacerbation and/or fluid overload as there is moderate central vascular congestion and interstitial edema. No sig nificant change from previous. One dose of IV Lasix 40 mg ordered repeat blood work ordered for tomorrow. REVIEW OF SYSTEMS Constitutional: No fever, no chills, no night sweats. No weight change. Reports weakness, reports fatigue reports lethargy. No daytime sleepiness. EENT: No headache. No blurred vision or double vision, no loss of vision. No loss of Hearing, no ringing in the ears, no dizziness. No nasal drainage or congestion. No epistaxis. No sore throat. Lungs: No shortness of breath, cough, no sputum production. No wheezing. Cardiovascular: No chest pain, reports lower extremity edema. No palpitations. No paroxysmal nocturnal dyspnea. No orthopnea. No lightheadedness or dizziness. No syncopal episodes. Abdominal: No abdominal pain. No nausea, vomiting. No diarrhea. No constipation. No bloody or tarry stools.. Reports loss of appetite. Genitourinary: No dysuria, increased frequency, urgency. No urinary retention. Musculoskeletal: No myalgias. No muscle weakness, no gait dysfunction, no frequent falls. No back pain. No neck pain. Integumentary: No wounds, no lesions. No rash or pruritus. No unusual bruising. No change in hair or nails. Neurologic: No aphasia. No facial droop. No change in mentation. No head injury. No headache. No paralysis. No paresthesia. Psychiatric: No depression. No anxiety. Endocrine: No abnormal blood sugars. PHYSICAL EXAMINATION Gen: This is a 79-year-old male patient. He is resting in bed and appears to be comfortable at rest. HEENT: Head is atraumatic, normocephalic. Pupils equal, round. Sclerae is anicteric. Conjunctiva pale. NECK: Supple. No JVD. No lymphadenopathy. No thyromegaly. LUNGS: Few crackles at the bases. No wheezes. No intercostal retractions. HEART: Regular rate and rhythm. No murmur. ABDOMEN: Soft. Bowel sounds are present. No masses. No tenderness. EXTREMITIES: The lateral 1+ left greater than right lower extremity pedal edema. No calf tenderness. NEUROLOGICAL: Patient is awake, alert and oriented x3. Cranial nerves 2 through 12 are grossly intact. ASSESSMENT AND PLAN 1. Generalized weakness and dehydration secondary to chemotherapy and lymphoma. IV hydration discontinued due to fluid overload, Zofran as needed along with Marinol 5 mg twice a day, Ensure 2. Right lower lobe pneumonia. Continue cefepime 1 g IV piggyback every 12 hours and vancomycin, pharmacy dosing. 3. Hyponatremia. Continue to monitor. 4. Intermittent runs of ventricular tachycardia and PSVT. Cardiology consult appreciated. 5. 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 Oncology consult appreciated. 6. History of lymphoma. Oncology on consult. 7. Pancytopenia secondary from chemotherapy and lymphoma. Continue to monitor CBC. Patient be transfused 1 unit of packed RBCs today. 8. Chronic systolic heart failure. Consult with cardiology appreciated. Patient started on metoprolol tartrate 12.5 mg daily with parameters. 9. Diabetes mellitus type II with hyperglycemia. Will continue with Accu-Cheks with NovoLog sliding scale, continue Tradjenta 5 mg, metformin 1000 mg daily, Actos discontinued, and Lantus 10 units ordered 10. History of coronary artery disease. Continue Lipitor 20 mg daily, blood pressure medication on hold due to hypotension 11. Hypotension secondary to dehydration. Home blood pressure medication currently on hold, Midodrine 10 mg 3 times a day 12. Hyperlipidemia. On Lipitor 20 mg daily 13. Laura infection to bilateral groin. On nystatin cream twice a day 14. Urinary retention. Will obtain post void residual and add Flomax 0.4 mg daily 15. Hypomagnesemia. Replacement given, repeat magnesium level tomorrow 16. Blood culture with gram-positive cocci, possible contamination. Continue vancomycin, repeat blood culture. 17. DVT prophylaxis. Pneumatic compression stockings 18. GI prophylaxis pantoprazole DISCHARGE PLAN Home with homecare or ECF. desk manager is following. PT and OT consults added. Impression and plan of care have been directed as dictated by the signing olvin doshi. Kira Byrd nurse practitioner acting as scribe for signing physician. Objective - Vital Signs Vital signs: Vital Signs Temp 97.6 F 07/03/20 04:06 Pulse 93 07/03/20 04:06 Resp 18 07/03/20 04:06 BP 90/55 07/03/20 04:06 Pulse Ox 97 07/03/20 07:07 Intake & Output 07/02/20 07/03/20 07/03/20 18:59 06:59 18:59 Intake Total 310 550 Output Total 95 300 Balance 215 550 -300 Intake: Intake, IV Titration 550 Amount Cefepime 1 gm In Sodium 50 Chloride 0.9% 50 ml @ 12. 5 mls/hr IVPB Q12HR [facility] Rx#:[id number] Vancomycin 2,000 mg In 500 Sodium Chloride 0.9% 500 ml 500 ml @ 167 mls/hr IVPB Q16H [facility] Rx#: [id number] Blood Product 310 Rc Irr As1 Unit 310 [id number] Output: Urine 300 Post Void Residual 95 Other: Voiding Method Urinal Urinal Diaper Diaper # Voids 1 1 - Labs CBC & Chem 7: 07/03/20 06:32 07/02/20 05:25 Labs: Abnormal Lab Results - Last 24 Hours (Table) 06/30/20 07/02/2021 Range/Units 17:29 11:29 12:19 RBC (4.30-5.90) m/uL Hgb (13.0-17.5) gm/dL Hct (39.0-53.0) % RDW (11.5-15.5) % Plt Count (150-450) k/uL Lymphocytes # (1.0-4.8) k/uL ABG pO2 79 L (83-108) mmHg ABG Total CO2 26 H (19-24) mmol/L POC Glucose (mg/dL) 108 H (75-99) mg/dL Crossmatch See Detail 07/02/20 07/02/20 07/03/20 Range/Units 17:18 20:20 06:32 RBC 2.65 L (4.30-5.90) m/uL Hgb 8.2 L D (13.0-17.5) gm/dL Hct 25.0 L (39.0-53.0) % RDW 17.7 H (11.5-15.5) % Plt Count 39 L (150-450) k/uL Lymphocytes # 0.1 L (1.0-4.8) k/uL ABG pO2 (83-108) mmHg ABG Total CO2 (19-24) mmol/L POC Glucose (mg/dL) 147 H 135 H (75-99) mg/dL Crossmatch 07/03/20 Range/Units 06:47 RBC (4.30-5.90) m/uL Hgb (13.0-17.5) gm/dL Hct (39.0-53.0) % RDW (11.5-15.5) % Plt Count (150-450) k/uL Lymphocytes # (1.0-4.8) k/uL ABG pO2 (83-108) mmHg ABG Total CO2 (19-24) mmol/L POC Glucose (mg/dL) 131 H (75-99) mg/dL Crossmatch Microbiology - Last 24 Hours (Table) 07/01/20 00:05 Blood Culture - Preliminary Blood No Growth after 48 hours 06/30/20 23:54 Blood Culture - Preliminary Blood No Growth after 48 hours 06/30/20 17:29 Blood Culture - Preliminary Blood No Growth after 48 hours 06/30/20 17:29 Blood Culture - Preliminary Blood No Growth after 48 hours
[2020-07-03 15:23] LABS: African American GFR (CKD) 66.7 (60.0-200.0); Albumin 2.7 g/dL (3.80-4.90); Albumin/Globulin Ratio 1.59 (1.60-3.17); Anion Gap 10.4 mmol/L (4.00-12.00); BUN/Creat Ratio 38.33 Ratio (12.00-20.00); Calcium 7.9 mg/dL (8.7-10.3); Carbon Dioxide 21.6 mmol/L (21.6-31.8); Globulin 1.7 g/dL (1.6-3.3); Non-African American GFR(CKD) 57.6 (60.0-200.0); Potassium 4.6 mmol/L (3.5-5.5); Total Bilirubin 1.1 mg/dL (0.2-1.2); Total Protein 4.4 g/dL (6.2-8.2)
[2020-07-03 17:15] LABS: Glucose,Whole Blood 155 mg/dL (75-99)
[2020-07-03 20:17] LABS: Glucose,Whole Blood 135 mg/dL (75-99)
[2020-07-03] MEDS ORDERED: AMIODARONE 200 MG TAB PO SCH (21:00)
[2020-07-03] MEDS: ATORVASTATIN 20 MG TAB PO SCH (21:01)
[2020-07-03] MEDS: MELATONIN 3 MG TABLET PO SCH (21:01)
[2020-07-03] MEDS: INSULIN DETEMIR (LEVEMIR) 100 UNIT/ML SYR SQ SCH (21:07)
[2020-07-04] MEDS: ALPRAZolam 0.5 MG TAB PO PRN ×2 (02:29→13:25)
[2020-07-04] MEDS: ACETAMINOPHEN TAB 325 MG TAB PO PRN (04:20)
[2020-07-04] MEDS ORDERED: DEXTROSE 5% IN WATER 100 ML with AMIODARONE 150 MG IV ONE (07:06)
[2020-07-04] MEDS ORDERED: AMIODARONE 360 MG in DEXTROSE 5% IN WATER 200 ML IV ONE ×2 (07:06)
--- NOTE | 2020-07-04 07:33 | P.EN ---
A team called for hypotension and tachycardia 79 year old male with lymphoma on chemo, bactremia with positive blood culture for gram positive cocci on cefipime and vanco, systolic CHF with LVEF 20-25% patient developed severe hypotension this AM , with tachycardia, he is confused with altered mental status , but awake. lungs diminished breath sounds at lung basis peripheral edema +1 bilaterally awake , but confused EKG showed supraventricular tachycardia BP 60-low 70 systolic , heart rate 130-140s, oxygen sat 99% on 3 LPM assessement severe septic shock , bactremia supraventricular tachycardia , irregular on the support services tech most likely afib with RVR GI lymphoma plan transfer to ICU give 150 mg bolus amiodarone , then continue with amiodarone infusion 1mg / min 500 cc bolus normal saline continue with antibiotics if blood pressure remains low , start levophed 40 minutes were spent in critical care time in the care of this patient
[2020-07-04 08:34] LABS: ALT 31 U/L (4-49); AST 23 U/L (17-59); African American GFR (CKD) 60 (>60 ml/min/1.73 sqM); Albumin 2.7 g/dL (3.5-5.0); Albumin/Globulin Ratio 1.4; Alkaline Phosphatase 76 U/L (38-126); Anion Gap 10 mmol/L; Blood Urea Nitrogen 39 mg/dL (9-20); Calcium 8.1 mg/dL (8.4-10.2); Carbon Dioxide 20 mmol/L (22-30); Chloride 105 mmol/L (98-107); Globulin 1.9 g/dL; Glucose 178 mg/dL (74-99); Non-African American GFR(CKD) 52 (>60 ml/min/1.73 sqM); Potassium 4.6 mmol/L (3.5-5.1); Sodium 135 mmol/L (137-145); Total Bilirubin 1.8 mg/dL (0.2-1.3); Total Protein 4.6 g/dL (6.3-8.2)
[2020-07-04 08:35] LABS: Anisocytosis Slight; Basophils % (A) 0 %; Eosinophils % (A) 0 %; HCT 23.9 % (39.0-53.0); HGB 7.7 gm/dL (13.0-17.5); Hypochromasia Slight; Lymphocytes # (A) 0.2 k/uL (1.0-4.8); Lymphocytes % (A) 2 %; MCH 30.7 pg (25.0-35.0); MCHC 32.3 g/dL (31.0-37.0); Macrocytosis Slight; Mean Platelet Volume 10.7; Monocytes # (A) 0.4 k/uL (0-1.0); Monocytes % (A) 6 %; Neutrophils # (A) 6.4 k/uL (1.3-7.7); Neutrophils % (A) 91 %; Poikilocytosis Slight; RBC 2.52 m/uL (4.30-5.90); RDW 18.2 % (11.5-15.5); WBC 7.1 k/uL (3.8-10.6)
[2020-07-04 08:39] LABS: Platelet Count 38 k/uL (150-450)
[2020-07-04] MEDS: NOREPINEPHRINE 4 MG in SODIUM CHLORIDE 0.9% 250 ML IV SCH ×6 (08:55→23:00)
[2020-07-04] MEDS ORDERED: DIGOXIN 250 MCG/ML 2 ML AMP IVP ONE (09:31)
[2020-07-04] MEDS ORDERED: VANCOMYCIN IV PER PHARMACY 1 EACH MISC MISCELLANE PRN (10:07)
--- NOTE | 2020-07-04 11:16 | P.PN ---
Subjective Progress Note Date: 07/04/20 (Critical care time 35 minutes) Principal diagnosis: Right lower lobe pneumonia Severe pancytopenia Leukopenia Anemia Thrombocytopenia GI lymphoma 07/04/2020, patient seen eval examined during the rounds respiratory status remains marginal, patient had a rapid response due to hypotension and tachycardia earlier today now is in ICU, on 3 L oxygen, hemodynamic status very marginal systolic blood pressure 70/44, patient has a A. fib with RVR have been on amiodarone as well, for resuscitation patient has been started on levo fed, also albumin is being given, patient is also started on midodrine, labs reviewed white cell count is up to 7100 hemoglobin and hematocrit is 7.723, platelet count is 38,000, potassium is 4.6, BUN/creatinine is 39 and 1.32, when go mycin trough is 31.8, BNP is 39,200, patient with atrial fibrillation RVR cardiovascular service also following the patient 07/03/2020, patient seen eval examined during the rounds labs reviewed medications reviewed, patient is sitting upright on the chair her respiratory status slightly better, on 2 L oxygen, intermittent cough is present dry nonproductive, patient is status post transfusion 1 unit packed RBC oxygen saturation improved from 97%, chest x-ray continued showing a right-sided infiltrate versus edema patient remains on vancomycin along with the cefapime, but cultures preliminary positive for gram-positive cocci final ID is pending, globin improved to 8.2, at cell count is 4600, 07/02/2020, patient seen eval examined during the rounds labs reviewed medications reviewed care plan discussed, patient very somnolent but arousable, on 3 L oxygen, hemoglobin is down to 6.4 patient is to get unit of packed RBC, patient is scheduled for duplex ultrasound the lower extremity rule out DVT as they appear and looked more edematous, will order arterial blood gas as well as along with chest x-ray, WBC count is up to 1400, potassium is 3.8, BUN/creatinine 47 and 1.11, bilateral lower extremity negative for DVT, chest x- ray and ABG pending 07/01/2020, patient is being eval by cardiovascular services due to asymptomatic run of nonsustained ventricular tachycardia also intermittent SVT, patient remains afebrile hemodynamic status is marginal remains on broad-spectrum antibiotics, cell count is slightly up to 700, hemoglobin is 7.2, sodium 128, BUN/creatinine 47/1.23, This is a pleasant 79-year-old male who was diagnosed as GI lymphoma has been getting chemotherapy also has significant history of coronary artery disease dyslipidemia patient came into the hospital with the his daughter due to generalized weakness has been progressive for the last 3 days, patient has been getting chemotherapy, lately patient is having low blood pressure tiredness fatigue anxiety and apprehension, blood pressure in the ER noted to be 97/60, labs were significant for severe pancytopenia with neutropenia white cell count is only 200 hemoglobin 7.2 and platelet count of 26, patient noted to be on very high-dose prednisone of 120 mg his covert test is negative, patient chest x-ray is positive for bilateral small pleural effusion and right lower lobe pneumonia and stable right central venous catheter Objective - Vital Signs Vital signs: Vital Signs Temp 97.3 F L 07/04/20 05:00 Pulse 65 07/04/20 05:00 Resp 18 07/04/20 05:00 BP 70/44 07/04/20 07:41 Pulse Ox 96 07/04/20 05:00 Intake & Output 07/03/20 07/04/20 07/04/20 18:59 06:59 18:59 Intake Total 970 47.063 Output Total 351 Balance -351 970 47.063 Intake: Intake, IV Titration 650 47.063 Amount Albumin Human 25% 50 ml 100 In Empty Bag 1 bag @ 50 mls/hr IVPB Q1H [facility] Rx#: [id number] Cefepime 1 gm In Sodium 50 Chloride 0.9% 50 ml @ 12. 5 mls/hr IVPB Q12HR [facility] Rx#:[id number] Norepinephrine 4 mg In 47.063 Sodium Chloride 0.9% 250 ml @ 0.05 MCG/KG/MIN 19. 183 mls/hr IV [id number] [facility] Rx#:[id number] Vancomycin 2,000 mg In 500 Sodium Chloride 0.9% 500 ml 500 ml @ 167 mls/hr IVPB Q16H [facility] Rx#: [id number] Oral 320 Output: Urine 351 Other: Voiding Method Urinal Diaper Diaper # Voids 2 # Bowel Movements 1 - Exam - Constitutional General appearance: average body habitus, cooperative, mild to moderate generalized distress - EENT Eyes: EOMI, PERRLA, normal appearance - Respiratory Respiratory: bilateral: CTA, negative: diminished, dullness, rales, rhonchi, wheezing - Cardiovascular Rhythm: regular Heart sounds: normal: S1, S2 leg Peripheral Edema: bilateral: 1+ - Gastrointestinal General gastrointestinal: decreased bowel sounds, no distended, no hepatomegaly, normal bowel sounds, no organomegaly, no rigid, soft, no tenderness - Integumentary Integumentary: pale, rash - Neurologic Neurologic: CNII-XII intact - Musculoskeletal Musculoskeletal: generalized weakness - Psychiatric Psychiatric: A&O x's one to 2, - Labs CBC & Chem 7: 07/04/20 07:56 07/04/20 07:56 Labs: Abnormal Lab Results - Last 24 Hours (Table) 07/03/20 07/03/20 07/03/20 Range/Units 06:32 06:32 11:35 RBC (4.30-5.90) m/uL Hgb (13.0-17.5) gm/dL Hct (39.0-53.0) % RDW (11.5-15.5) % Plt Count (150-450) k/uL Lymphocytes # (1.0-4.8) k/uL Lymphocytes # (Manual) 0.05 L (1.0-4.8) k/uL Myelocytes # (Manual) 0.09 H (0) k/uL Sodium (137-145) mmol/L Carbon Dioxide (22-30) mmol/L BUN 46.0 H (9.0-27.0) mg/dL Creatinine (0.66-1.25) mg/dL Est GFR (CKD-EPI)NonAf 57.6 L (60.0-200.0) BUN/Creatinine Ratio 38.33 H (12.00-20.00) Ratio Glucose 123 H (70-110) mg/dL POC Glucose (mg/dL) 148 H (75-99) mg/dL Calcium 7.9 L (8.7-10.3) mg/dL Total Bilirubin (0.2-1.3) mg/dL Total Protein 4.4 L (6.2-8.2) g/dL Albumin 2.70 L (3.80-4.90) g/dL Albumin/Globulin Ratio 1.59 L (1.60-3.17) g/dL Vancomycin Trough ug/mL 07/03/20 07/03/20 07/04/20 Range/Units 17:14 20:15 07:56 RBC (4.30-5.90) m/uL Hgb (13.0-17.5) gm/dL Hct (39.0-53.0) % RDW (11.5-15.5) % Plt Count (150-450) k/uL Lymphocytes # (1.0-4.8) k/uL Lymphocytes # (Manual) (1.0-4.8) k/uL Myelocytes # (Manual) (0) k/uL Sodium (137-145) mmol/L Carbon Dioxide (22-30) mmol/L BUN (9.0-27.0) mg/dL Creatinine (0.66-1.25) mg/dL Est GFR (CKD-EPI)NonAf (60.0-200.0) BUN/Creatinine Ratio (12.00-20.00) Ratio Glucose (70-110) mg/dL POC Glucose (mg/dL) 155 H 135 H (75-99) mg/dL Calcium (8.7-10.3) mg/dL Total Bilirubin (0.2-1.3) mg/dL Total Protein (6.2-8.2) g/dL Albumin (3.80-4.90) g/dL Albumin/Globulin Ratio (1.60-3.17) g/dL Vancomycin Trough 31.8 H* ug/mL 07/04/20 07/04/20 Range/Units 07:56 07:56 RBC 2.52 L (4.30-5.90) m/uL Hgb 7.7 L (13.0-17.5) gm/dL Hct 23.9 L (39.0-53.0) % RDW 18.2 H (11.5-15.5) % Plt Count 38 L (150-450) k/uL Lymphocytes # 0.2 L (1.0-4.8) k/uL Lymphocytes # (Manual) (1.0-4.8) k/uL Myelocytes # (Manual) (0) k/uL Sodium 135 L (137-145) mmol/L Carbon Dioxide 20 L (22-30) mmol/L BUN 39 H (9.0-27.0) mg/dL Creatinine 1.32 H (0.66-1.25) mg/dL Est GFR (CKD-EPI)NonAf (60.0-200.0) BUN/Creatinine Ratio (12.00-20.00) Ratio Glucose 178 H (70-110) mg/dL POC Glucose (mg/dL) (75-99) mg/dL Calcium 8.1 L (8.7-10.3) mg/dL Total Bilirubin 1.8 H (0.2-1.3) mg/dL Total Protein 4.6 L (6.2-8.2) g/dL Albumin 2.7 L (3.80-4.90) g/dL Albumin/Globulin Ratio (1.60-3.17) g/dL Vancomycin Trough ug/mL Microbiology - Last 24 Hours (Table) 06/30/20 23:54 Blood Culture - Preliminary Blood No Growth after 72 hours 06/30/20 17:29 Blood Culture - Preliminary Blood No Growth after 72 hours 06/30/20 17:29 Blood Culture - Preliminary Blood No Growth after 72 hours 07/01/20 00:05 Blood Culture Gram Stain - Preliminary Blood 07/01/20 00:05 Blood Culture - Final Blood Assessment and Plan Assessment: Hypertension A. fib with RVR Severe sepsis and septic shock Gram-positive bacteremia due to gram-positive cocci Altered mental status likely multifactorial Right lower lobe pneumonia Severe pancytopenia including anemia Leukopenia Hyponatremia Intermittent runs of ventricular tachycardia and PSVT Anemia Thrombocytopenia Diffuse large B cell GI lymphoma with recurrence involving rectum on RCEPP regime protocol per oncology Plan: IV amiodarone Vasopressors Albumin Midodrine Chest x-ray reviewed Status post Transfuse 1 unit of packed RBC Monitor observe labs closely Gentle rehydration Follow-up on blood culture results and reports Follow-up on Roth cultures urine culture and blood culture, Continue Broad-spectrum antibiotics with vancomycin pharmacy to dose and cephapime 1 g every 12 Further plan of care as per clinical response of the patient Long-term prognosis overall appears to be poor Time with Patient: Greater than 30
[2020-07-04] MEDS: METOPROLOL TARTRATE 12.5 MG TAB PO SCH (11:31)
[2020-07-04] MEDS: TAMSULOSIN 0.4 MG CAP.ER.24H PO SCH ×2 (11:31→21:19)
[2020-07-04] MEDS: PANTOPRAZOLE 40 MG TABLET PO SCH (11:31)
[2020-07-04] MEDS: metFORMIN 500 MG TAB PO SCH (11:31)
[2020-07-04] MEDS: MAGNESIUM OXIDE 400 MG TAB PO SCH (11:31)
[2020-07-04] MEDS: INSULIN ASPART (NovoLOG) 100 UNIT/ML VIAL SQ SCH ×4 (11:32→21:26)
[2020-07-04] MEDS: MIDODRINE 5 MG TAB PO SCH ×3 (11:32→18:14)
[2020-07-04] MEDS: ALBUMIN HUMAN 25% 50 ML in EMPTY BAG 1 BAG IVPB SCH ×2 (11:38→14:00)
[2020-07-04] MEDS: CEFEPIME 1 GM in SODIUM CHLORIDE 0.9% 50 ML IVPB SCH ×2 (11:40→21:19)
--- NOTE | 2020-07-04 12:05 | P.PN ---
Subjective Progress Note Date: 07/04/20 HISTORY OF PRESENT ILLNESS: This is a pleasant 79-year-old male. He has a history of hypertension, diabetes mellitus type 2, hyperlipidemia, questionable coronary artery disease per patient, mild lower extremity edema and lymphoma. He had prior history of lymphoma proximally years ago however has had recurrence and has been undergoing chemotherapy, last dose approximate 4 days ago. Patient has noticed increased lethargy especially last few days with fatigue. He was found to have pancytopenia with white blood cell count 0.7 today, hemoglobin 7.2, platelets 199. He was also noted to have a low sodium of 128, BUN 47, creatinine 1.2. He admits he has seen textile supervisor in the past however denies any history of coronary artery disease, stenting in the past. Patient is unsure if he is followed up in the office recently. Cardiology was consult that secondary to wide complex tachycardia. Patient had a 6 beat run of nonsustained ventricular tachycardia. He also had a 15 second wide-complex tachycardia however there is no change in axis and appeared to be his baseline left bundle-branch block with SVT at approximately 170 bpm on 07/01 at 1:00am. Patient denies any symptoms of feeling lightheaded or dizzy. He denies any recent syncopal or near syncopal episodes. He denies any chest pain or pressure. EKG was repeated which shows normal sinus rhythm, left bundle branch block. 07/02 Echocardiogram revealed left ventricular systolic function severely impaired with EF between 20-25%, global hypokinesis, mild aortic stenosis with a peak/mean gradient of 20 mmHg/10 mmHg, mild to moderate mitral regurgitation, mild tricuspid regurgitation, mild pulmonary hypertension, right ventricular systolic pressure 44 mmHg Dopplers of the bilateral lower extremities report reveals negative for DVT. 07/03/2020: Patient seen and examined at bedside, sitting up in the chair. Appears weak and frail. Patient's hemoglobin 6.4 yesterday and received 1 unit PRBCs. Blood pr essure 90/55, heart rate 93, afebrile, maintaining oxygen saturations 98% on room air. Laboratory data reviewed WBC 1.4, hemoglobin 6.4, platelets 35, sodium 1:30, potassium 3.8, serum creatinine 1.11, BUN 47, magnesium 2.1. Telemetry reviewed, patient is in sinus mechanism HR 80-90s, patient continues to have episodes of non-sustained ventricular tachycardia. Had an 2 episodes of SVT last night HR 100 at 8:45pm and 10:00pm. Laboratory reviewed, WBC 4.6, hemoglobin 8.2, platelets are 39, BMP not resulted today. 07/04/2020 A-team called this morning secondary to hypotension and tachycardia. Patient was transferred to the ICU. Patient currently on levophed. Telemetry reveals atrial fibrillation with uncontrolled rates. WBC 7.1. Hemoglobin 7.7. Platelet count 38. BUN 39. Creatinine 1.32 PHYSICAL EXAM: VITAL SIGNS: Reviewed. GENERAL: Well-developed in no acute distress. NECK: Supple. No JVD or thyromegaly LUNGS: Respirations even and unlabored. Lungs essentially clear to auscultation bilaterally. HEART: Tachycardic. Irregular rate and rhythm. S1 and S2 heard. EXTREMITIES: Normal range of motion. No clubbing or cyanosis. Peripheral pulses intact. No lower extremity edema ASSESSMENT: Systolic Heart failure with reduced ejection fraction 20-25% New onset atrial fibrillation with RVR Wide complex tachycardia, most likely ventricular Episodes of nonsustained ventricular tachycardia, patient is asymptomatic Episodes of SVT with baseline left bundle branch block, asymptomatic Right lower lobe pneumonia seen on chest x-ray- pulmonary following, patient being treated with vancomycin and cefepime Diabetes mellitus type 2 Hypertension Hyperlipidemia Reported history of coronary artery disease, no stenting per patient Pancytopenia related to chemotherapy Lymphoma PLAN: Wean levophed as tolerated Continue oral metoprolol Continue telemetry monitoring Continue Amio drip Give Digoxin 250mcg x 1 dose No anticoagulation for atrial fibrillation due to thrombocytopenia Further recommendations pending patient course Nurse practitioner note has been reviewed by physician. Signing provider agrees with the documented findings, assessment, and plan of care. Objective - Vital Signs Vital signs: Vital Signs Temp 97.3 F L 07/04/20 05:00 Pulse 65 07/04/20 05:00 Resp 18 07/04/20 05:00 BP 70/44 07/04/20 07:41 Pulse Ox 96 07/04/20 05:00 Intake & Output 07/03/20 07/04/20 07/04/20 18:59 06:59 18:59 Intake Total 970 47.063 Output Total 351 Balance -351 970 47.063 Intake: Intake, IV Titration 650 47.063 Amount Albumin Human 25% 50 ml 100 In Empty Bag 1 bag @ 50 mls/hr IVPB Q1H [facility] Rx#: [id number] Cefepime 1 gm In Sodium 50 Chloride 0.9% 50 ml @ 12. 5 mls/hr IVPB Q12HR [facility] Rx#:[id number] Norepinephrine 4 mg In 47.063 Sodium Chloride 0.9% 250 ml @ 0.05 MCG/KG/MIN 19. 183 mls/hr IV .[id number] [facility] Rx#:[id number] Vancomycin 2,000 mg In 500 Sodium Chloride 0.9% 500 ml 500 ml @ 167 mls/hr IVPB Q16H [facility] Rx#: [id number] Oral 320 Output: Urine 351 Other: Voiding Method Urinal Diaper Diaper # Voids 2 # Bowel Movements 1 - Labs CBC & Chem 7: 07/04/20 07:56 07/04/20 07:56 Labs: Abnormal Lab Results - Last 24 Hours (Table) 07/03/20 07/03/20 07/03/20 Range/Units 06:32 06:32 17:14 RBC (4.30-5.90) m/uL Hgb (13.0-17.5) gm/dL Hct (39.0-53.0) % RDW (11.5-15.5) % Plt Count (150-450) k/uL Lymphocytes # (1.0-4.8) k/uL Lymphocytes # (Manual) 0.05 L (1.0-4.8) k/uL Myelocytes # (Manual) 0.09 H (0) k/uL Sodium (137-145) mmol/L Carbon Dioxide (22-30) mmol/L BUN 46.0 H (9.0-27.0) mg/dL Creatinine (0.66-1.25) mg/dL Est GFR (CKD-EPI)NonAf 57.6 L (60.0-200.0) BUN/Creatinine Ratio 38.33 H (12.00-20.00) Ratio Glucose 123 H (70-110) mg/dL POC Glucose (mg/dL) 155 H (75-99) mg/dL Calcium 7.9 L (8.7-10.3) mg/dL Total Bilirubin (0.2-1.3) mg/dL Total Protein 4.4 L (6.2-8.2) g/dL Albumin 2.70 L (3.80-4.90) g/dL Albumin/Globulin Ratio 1.59 L (1.60-3.17) g/dL Vancomycin Trough ug/mL 07/03/20 07/04/20 07/04/20 Range/Units 20:15 07:56 07:56 RBC 2.52 L (4.30-5.90) m/uL Hgb 7.7 L (13.0-17.5) gm/dL Hct 23.9 L (39.0-53.0) % RDW 18.2 H (11.5-15.5) % Plt Count 38 L (150-450) k/uL Lymphocytes # 0.2 L (1.0-4.8) k/uL Lymphocytes # (Manual) (1.0-4.8) k/uL Myelocytes # (Manual) (0) k/uL Sodium (137-145) mmol/L Carbon Dioxide (22-30) mmol/L BUN (9.0-27.0) mg/dL Creatinine (0.66-1.25) mg/dL Est GFR (CKD-EPI)NonAf (60.0-200.0) BUN/Creatinine Ratio (12.00-20.00) Ratio Glucose (70-110) mg/dL POC Glucose (mg/dL) 135 H (75-99) mg/dL Calcium (8.7-10.3) mg/dL Total Bilirubin (0.2-1.3) mg/dL Total Protein (6.2-8.2) g/dL Albumin (3.80-4.90) g/dL Albumin/Globulin Ratio (1.60-3.17) g/dL Vancomycin Trough 31.8 H* ug/mL 07/04/20 Range/Units 07:56 RBC (4.30-5.90) m/uL Hgb (13.0-17.5) gm/dL Hct (39.0-53.0) % RDW (11.5-15.5) % Plt Count (150-450) k/uL Lymphocytes # (1.0-4.8) k/uL Lymphocytes # (Manual) (1.0-4.8) k/uL Myelocytes # (Manual) (0) k/uL Sodium 135 L (137-145) mmol/L Carbon Dioxide 20 L (22-30) mmol/L BUN 39 H (9.0-27.0) mg/dL Creatinine 1.32 H (0.66-1.25) mg/dL Est GFR (CKD-EPI)NonAf (60.0-200.0) BUN/Creatinine Ratio (12.00-20.00) Ratio Glucose 178 H (70-110) mg/dL POC Glucose (mg/dL) (75-99) mg/dL Calcium 8.1 L (8.7-10.3) mg/dL Total Bilirubin 1.8 H (0.2-1.3) mg/dL Total Protein 4.6 L (6.2-8.2) g/dL Albumin 2.7 L (3.80-4.90) g/dL Albumin/Globulin Ratio (1.60-3.17) g/dL Vancomycin Trough ug/mL Microbiology - Last 24 Hours (Table) 07/01/20 00:05 Blood Culture Gram Stain - Final Blood Blood Culture - Final Micrococcus species 06/30/20 23:54 Blood Culture - Preliminary Blood No Growth after 72 hours 06/30/20 17:29 Blood Culture - Preliminary Blood No Growth after 72 hours 06/30/20 17:29 Blood Culture - Preliminary Blood No Growth after 72 hours 07/01/20 00:05 Blood Culture - Final Blood
--- NOTE | 2020-07-04 13:35 | P.PN ---
Subjective Progress Note Date: 07/04/20 Hypotensive event and transfer to ICU this am. Objective - Vital Signs Vital signs: Vital Signs Temp 97.3 F L 07/04/20 05:00 Pulse 65 07/04/20 05:00 Resp 18 07/04/20 05:00 BP 70/44 07/04/20 07:41 Pulse Ox 96 07/04/20 05:00 Intake & Output 07/03/20 07/04/20 07/04/20 18:59 06:59 18:59 Intake Total 970 228.342 Output Total 351 Balance -351 970 228.342 Intake: Intake, IV Titration 650 228.342 Amount Albumin Human 25% 50 ml 100 In Empty Bag 1 bag @ 50 mls/hr IVPB Q1H [facility] Rx#: [id number] Cefepime 1 gm In Sodium 50 Chloride 0.9% 50 ml @ 12. 5 mls/hr IVPB Q12HR [facility] Rx#:[id number] Norepinephrine 4 mg In 228.342 Sodium Chloride 0.9% 250 ml @ 0.05 MCG/KG/MIN 19. 183 mls/hr IV .[id number] [facility] Rx#:[id number] Vancomycin 2,000 mg In 500 Sodium Chloride 0.9% 500 ml 500 ml @ 167 mls/hr IVPB Q16H [facility] Rx#: [id number] Oral 320 Output: Urine 351 Other: Voiding Method Urinal Diaper Diaper # Voids 2 # Bowel Movements 1 - Exam - Constitutional General appearance: Present: no acute distress - EENT Eyes: Present: EOMI ENT: Present: hearing grossly normal, normal oropharynx - Respiratory Respiratory: bilateral: rales - Cardiovascular Rhythm: regular Heart sounds: normal: S1, S2 - Gastrointestinal General gastrointestinal: Present: normal bowel sounds, soft - Integumentary Integumentary: Present: normal - Neurologic Neurologic: Present: CNII-XII intact - Musculoskeletal Musculoskeletal: Present: generalized weakness - Psychiatric Psychiatric Comment(s): lethargic, somewhat difficult for us. responds to commands appropriately. Recall and cognition significantly slow compared to baseline - Labs CBC & Chem 7: 07/04/20 07:56 07/04/20 07:56 Labs: Abnormal Lab Results - Last 24 Hours (Table) 07/03/20 07/03/20 07/03/20 Range/Units 06:32 17:14 20:15 RBC (4.30-5.90) m/uL Hgb (13.0-17.5) gm/dL Hct (39.0-53.0) % RDW (11.5-15.5) % Plt Count (150-450) k/uL Lymphocytes # (1.0-4.8) k/uL Sodium (137-145) mmol/L Carbon Dioxide (22-30) mmol/L BUN 46.0 H (9.0-27.0) mg/dL Creatinine (0.66-1.25) mg/dL Est GFR (CKD-EPI)NonAf 57.6 L (60.0-200.0) BUN/Creatinine Ratio 38.33 H (12.00-20.00) Ratio Glucose 123 H (70-110) mg/dL POC Glucose (mg/dL) 155 H 135 H (75-99) mg/dL Calcium 7.9 L (8.7-10.3) mg/dL Total Bilirubin (0.2-1.3) mg/dL Total Protein 4.4 L (6.2-8.2) g/dL Albumin 2.70 L (3.80-4.90) g/dL Albumin/Globulin Ratio 1.59 L (1.60-3.17) g/dL Vancomycin Trough ug/mL 07/04/20 07/04/20 07/04/20 Range/Units 07:56 07:56 07:56 RBC 2.52 L (4.30-5.90) m/uL Hgb 7.7 L (13.0-17.5) gm/dL Hct 23.9 L (39.0-53.0) % RDW 18.2 H (11.5-15.5) % Plt Count 38 L (150-450) k/uL Lymphocytes # 0.2 L (1.0-4.8) k/uL Sodium 135 L (137-145) mmol/L Carbon Dioxide 20 L (22-30) mmol/L BUN 39 H (9.0-27.0) mg/dL Creatinine 1.32 H (0.66-1.25) mg/dL Est GFR (CKD-EPI)NonAf (60.0-200.0) BUN/Creatinine Ratio (12.00-20.00) Ratio Glucose 178 H (70-110) mg/dL POC Glucose (mg/dL) (75-99) mg/dL Calcium 8.1 L (8.7-10.3) mg/dL Total Bilirubin 1.8 H (0.2-1.3) mg/dL Total Protein 4.6 L (6.2-8.2) g/dL Albumin 2.7 L (3.80-4.90) g/dL Albumin/Globulin Ratio (1.60-3.17) g/dL Vancomycin Trough 31.8 H* ug/mL Microbiology - Last 24 Hours (Table) 07/03/20 10:59 Blood Culture - Preliminary Blood No Growth after 24 hours 07/01/20 00:05 Blood Culture Gram Stain - Final Blood Blood Culture - Final Micrococcus species 06/30/20 23:54 Blood Culture - Preliminary Blood No Growth after 72 hours 06/30/20 17:29 Blood Culture - Preliminary Blood No Growth after 72 hours 06/30/20 17:29 Blood Culture - Preliminary Blood No Growth after 72 hours Assessment and Plan Plan: Assessment and Plan Weakness - Likely from chemo - Components of possible CHF and pneumonia. - Chemotherapy-related side effects are expected to improve as the patient gets further out from chemotherapy. - Cont cefepime for treatment of pneumonia. - He is also being treated for possible CHF. Cardiology is on the case. - Monitor blood counts and transfuse to keep hemoglobin greater than 7. - Monitor patient, and start physical therapy as soon as patient appears to be able Pancytopenia - Monitor counts and transfuse to keep hemoglobin greater than 7, and platelets greater than 10. - If patient is actively bleeding can transfuse if platelets are less than 40. - Patient's WBC is low but ANC is actually greater than 1000. He already received Neulasta, on 06/26/20. Diffuse large B cell lymphoma - Restaging PET soon Plan: - DIC work-up - Re-clark culture - CHeck Igg Level for possible immunoglob Physician Attest: I have completed the full history and physical, developed the above impression and plan. Agree with above, dictated as a scribe
--- NOTE | 2020-07-04 14:07 | P.PN ---
Subjective Progress Note Date: 07/04/20 HISTORY OF PRESENT ILLNESS This is a 79-year-old male with a past medical history of lymphoma, coronary artery disease, diabetes, dyslipidemia. Patient presented to the emergency room for generalized weakness. Per patient he has last chemotherapy 3 days ago for his lymphoma, he follows with Dr. Jerry. Patient reports loss of appetite, diarrhea but seems to be chronic, denies any nausea or vomiting, or abdominal pain. Upon arrival to the emergency department, blood pressure a little on the lower side on he is afebrile 98.4, heart rate of 99, he is 97% on room air. Laboratory values showed WBC of 0.2, hemoglobin of 7.2, platelet count of 26 sodium 1:30, BUN 42, creatinine 1.06. COVID testing was negative. Patient admitted to the hospital with oncology on consult. Patient noted to have +1 edema IV fluids turned down to 75 miles per hour. 07/01: Patient evaluated this morning, patient is resting comfortably in bed. Last night patient was noted to have a run of nonsustained ventricular tachycardia. He had a repeat EKG which showed normal sinus rhythm with left bundle branch block. Cardiology on consult, will obtain an echocardiogram. Stat magnesium resulted back at 1.8, replacement has been given. Actos has also been discontinued for his arrhythmia and also concern for congestive heart failure, Lantus 10 units ordered. Repeat chest x-ray showed congestive heart failure with small pleural effusions with right lower lobe pneumonia. Patient was ordered 1 unit of packed red blood cells, unable to complete due to the run of V. tach and concern for congestive heart failure. Patient continues on vancomycin and cefepime. Cultures are still pending. Patient noted to retain urine, straight cathed last night, will obtain postvoid residual and add Flomax. Blood pressure has been running on the lower side, midodrine 10 mg 3 times a day has been ordered. Laboratory values WBC 0.7, hemoglobin 7.2, platelet 29, sodium 128, BUN 47, creatinine 1.23, repeat magnesium 2.2 07/02: She continues to have significant weakness and was up to the chair yesterday. He did not have any lightheadedness or dizziness. He states he is eating a little bit but continues to have poor appetite. Ultrasound of bilateral lower extremities added. Patient is not sleeping very well and melatonin will be added. Oncology ordered 1 dose of IV Lasix this morning. He is maintained on cefepime and vancomycin per pulmonary medicine. Patient has been afebrile, heart rate 88, blood pressure 92/62, pulse ox 90% on room air. Repeat blood work reveals WBC 1.4, hemoglobin 6.4, platelet count 35. Sodium 130, potassium 3.8, chloride 100, CO2 25, BUN 47 and creatinine 1.11. Blood sugar running between 111 and 141. Calcium 7.7. Liver function tests were normal. Echocardiogram reveals EF of 20-25%, mild concentric left ventricular hypertrophy, mild aortic stenosis, [id number] mitral regurgitation, mild tricuspid regurgitation, mild pulmonary hypertension. Ultrasound of the bilateral lower extremities negative for DVT. Lopressor 12.5 mg daily has been added. Patient to be transfused of 1 unit of packed RBCs today. Patient is followed by multiple consultants including oncology, pulmonary medicine, cardiology. 07/03: Patient is seen today sitting up in a recliner. Patient was to person maximum assist with physical therapy. He has been afebrile, heart rate 97, blood pressure 85/49, pulse ox 95% on 2 L. Medications reviewed and no other me dications can be adjusted for hypotension. Repeat blood work reveals WBC 4.6, hemoglobin 8.2, platelet count 39. Blood culture is showing gram-positive cocci from July 01. Patient is on vancomycin and repeat blood cultures been ordered. Repeat chest x-ray from yesterday reveals CHF exacerbation and/or fluid overload as there is moderate central vascular congestion and interstitial edema. No sig nificant change from previous. One dose of IV Lasix 40 mg ordered repeat blood work ordered for tomorrow. 07/04: A-Team was called this morning for hypotension and tachycardia as well as worsening confusion. EKG was supraventricular tachycardia with heart rate in the 130s and 140s with hypotension. Patient was transferred into the intensive care unit and is status post bolus of amiodarone currently on amiodarone drip and norepinephrine. Blood pressure remains low and vasopressor being titrated. He has been afebrile. Telemetry is atrial fibrillation with RVR. Cardiology has ordered 1 dose of digoxin 250 g and he is continued on amiodarone drip. Repeat blood work reveals WBC 7.1, hemoglobin 7.7, platelet count 38. Sodium 135, potassium 4.6, chloride 105, CO2 20, BUN 39 creatinine 1.32. Blood sugars running between 135 and 178. ProBNP 39,200. Patient is not currently on anticoagulation due to thrombocytopenia. Prognosis is guarded. Noted the patient is a full code. Family has decided on hospice care and informational meeting has been arranged. REVIEW OF SYSTEMS Unable to obtain due to mental status PHYSICAL EXAMINATION Gen: This is a 79-year-old male patient. He is resting in bed and appears to be comfortable at rest. HEENT: Head is atraumatic, normocephalic. Pupils equal, round. Sclerae is anicteric. Conjunctiva pale. NECK: Supple. No JVD. No lymphadenopathy. No thyromegaly. LUNGS: Few crackles at the bases. No wheezes. No intercostal retractions. HEART: Regular rate and rhythm. No murmur. ABDOMEN: Soft. Bowel sounds are present. No masses. No tenderness. EXTREMITIES: The lateral 1+ left greater than right lower extremity pedal edema. No calf tenderness. NEUROLOGICAL: Patient is lethargic. ASSESSMENT AND PLAN 1. Generalized weakness and dehydration secondary to chemotherapy and lymphoma. IV hydration discontinued due to fluid overload, Zofran as needed along with Ma rinol 5 mg twice a day, Ensure 2. Right lower lobe pneumonia. Continue cefepime 1 g IV piggyback every 12 hours and vancomycin, pharmacy dosing. 3. Hyponatremia. Continue to monitor. 4. Intermittent runs of ventricular tachycardia and PSVT. Cardiology consult appreciated. 5. 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 Oncology consult appreciated. 6. History of lymphoma. Oncology on consult. 7. Pancytopenia secondary from chemotherapy and lymphoma. Continue to monitor CBC. Patient be transfused 1 unit of packed RBCs today. 8. Chronic systolic heart failure. Consult with cardiology appreciated. Patient started on metoprolol tartrate 12.5 mg daily with parameters. 9. Diabetes mellitus type II with hyperglycemia. Will continue with Accu-Cheks with NovoLog sliding scale, continue Tradjenta 5 mg, metformin 1000 mg daily, Actos discontinued, and Lantus 10 units ordered 10. History of coronary artery disease. Continue Lipitor 20 mg daily, blood pressure medication on hold due to hypotension 11. Hypotension secondary to dehydration. Home blood pressure medication currently on hold, Midodrine 10 mg 3 times a day 12. Hyperlipidemia. On Lipitor 20 mg daily 13. Laura infection to bilateral groin. On nystatin cream twice a day 14. Urinary retention. Will obtain post void residual and add Flomax 0.4 mg daily 15. Hypomagnesemia. Replacement given, repeat magnesium level tomorrow 16. Blood culture with gram-positive cocci, possible contamination. Continue vancomycin, repeat blood culture. 17. A. fib with RVR, paroxysmal atrial fibrillation. Continue amiodarone drip, status post amiodarone bolus and digoxin IV push 1. No anticoagulation due to thrombocytopenia. 18. Septic shock requiring vasopressors. Patient has been transferred to the intensive care unit 19. DVT prophylaxis. Pneumatic compression stockings 20. GI prophylaxis pantoprazole DISCHARGE PLAN [facility] informational meeting scheduled by continuous pillowcase cutter Impression and plan of care have been directed as dictated by the signing physician. Kira Byrd nurse practitioner acting as scribe for signing physician. Objective - Vital Signs Vital signs: Vital Signs Temp 97.3 F L 07/04/20 05:00 Pulse 65 07/04/20 05:00 Resp 18 07/04/20 05:00 BP 70/44 07/04/20 07:41 Pulse Ox 96 07/04/20 05:00 Intake & Output 07/03/20 07/04/20 07/04/20 18:59 06:59 18:59 Intake Total 970 Output Total 351 Balance -351 970 Intake: Intake, IV Titration 650 Amount Albumin Human 25% 50 ml 100 In Empty Bag 1 bag @ 50 mls/hr IVPB Q1H [facility] Rx#: [id number] Cefepime 1 gm In Sodium 50 Chloride 0.9% 50 ml @ 12. 5 mls/hr IVPB Q12HR [facility] Rx#:[id number] Vancomycin 2,000 mg In 500 Sodium Chloride 0.9% 500 ml 500 ml @ 167 mls/hr IVPB Q16H [facility] Rx#: [id number] Oral 320 Output: Urine 351 Other: Voiding Method Urinal Diaper Diaper # Voids 2 # Bowel Movements 1 - Labs CBC & Chem 7: 07/04/20 07:56 07/04/20 07:56 Labs: Abnormal Lab Results - Last 24 Hours (Table) 07/03/20 07/03/20 07/03/20 Range/Units 06:32 06:32 11:35 Lymphocytes # (Manual) 0.05 L (1.0-4.8) k/uL Myelocytes # (Manual) 0.09 H (0) k/uL BUN 46.0 H (9.0-27.0) mg/dL Est GFR (CKD-EPI)NonAf 57.6 L (60.0-200.0) BUN/Creatinine Ratio 38.33 H (12.00-20.00) Ratio Glucose 123 H (70-110) mg/dL POC Glucose (mg/dL) 148 H (75-99) mg/dL Calcium 7.9 L (8.7-10.3) mg/dL Total Protein 4.4 L (6.2-8.2) g/dL Albumin 2.70 L (3.80-4.90) g/dL Albumin/Globulin Ratio 1.59 L (1.60-3.17) g/dL 07/03/20 07/03/20 Range/Units 17:14 20:15 Lymphocytes # (Manual) (1.0-4.8) k/uL Myelocytes # (Manual) (0) k/uL BUN (9.0-27.0) mg/dL Est GFR (CKD-EPI)NonAf (60.0-200.0) BUN/Creatinine Ratio (12.00-20.00) Ratio Glucose (70-110) mg/dL POC Glucose (mg/dL) 155 H 135 H (75-99) mg/dL Calcium (8.7-10.3) mg/dL Total Protein (6.2-8.2) g/dL Albumin (3.80-4.90) g/dL Albumin/Globulin Ratio (1.60-3.17) g/dL Microbiology - Last 24 Hours (Table) 06/30/20 23:54 Blood Culture - Preliminary Blood No Growth after 72 hours 06/30/20 17:29 Blood Culture - Preliminary Blood No Growth after 72 hours 06/30/20 17:29 Blood Culture - Preliminary Blood No Growth after 72 hours 07/01/20 00:05 Blood Culture Gram Stain - Preliminary Blood 07/01/20 00:05 Blood Culture - Final Blood
[2020-07-04 15:15] LABS: D-Dimer 3.32 mg/L FEU (<0.60); INR 1.5 (<1.2); Partial Thromboplastin Time 31.8 sec (22.0-30.0); Prothrombin Time 14.8 sec (9.0-12.0)
[2020-07-04] MEDS: VANCOMYCIN 2,000 MG in SODIUM CHLORIDE 0.9% 500 ML 500 ML IVPB SCH (15:37)
[2020-07-04 16:24] LABS: Glucose,Whole Blood 192 mg/dL (75-99)
[2020-07-04] MEDS: LINAGLIPTIN 5 MG TABLET PO SCH (17:42)
[2020-07-04] MEDS: NYSTATIN 100,000UNIT/GM CREAM 30 GM TUBE TOPICAL SCH ×2 (18:07→21:20)
[2020-07-04 18:12] LABS: Glucose,Whole Blood 215 mg/dL (75-99)
[2020-07-04] MEDS: AMIODARONE 450 MG in DEXTROSE 5% IN WATER 250 ML IV SCH ×2 (18:16)
[2020-07-04 21:16] LABS: Glucose,Whole Blood 201 mg/dL (75-99)
[2020-07-04] MEDS: ATORVASTATIN 20 MG TAB PO SCH (21:19)
[2020-07-04] MEDS: INSULIN DETEMIR (LEVEMIR) 100 UNIT/ML SYR SQ SCH (21:25)
[2020-07-04] MEDS: MELATONIN 3 MG TABLET PO SCH (21:25)
[2020-07-05] MEDS: ALPRAZolam 0.5 MG TAB PO PRN (01:26)
[2020-07-05] MEDS: NOREPINEPHRINE 4 MG in SODIUM CHLORIDE 0.9% 250 ML IV SCH ×3 (01:26→06:00)
[2020-07-05 05:10] LABS: Calcium 8.4 mg/dL (8.4-10.2); Potassium 5.3 mmol/L (3.5-5.1)
[2020-07-05 05:15] LABS: Vancomycin,Random 22.9 ug/mL
[2020-07-05 05:17] LABS: Anisocytosis Slight; HCT 30.6 % (39.0-53.0); HGB 10.5 gm/dL (13.0-17.5); MCH 32.3 pg (25.0-35.0); MCHC 34.3 g/dL (31.0-37.0); MCV 94.2 fL (80.0-100.0); Macrocytosis Slight; Mean Platelet Volume 9.6; Poikilocytosis Slight; RBC 3.25 m/uL (4.30-5.90); RDW 17.8 % (11.5-15.5); WBC 15.7 k/uL (3.8-10.6)
[2020-07-05 05:22] LABS: Platelet Count 83 k/uL (150-450)
[2020-07-05 05:57] LABS: Band Neutrophils % 6 %; Lymphocytes # (M) 0.79 k/uL (1.0-4.8); Monocytes # (M) 0.94 k/uL (0-1.0); Neutrophils % (M) 83 %; Nucleated Red Blood Cells 0 /100 WBC (0-0); Total Cells Counted 100
[2020-07-05 07:10] LABS: Glucose,Whole Blood 181 mg/dL (75-99)
[2020-07-05] MEDS: INSULIN ASPART (NovoLOG) 100 UNIT/ML VIAL SQ SCH (07:24)
--- NOTE | 2020-07-05 08:52 | CDI ---
Documentation Clarification Form Date: 07/05/2020 08:05:51 AM From: Salome Elam RN, CCDS Admit Date: 06/30/2020 11:01:00 AM Patient Name: Vick Casey Visit Number: [id number] Discharge Date: ATTENTION: The Clinical Documentation Specialists (CDI) and [facility] Coding Staff appreciate your assistance in clarifying documentation. Please respond to the clarification below the line at the bottom and electronically sign. The CDI & [facility] Coding staff will review the response and follow-up if needed. Please note: Queries are made part of the Legal Health Record. If you have any questions, please contact the author of this message via ITS. Dr. Sangeetha Katz Pneumonia is documented in progress notes starting on 06/30/20. Additional clarification regarding the type of pneumonia is requested. History/Risk Factors: Diffuse large B-cell lymphoma, Diabetes Mellitus, Clinical Indicators: 79-year-old male with complaints of generalized weakness. 06/30 Vital signs: 97/61 99 18 98.4 97 % RA 06/30 WBC/Left shift: 0.5; HGB 7.7, HCT 23.4, NA+ 130, Lactic acid 2.6 06/30 Chest X-ray: bilateral small pleural effusions and right lower lobe pneumonia (per pulmonary progress note on 06/30 with continued documentation) 07/01 Blood culture: Gram-positive cocci 07/03 Blood culture: Repeat pending 07/01 (pulmonary) Lung/Breathing assessment: bilateral: CTA, Treatment: Vancomycin 2,000MG IV Q 16 HR (Pharm to dose) Cefepine HCL 1 GM Q 12 HR .9NS 1,000 Bolus (06/29) Monitor O2 sat's titrate Please clarify the type of pneumonia, if known: [ ] Gram Positive Bacterial Pneumonia [ ] Gram Negative Bacterial Pneumonia [ ] Other bacteria (please specify) [ ] Other, please specify [ ] Unable to determine (Template Last Revised: April 2020) MTDD
[2020-07-05] MEDS: AMIODARONE 450 MG in DEXTROSE 5% IN WATER 250 ML IV SCH ×2 (09:29)
[2020-07-05] MEDS: CEFEPIME 1 GM in SODIUM CHLORIDE 0.9% 50 ML IVPB SCH (09:34)
--- NOTE | 2020-07-05 09:35 | CDI ---
Documentation Clarification Form Date: 07/05/2020 08:55:06 AM From: Salome Elam RN, CCDS Admit Date: 06/30/2020 11:01:00 AM Patient Name: Vick Casey Visit Number: [id number] Discharge Date: ATTENTION: The Clinical Documentation Specialists (CDI) and [facility] Coding Staff appreciate your assistance in clarifying documentation. Please respond to the clarification below the line at the bottom and electronically sign. The CDI & [facility] Coding staff will review the response and follow-up if needed. Please note: Queries are made part of the Legal Health Record. If you have any questions, please contact the author of this message via ITS. Dr. Sangeetha Katz The patient presented with weakness, hypotension, decreased WBC, with chest x- ray on admission positive for pneumonia. On 07/04 severe sepsis with septic shock is documented. Additional clarification regarding the etiology/cause of clinical indicators is requested. History/Risk Factors: Diffuse large B-cell lymphoma, Diabetes Mellitus, Coronary artery disease, Hypertension Clinical Indicators: 79-year-old male with complaints of generalized weakness with history of diffuse large B-cell lymphoma with current treatment of chemotherapy. He has poor oral intake status post recent chemotherapy. Chest x- ray positive for pneumonia on admission. 06/20 WBC: 0.5 HGB 7.2, PLT 26, BUN 42, and CR 1.06 06/30 Lactic acid: 2.6 07/01 Blood culture: Gram-positive cocci 07/03 Blood culture: Repeat pending 06/30- Not detected Vitals signs: on admission: Vital signs: 97/61 99 18 98.4 97 % RA 07/04 A-team called for hypotension and tachycardia worsening confusion. EKG supraventricular tachycardia with heart rate in the 130s-140s with hypotension, blood pressure 72/51 heart rate 131 resp. 20. Treatment: Vancomycin 2,000MG IV Q 16 HR (Pharm to dose) Cefepime HCL 1 GM Q 12 HR .9NS 1,000 Bolus (06/29) Monitor O2 sat's titrate In your professional opinion, please clarify if these findings signify one of the following conditions: [ ] Sepsis POA [ ] Sepsis, Not POA [ ] Other, please specify [ ] Unable to determine SIRS Criteria: 2 or more of the following may indicate SIRS -Temperature < 96.8F (36C) or > 101.0F (38.3C) -Heart Rate > 90 bpm -Respiratory Rate > 20 breaths/min or PaCO2 < 32 mmHg -White Blood Cell Count > 12,000 or < 4,000 cells/mm3 or > 10% bands (Template Last Reviewed: March 2020) Progress Note 07/05/2020 - PRELIMINARY (1) ASSESSMENT AND PLAN : 2.Right lower lobe pneumonia with sepsis, present on admission.Continue cefepime 1 g IV piggyback every 12 hours and vancomycin, pharmacy dosing. MTDD
--- NOTE | 2020-07-05 10:29 | P.PN ---
Subjective Progress Note Date: 07/05/20 Principal diagnosis: Right lower lobe pneumonia Severe pancytopenia Leukopenia Anemia Thrombocytopenia GI lymphoma 07/05/2020, patient seen eval examined during the rounds labs reviewed medications reviewed, care plan discussed with the staff at length, patient remains hypotensive remains on vasopressors, somnolent and poorly responsive no urine output overnight, patient is being considered for conservative management per family, patient is no code, family considering hospice down the road, patient continued to have A. fib with RVR, on amiodarone drip, heart rate is 130 to 140, white cell count is 15,000, patient was 5.3, BUN/creatinine of 48 and 1.63, platelet count is up to 83,000, patient remains on broad-spectrum antibiotics with vancomycin cephapirin, blood cultures positive for micrococcus species. Repeat blood cultures are negative 07/04/2020, patient seen eval examined during the rounds respiratory status remains marginal, patient had a rapid response due to hypotension and tachycardia earlier today now is in ICU, on 3 L oxygen, hemodynamic status very marginal systolic blood pressure 70/44, patient has a A. fib with RVR have been on amiodarone as well, for resuscitation patient has been started on levo fed, also albumin is being given, patient is also started on midodrine, labs reviewed white cell count is up to 7100 hemoglobin and hematocrit is 7.723, platelet count is 38,000, potassium is 4.6, BUN/creatinine is 39 and 1.32, when go mycin trough is 31.8, BNP is 39,200, patient with atrial fibrillation RVR cardiovascular service also following the patient 07/03/2020, patient seen eval examined during the rounds labs reviewed medications reviewed, patient is sitting upright on the chair her respiratory status slightly better, on 2 L oxygen, intermittent cough is present dry nonproductive, patient is status post transfusion 1 unit packed RBC oxygen saturation improved from 97%, chest x-ray continued showing a right-sided infiltrate versus edema patient remains on vancomycin along with the cefapime, but cultures preliminary positive for gram-positive cocci final ID is pending, globin improved to 8.2, at cell count is 4600, 07/02/2020, patient seen eval examined during the rounds labs reviewed medications reviewed care plan discussed, patient very somnolent but arousable, on 3 L oxygen, hemoglobin is down to 6.4 patient is to get unit of packed RBC, patient is scheduled for duplex ultrasound the lower extremity rule out DVT as they appear and looked more edematous, will order arterial blood gas as well as along with chest x-ray, WBC count is up to 1400, potassium is 3.8, BUN/creatinine 47 and 1.11, bilateral lower extremity negative for DVT, chest x- ray and ABG pending 07/01/2020, patient is being eval by cardiovascular services due to asymptomatic run of nonsustained ventricular tachycardia also intermittent SVT, patient remains afebrile hemodynamic status is marginal remains on broad-spectrum antibiotics, cell count is slightly up to 700, hemoglobin is 7.2, sodium 128, BUN/creatinine 47/1.23, This is a pleasant 79-year-old male who was diagnosed as GI lymphoma has been getting chemotherapy also has significant history of coronary artery disease dyslipidemia patient came into the hospital with the his daughter due to generalized weakness has been progressive for the last 3 days, patient has been getting chemotherapy, lately patient is having low blood pressure tiredness fatigue anxiety and apprehension, blood pressure in the ER noted to be 97/60, labs were significant for severe pancytopenia with neutropenia white cell count is only 200 hemoglobin 7.2 and platelet count of 26, patient noted to be on very high-dose prednisone of 120 mg his covert test is negative, patient chest x-ray is positive for bilateral small pleural effusion and right lower lobe pneumonia and stable right central venous catheter Objective - Vital Signs Vital signs: Vital Signs Temp 99 F 07/05/20 08:00 Pulse 140 H 07/05/20 09:00 Resp 30 H 07/05/20 09:00 BP 82/55 07/05/20 09:00 Pulse Ox 94 L 07/05/20 09:00 Intake & Output 07/04/20 07/05/20 07/05/20 18:59 06:59 18:59 Intake Total 8636.265 2455.079 578.279 Output Total 477 40 Balance 1699.340 5793.079 538.279 Weight 104.6 kg Intake: IV 602.35 490.04 146.68 0.9 220 240 80 Albumin Human 25% 50 ml 100 In Empty Bag 1 bag @ 50 mls/hr IVPB Q1H [facility] Rx#: [id number] Amiodarone 360 mg In 199 Dextrose 5% in Water 200 ml @ 1 MG/MIN 33.333 mls/ hr IV .Q6H ONE Rx#: [id number] Amiodarone 450 mg In 83.35 200.04 66.68 Dextrose 5% in Water 250 ml @ 0.5 MG/MIN 16.667 mls/hr IV .Q15H [facility] Rx#: [id number] Cefepime 1 gm In Sodium 50.0 Chloride 0.9% 50 ml @ 12. 5 mls/hr IVPB Q12HR [facility] Rx#:[id number] Intake, IV Titration 870.635 3709.039 431.599 Amount Amiodarone 450 mg In 250 Dextrose 5% in Water 250 ml @ 0.5 MG/MIN 16.667 mls/hr IV .Q15H [facility] Rx#: [id number] Norepinephrine 4 mg In 051.808 5533.039 181.599 Sodium Chloride 0.9% 250 ml @ 0.05 MCG/KG/MIN 19. 183 mls/hr IV .[id number] [facility] Rx#:[id number] Oral 100 200 Output: Urine 477 40 Other: Voiding Method Indwelling Catheter Indwelling Catheter Indwelling Catheter - Exam - Constitutional General appearance: average body habitus, cooperative, mild to moderate generalized distress - EENT Eyes: EOMI, PERRLA, normal appearance - Respiratory Respiratory: bilateral: CTA, negative: diminished, dullness, rales, rhonchi, wheezing - Cardiovascular Rhythm: regular Heart sounds: normal: S1, S2 leg Peripheral Edema: bilateral: 1+ - Gastrointestinal General gastrointestinal: decreased bowel sounds, no distended, no hepatomegaly, normal bowel sounds, no organomegaly, no rigid, soft, no tenderness - Integumentary Integumentary: pale, rash - Neurologic Neurologic: CNII-XII intact - Musculoskeletal Musculoskeletal: generalized weakness - Psychiatric Psychiatric: A&O x's one to 2, - Labs CBC & Chem 7: 07/05/20 04:09 07/05/20 04:09 Labs: Abnormal Lab Results - Last 24 Hours (Table) 07/04/20 07/04/20 07/04/20 Range/Units 14:09 16:23 18:10 WBC (3.8-10.6) k/uL RBC (4.30-5.90) m/uL Hgb (13.0-17.5) gm/dL Hct (39.0-53.0) % RDW (11.5-15.5) % Plt Count (150-450) k/uL Neutrophils # (Manual) (1.3-7.7) k/uL Lymphocytes # (Manual) (1.0-4.8) k/uL PT 14.8 H (9.0-12.0) sec INR 1.5 H (<1.2) APTT 31.8 H (22.0-30.0) sec D-Dimer 3.32 H (<0.60) mg/L FEU Sodium (137-145) mmol/L Potassium (3.5-5.1) mmol/L Carbon Dioxide (22-30) mmol/L BUN (9-20) mg/dL Creatinine (0.66-1.25) mg/dL Glucose (74-99) mg/dL POC Glucose (mg/dL) 192 H 215 H (75-99) mg/dL 07/04/20 07/05/20 07/05/20 Range/Units 21:14 04:09 04:09 WBC 15.7 H (3.8-10.6) k/uL RBC 3.25 L (4.30-5.90) m/uL Hgb 10.5 L (13.0-17.5) gm/dL Hct 30.6 L (39.0-53.0) % RDW 17.8 H (11.5-15.5) % Plt Count 83 L D (150-450) k/uL Neutrophils # (Manual) 13.90 H (1.3-7.7) k/uL Lymphocytes # (Manual) 0.79 L (1.0-4.8) k/uL PT (9.0-12.0) sec INR (<1.2) APTT (22.0-30.0) sec D-Dimer (<0.60) mg/L FEU Sodium 135 L (137-145) mmol/L Potassium 5.3 H (3.5-5.1) mmol/L Carbon Dioxide 16 L (22-30) mmol/L BUN 48 H (9-20) mg/dL Creatinine 1.63 H (0.66-1.25) mg/dL Glucose 167 H (74-99) mg/dL POC Glucose (mg/dL) 201 H (75-99) mg/dL 07/05/20 Range/Units 06:59 WBC (3.8-10.6) k/uL RBC (4.30-5.90) m/uL Hgb (13.0-17.5) gm/dL Hct (39.0-53.0) % RDW (11.5-15.5) % Plt Count (150-450) k/uL Neutrophils # (Manual) (1.3-7.7) k/uL Lymphocytes # (Manual) (1.0-4.8) k/uL PT (9.0-12.0) sec INR (<1.2) APTT (22.0-30.0) sec D-Dimer (<0.60) mg/L FEU Sodium (137-145) mmol/L Potassium (3.5-5.1) mmol/L Carbon Dioxide (22-30) mmol/L BUN (9-20) mg/dL Creatinine (0.66-1.25) mg/dL Glucose (74-99) mg/dL POC Glucose (mg/dL) 181 H (75-99) mg/dL Microbiology - Last 24 Hours (Table) 07/01/20 00:05 Blood Culture Gram Stain - Final Blood Blood Culture - Final Micrococcus species 06/30/20 23:54 Blood Culture - Preliminary Blood No Growth after 96 hours 06/30/20 17:29 Blood Culture - Preliminary Blood No Growth after 96 hours 06/30/20 17:29 Blood Culture - Preliminary Blood No Growth after 96 hours 07/03/20 10:59 Blood Culture - Preliminary Blood No Growth after 24 hours Assessment and Plan Assessment: Hypotension, poorly responsive to vasopressors A. 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
[2020-07-05] MEDS: PANTOPRAZOLE 40 MG TABLET PO SCH (10:51)
[2020-07-05] MEDS: LINAGLIPTIN 5 MG TABLET PO SCH (10:51)
[2020-07-05] MEDS: MAGNESIUM OXIDE 400 MG TAB PO SCH (10:51)
[2020-07-05] MEDS: MIDODRINE 5 MG TAB PO SCH (10:51)
[2020-07-05] MEDS: metFORMIN 500 MG TAB PO SCH (10:51)
[2020-07-05] MEDS: METOPROLOL TARTRATE 12.5 MG TAB PO SCH (10:52)
[2020-07-05] MEDS: TAMSULOSIN 0.4 MG CAP.ER.24H PO SCH (10:52)
[2020-07-05] MEDS ORDERED: NOREPINEPHRINE 8 MG in SODIUM CHLORIDE 0.9% 250 ML IV SCH (11:00)
--- NOTE | 2020-07-05 11:56 | P.PN ---
Subjective Progress Note Date: 07/05/20 HISTORY OF PRESENT ILLNESS This is a 79-year-old male with a past medical history of lymphoma, coronary artery disease, diabetes, dyslipidemia. Patient presented to the emergency room for generalized weakness. Per patient he has last chemotherapy 3 days ago for his lymphoma, he follows with Dr. Jerry. Patient reports loss of appetite, diarrhea but seems to be chronic, denies any nausea or vomiting, or abdominal pain. Upon arrival to the emergency department, blood pressure a little on the lower side on he is afebrile 98.4, heart rate of 99, he is 97% on room air. Laboratory values showed WBC of 0.2, hemoglobin of 7.2, platelet count of 26 sodium 1:30, BUN 42, creatinine 1.06. COVID testing was negative. Patient admitted to the hospital with oncology on consult. Patient noted to have +1 edema IV fluids turned down to 75 miles per hour. 07/01: Patient evaluated this morning, patient is resting comfortably in bed. Last night patient was noted to have a run of nonsustained ventricular tachycardia. He had a repeat EKG which showed normal sinus rhythm with left bundle branch block. Cardiology on consult, will obtain an echocardiogram. Stat magnesium resulted back at 1.8, replacement has been given. Actos has also been discontinued for his arrhythmia and also concern for congestive heart failure, Lantus 10 units ordered. Repeat chest x-ray showed congestive heart failure with small pleural effusions with right lower lobe pneumonia. Patient was ordered 1 unit of packed red blood cells, unable to complete due to the run of V. tach and concern for congestive heart failure. Patient continues on vancomycin and cefepime. Cultures are still pending. Patient noted to retain urine, straight cathed last night, will obtain postvoid residual and add Flomax. Blood pressure has been running on the lower side, midodrine 10 mg 3 times a day has been ordered. Laboratory values WBC 0.7, hemoglobin 7.2, platelet 29, sodium 128, BUN 47, creatinine 1.23, repeat magnesium 2.2 07/02: She continues to have significant weakness and was up to the chair yesterday. He did not have any lightheadedness or dizziness. He states he is eating a little bit but continues to have poor appetite. Ultrasound of bilateral lower extremities added. Patient is not sleeping very well and melatonin will be added. Oncology ordered 1 dose of IV Lasix this morning. He is maintained on cefepime and vancomycin per pulmonary medicine. Patient has been afebrile, heart rate 88, blood pressure 92/62, pulse ox 90% on room air. Repeat blood work reveals WBC 1.4, hemoglobin 6.4, platelet count 35. Sodium 130, potassium 3.8, chloride 100, CO2 25, BUN 47 and creatinine 1.11. Blood sugar running between 111 and 141. Calcium 7.7. Liver function tests were normal. Echocardiogram reveals EF of 20-25%, mild concentric left ventricular hypertrophy, mild aortic stenosis, [id number] mitral regurgitation, mild tricuspid regurgitation, mild pulmonary hypertension. Ultrasound of the bilateral lower extremities negative for DVT. Lopressor 12.5 mg daily has been added. Patient to be transfused of 1 unit of packed RBCs today. Patient is followed by multiple consultants including oncology, pulmonary medicine, cardiology. 07/03: Patient is seen today sitting up in a recliner. Patient was to person maximum assist with physical therapy. He has been afebrile, heart rate 97, blood pressure 85/49, pulse ox 95% on 2 L. Medications reviewed and no other me dications can be adjusted for hypotension. Repeat blood work reveals WBC 4.6, hemoglobin 8.2, platelet count 39. Blood culture is showing gram-positive cocci from July 01. Patient is on vancomycin and repeat blood cultures been ordered. Repeat chest x-ray from yesterday reveals CHF exacerbation and/or fluid overload as there is moderate central vascular congestion and interstitial edema. No sig nificant change from previous. One dose of IV Lasix 40 mg ordered repeat blood work ordered for tomorrow. 07/04: A-Team was called this morning for hypotension and tachycardia as well as worsening confusion. EKG was supraventricular tachycardia with heart rate in the 130s and 140s with hypotension. Patient was transferred into the intensive care unit and is status post bolus of amiodarone currently on amiodarone drip and norepinephrine. Blood pressure remains low and vasopressor being titrated. He has been afebrile. Telemetry is atrial fibrillation with RVR. Cardiology has ordered 1 dose of digoxin 250 g and he is continued on amiodarone drip. Repeat blood work reveals WBC 7.1, hemoglobin 7.7, platelet count 38. Sodium 135, potassium 4.6, chloride 105, CO2 20, BUN 39 creatinine 1.32. Blood sugars running between 135 and 178. ProBNP 39,200. Patient is not currently on anticoagulation due to thrombocytopenia. Prognosis is guarded. Noted the patient is a full code. Family has decided on hospice care and informational meeting has been arranged. 07/05: Patient's overall condition continues to worsen and family at this time is not ready to make him comfort care. They are coming in at noon today and will discuss again. Patient's renal function is worsened with BUN of 48 and creatinine 1.63. We'll hold consult with nephrology until family decided on comfort care or not. Patient is less responsive today. His urine output is decreased in origin dark in color. He has generalized anasarca with 2+ edema, dry oral mucous membranes. Marinol discontinued. Patient is choking on oral medications. Patient has been afebrile but tachycardic with A. fib RVR, respiratory rate in the 30s, blood pressure 93/57, pulse ox 94% repeat blood work reveals WBC 15.7, hemoglobin 10.5, platelet count 83. Sodium 135, potassium 5.3, chloride 106, CO2 16. Blood sugars running between 167 and 215. REVIEW OF SYSTEMS Unable to obtain due to mental status PHYSICAL EXAMINATION Gen: This is a 79-year-old male patient. He is resting in bed and appears to be comfortable at rest. HEENT: Head is atraumatic, normocephalic. Pupils equal, round. Sclerae is anicteric. Conjunctiva pale. Mucous membranes are dry. NECK: Supple. No JVD. No lymphadenopathy. No thyromegaly. LUNGS: Few crackles at the bases. No wheezes. No intercostal retractions. HEART: Irregular rate and rhythm. No murmur. Tachycardic. ABDOMEN: Soft. Bowel sounds are present. No masses. No tenderness. EXTREMITIES: Bilateral 2+ pedal edema and generalized anasarca. NEUROLOGICAL: Patient is lethargic. ASSESSMENT AND PLAN 1. Generalized weakness and dehydration secondary to chemotherapy and lymphoma. IV hydration discontinued due to fluid overload, Zofran as needed along with Marinol 5 mg twice a day, Ensure 2. Right lower lobe pneumonia with sepsis, present on admission. Continue cefepime 1 g IV piggyback every 12 hours and vancomycin, pharmacy dosing. 3. Hyponatremia. Continue to monitor. 4. Intermittent runs of ventricular tachycardia and PSVT. Cardiology consult appreciated. 5. 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 Oncology consult appreciated. 6. History of lymphoma. Oncology on consult. 7. Pancytopenia secondary from chemotherapy and lymphoma. Continue to monitor CBC. Patient be transfused 1 unit of packed RBCs today. 8. Chronic systolic heart failure. Consult with cardiology appreciated. Patient started on metoprolol tartrate 12.5 mg daily with parameters. 9. Diabetes mellitus type II with hyperglycemia. Will continue with Accu-Cheks with NovoLog sliding scale, continue Tradjenta 5 mg, metformin 1000 mg daily, Actos discontinued, and Lantus 10 units ordered 10. History of coronary artery disease. Continue Lipitor 20 mg daily, blood pressure medication on hold due to hypotension 11. Hypotension secondary to dehydration. Home blood pressure medication currently on hold, Midodrine 10 mg 3 times a day 12. Hyperlipidemia. On Lipitor 20 mg daily 13. Laura infection to bilateral groin. On nystatin cream twice a day 14. Urinary retention. Will obtain post void residual and add Flomax 0.4 mg daily 15. Hypomagnesemia. Replacement given, repeat magnesium level tomorrow 16. Blood culture with gram-positive cocci, possible contamination. Continue vancomycin, repeat blood culture. 17. A. fib with RVR, paroxysmal atrial fibrillation. Continue amiodarone drip, status post amiodarone bolus and digoxin IV push 1. No anticoagulation due to thrombocytopenia. 18. Septic shock requiring vasopressors. Patient has been transferred to the intensive care unit 19. Metabolic encephalopathy secondary to sepsis. 20. Micrococcus species on blood culture which is a contamination. 21. DVT prophylaxis. Pneumatic compression stockings 22. GI prophylaxis pantoprazole DISCHARGE PLAN Anticipate need for hospice. [facility] informational meeting Impression and plan of care have been directed as dictated by the signing physician. Kira Byrd nurse practitioner acting as scribe for signing physician. Objective - Vital Signs Vital signs: Vital Signs Temp 99 F 07/05/20 08:00 Pulse 137 H 07/05/20 10:40 Resp 32 H 07/05/20 10:40 BP 77/40 07/05/20 10:40 Pulse Ox 91 L 07/05/20 10:40 Intake & Output 07/04/20 07/05/20 07/05/20 18:59 06:59 18:59 Intake Total 9984.525 9216.079 578.279 Output Total 477 40 Balance 8907.198 9070.079 538.279 Weight 104.6 kg Intake: IV 602.35 490.04 146.68 0.9 220 240 80 Albumin Human 25% 50 ml 100 In Empty Bag 1 bag @ 50 mls/hr IVPB Q1H [facility] Rx#: [id number] Amiodarone 360 mg In 199 Dextrose 5% in Water 200 ml @ 1 MG/MIN 33.333 mls/ hr IV .Q6H [facility] Rx#: [id number] Amiodarone 450 mg In 83.35 200.04 66.68 Dextrose 5% in Water 250 ml @ 0.5 MG/MIN 16.667 mls/hr IV .Q15H [facility] Rx#: [id number] Cefepime 1 gm In Sodium 50.0 Chloride 0.9% 50 ml @ 12. 5 mls/hr IVPB Q12HR [facility] Rx#:[id number] Intake, IV Titration 421.792 7404.039 431.599 Amount Amiodarone 450 mg In 250 Dextrose 5% in Water 250 ml @ 0.5 MG/MIN 16.667 mls/hr IV .Q15H [facility] Rx#: [id number] Norepinephrine 4 mg In 297.047 7887.039 181.599 Sodium Chloride 0.9% 250 ml @ 0.05 MCG/KG/MIN 19. 183 mls/hr IV .[id number] [facility] Rx#:[id number] Oral 100 200 Output: Urine 477 40 Other: Voiding Method Indwelling Catheter Indwelling Catheter Indwelling Catheter - Labs CBC & Chem 7: 07/05/20 04:09 07/05/20 04:09 Labs: Abnormal Lab Results - Last 24 Hours (Table) 07/04/20 07/04/20 07/04/20 Range/Units 14:09 14:09 16:23 WBC (3.8-10.6) k/uL RBC (4.30-5.90) m/uL Hgb (13.0-17.5) gm/dL Hct (39.0-53.0) % RDW (11.5-15.5) % Plt Count (150-450) k/uL Neutrophils # (Manual) (1.3-7.7) k/uL Lymphocytes # (Manual) (1.0-4.8) k/uL PT 14.8 H (9.0-12.0) sec INR 1.5 H (<1.2) APTT 31.8 H (22.0-30.0) sec D-Dimer 3.32 H (<0.60) mg/L FEU Sodium (137-145) mmol/L Potassium (3.5-5.1) mmol/L Carbon Dioxide (22-30) mmol/L BUN (9-20) mg/dL Creatinine (0.66-1.25) mg/dL Glucose (74-99) mg/dL POC Glucose (mg/dL) 192 H (75-99) mg/dL IgG 381.0 L (700.0-1600.0) mg/dL 07/04/20 07/04/20 07/05/20 Range/Units 18:10 21:14 04:09 WBC (3.8-10.6) k/uL RBC (4.30-5.90) m/uL Hgb (13.0-17.5) gm/dL Hct (39.0-53.0) % RDW (11.5-15.5) % Plt Count (150-450) k/uL Neutrophils # (Manual) (1.3-7.7) k/uL Lymphocytes # (Manual) (1.0-4.8) k/uL PT (9.0-12.0) sec INR (<1.2) APTT (22.0-30.0) sec D-Dimer (<0.60) mg/L FEU Sodium 135 L (137-145) mmol/L Potassium 5.3 H (3.5-5.1) mmol/L Carbon Dioxide 16 L (22-30) mmol/L BUN 48 H (9-20) mg/dL Creatinine 1.63 H (0.66-1.25) mg/dL Glucose 167 H (74-99) mg/dL POC Glucose (mg/dL) 215 H 201 H (75-99) mg/dL IgG (700.0-1600.0) mg/dL 07/05/20 07/05/20 Range/Units 04:09 06:59 WBC 15.7 H (3.8-10.6) k/uL RBC 3.25 L (4.30-5.90) m/uL Hgb 10.5 L (13.0-17.5) gm/dL Hct 30.6 L (39.0-53.0) % RDW 17.8 H (11.5-15.5) % Plt Count 83 L D (150-450) k/uL Neutrophils # (Manual) 13.90 H (1.3-7.7) k/uL Lymphocytes # (Manual) 0.79 L (1.0-4.8) k/uL PT (9.0-12.0) sec INR (<1.2) APTT (22.0-30.0) sec D-Dimer (<0.60) mg/L FEU Sodium (137-145) mmol/L Potassium (3.5-5.1) mmol/L Carbon Dioxide (22-30) mmol/L BUN (9-20) mg/dL Creatinine (0.66-1.25) mg/dL Glucose (74-99) mg/dL POC Glucose (mg/dL) 181 H (75-99) mg/dL IgG (700.0-1600.0) mg/dL Microbiology - Last 24 Hours (Table) 07/01/20 00:05 Blood Culture Gram Stain - Final Blood Blood Culture - Final Micrococcus species 06/30/20 23:54 Blood Culture - Preliminary Blood No Growth after 96 hours 06/30/20 17:29 Blood Culture - Preliminary Blood No Growth after 96 hours 06/30/20 17:29 Blood Culture - Preliminary Blood No Growth after 96 hours 07/03/20 10:59 Blood Culture - Preliminary Blood No Growth after 24 hours
--- NOTE | 2020-07-05 12:24 | P.PN ---
Subjective Progress Note Date: 07/05/20 HISTORY OF PRESENT ILLNESS: This is a pleasant 79-year-old male. He has a history of hypertension, diabetes mellitus type 2, hyperlipidemia, questionable coronary artery disease per patient, mild lower extremity edema and lymphoma. He had prior history of lymphoma proximally years ago however has had recurrence and has been undergoing chemotherapy, last dose approximate 4 days ago. Patient has noticed increased lethargy especially last few days with fatigue. He was found to have pancytopenia with white blood cell count 0.7 today, hemoglobin 7.2, platelets 199. He was also noted to have a low sodium of 128, BUN 47, creatinine 1.2. He admits he has seen coach cleaner in the past however denies any history of coronary artery disease, stenting in the past. Patient is unsure if he is followed up in the office recently. Cardiology was consult that secondary to wide complex tachycardia. Patient had a 6 beat run of nonsustained ventricular tachycardia. He also had a 15 second wide-complex tachycardia however there is no change in axis and appeared to be his baseline left bundle-branch block with SVT at approximately 170 bpm on 07/01 at 1:00am. Patient denies any symptoms of feeling lightheaded or dizzy. He denies any recent syncopal or near syncopal episodes. He denies any chest pain or pressure. EKG was repeated which shows normal sinus rhythm, left bundle branch block. 07/02 Echocardiogram revealed left ventricular systolic function severely impaired with EF between 20-25%, global hypokinesis, mild aortic stenosis with a peak/mean gradient of 20 mmHg/10 mmHg, mild to moderate mitral regurgitation, mild tricuspid regurgitation, mild pulmonary hypertension, right ventricular systolic pressure 44 mmHg Dopplers of the bilateral lower extremities report reveals negative for DVT. 07/03/2020: Patient seen and examined at bedside, sitting up in the chair. Appears weak and frail. Patient's hemoglobin 6.4 yesterday and received 1 unit PRBCs. Blood pr essure 90/55, heart rate 93, afebrile, maintaining oxygen saturations 98% on room air. Laboratory data reviewed WBC 1.4, hemoglobin 6.4, platelets 35, sodium 1:30, potassium 3.8, serum creatinine 1.11, BUN 47, magnesium 2.1. Telemetry reviewed, patient is in sinus mechanism HR 80-90s, patient continues to have episodes of non-sustained ventricular tachycardia. Had an 2 episodes of SVT last night HR 100 at 8:45pm and 10:00pm. Laboratory reviewed, WBC 4.6, hemoglobin 8.2, platelets are 39, BMP not resulted today. 07/04/2020 A-team called this morning secondary to hypotension and tachycardia. Patient was transferred to the ICU. Patient currently on levophed. Telemetry reveals atrial fibrillation with uncontrolled rates. WBC 7.1. Hemoglobin 7.7. Platelet count 38. BUN 39. Creatinine 1.32 07/05/2020 Patient examined this morning in the ICU with Dr. Shaffer. Patient is lethargic. Blood pressures in the 80s. He remains on levophed for blood pressure support. Telemetry reveals atrial fibrillation with uncontrolled ventricular rates. He is on IV amio. Unable to take oral medications due to his lethargy. Patient has been made a DNR and hospice has been consulted. PHYSICAL EXAM: VITAL SIGNS: Reviewed. GENERAL: Well-developed in no acute distress, lethargic. NECK: Supple. No JVD or thyromegaly LUNGS: Respirations even and unlabored. Lungs diminished with bibasilar rales. HEART: Tachycardic. Irregular rate and rhythm. S1 and S2 heard. EXTREMITIES: Normal range of motion. No clubbing or cyanosis. Peripheral pulses intact. 1-2+ bilateral lower extremity edema ASSESSMENT: Systolic Heart failure with reduced ejection fraction 20-25% New onset atrial fibrillation with RVR Wide complex tachycardia, most likely ventricular Episodes of nonsustained ventricular tachycardia, patient is asymptomatic Episodes of SVT with baseline left bundle branch block, asymptomatic Right lower lobe pneumonia seen on chest x-ray- pulmonary following, patient being treated with vancomycin and cefepime Diabetes mellitus type 2 Hypertension Hyperlipidemia Reported history of coronary artery disease, no stenting per patient Pancytopenia related to chemotherapy Lymphoma PLAN: Wean levophed as tolerated Continue telemetry monitoring Continue Amio drip No anticoagulation for atrial fibrillation due to thrombocytopenia Possible hospice today. Patient has been made DNR. Await family decision. Further recommendations pending patient course Nurse practitioner note has been reviewed by physician. Signing provider agrees with the documented findings, assessment, and plan of care. Objective - Vital Signs Vital signs: Vital Signs Temp 99 F 07/05/20 08:00 Pulse 137 H 07/05/20 10:40 Resp 32 H 07/05/20 10:40 BP 77/40 07/05/20 10:40 Pulse Ox 91 L 07/05/20 10:40 Intake & Output 07/04/20 07/05/20 07/05/20 18:59 06:59 18:59 Intake Total 7051.683 1036.079 578.279 Output Total 477 40 Balance 2848.584 9758.079 538.279 Weight 104.6 kg Intake: IV 602.35 490.04 146.68 0.9 220 240 80 Albumin Human 25% 50 ml 100 In Empty Bag 1 bag @ 50 mls/hr IVPB Q1H [facility] Rx#: [id number] Amiodarone 360 mg In 199 Dextrose 5% in Water 200 ml @ 1 MG/MIN 33.333 mls/ hr IV .Q6H [facility] Rx#: [id number] Amiodarone 450 mg In 83.35 200.04 66.68 Dextrose 5% in Water 250 ml @ 0.5 MG/MIN 16.667 mls/hr IV .Q15H [facility] Rx#: [id number] Cefepime 1 gm In Sodium 50.0 Chloride 0.9% 50 ml @ 12. 5 mls/hr IVPB Q12HR [facility] Rx#:[id number] Intake, IV Titration 356.465 7006.039 431.599 Amount Amiodarone 450 mg In 250 Dextrose 5% in Water 250 ml @ 0.5 MG/MIN 16.667 mls/hr IV .Q15H [facility] Rx#: [id number] Norepinephrine 4 mg In 439.547 2553.039 181.599 Sodium Chloride 0.9% 250 ml @ 0.05 MCG/KG/MIN 19. 183 mls/hr IV .[id number] [facility] Rx#:[id number] Oral 100 200 Output: Urine 477 40 Other: Voiding Method Indwelling Catheter Indwelling Catheter Indwelling Catheter - Labs CBC & Chem 7: 07/05/20 04:09 07/05/20 04:09 Labs: Abnormal Lab Results - Last 24 Hours (Table) 07/04/20 07/04/20 07/04/20 Range/Units 14:09 14:09 16:23 WBC (3.8-10.6) k/uL RBC (4.30-5.90) m/uL Hgb (13.0-17.5) gm/dL Hct (39.0-53.0) % RDW (11.5-15.5) % Plt Count (150-450) k/uL Neutrophils # (Manual) (1.3-7.7) k/uL Lymphocytes # (Manual) (1.0-4.8) k/uL PT 14.8 H (9.0-12.0) sec INR 1.5 H (<1.2) APTT 31.8 H (22.0-30.0) sec D-Dimer 3.32 H (<0.60) mg/L FEU Sodium (137-145) mmol/L Potassium (3.5-5.1) mmol/L Carbon Dioxide (22-30) mmol/L BUN (9-20) mg/dL Creatinine (0.66-1.25) mg/dL Glucose (74-99) mg/dL POC Glucose (mg/dL) 192 H (75-99) mg/dL IgG 381.0 L (700.0-1600.0) mg/dL 07/04/20 07/04/20 07/05/20 Range/Units 18:10 21:14 04:09 WBC (3.8-10.6) k/uL RBC (4.30-5.90) m/uL Hgb (13.0-17.5) gm/dL Hct (39.0-53.0) % RDW (11.5-15.5) % Plt Count (150-450) k/uL Neutrophils # (Manual) (1.3-7.7) k/uL Lymphocytes # (Manual) (1.0-4.8) k/uL PT (9.0-12.0) sec INR (<1.2) APTT (22.0-30.0) sec D-Dimer (<0.60) mg/L FEU Sodium 135 L (137-145) mmol/L Potassium 5.3 H (3.5-5.1) mmol/L Carbon Dioxide 16 L (22-30) mmol/L BUN 48 H (9-20) mg/dL Creatinine 1.63 H (0.66-1.25) mg/dL Glucose 167 H (74-99) mg/dL POC Glucose (mg/dL) 215 H 201 H (75-99) mg/dL IgG (700.0-1600.0) mg/dL 07/05/20 07/05/20 Range/Units 04:09 06:59 WBC 15.7 H (3.8-10.6) k/uL RBC 3.25 L (4.30-5.90) m/uL Hgb 10.5 L (13.0-17.5) gm/dL Hct 30.6 L (39.0-53.0) % RDW 17.8 H (11.5-15.5) % Plt Count 83 L D (150-450) k/uL Neutrophils # (Manual) 13.90 H (1.3-7.7) k/uL Lymphocytes # (Manual) 0.79 L (1.0-4.8) k/uL PT (9.0-12.0) sec INR (<1.2) APTT (22.0-30.0) sec D-Dimer (<0.60) mg/L FEU Sodium (137-145) mmol/L Potassium (3.5-5.1) mmol/L Carbon Dioxide (22-30) mmol/L BUN (9-20) mg/dL Creatinine (0.66-1.25) mg/dL Glucose (74-99) mg/dL POC Glucose (mg/dL) 181 H (75-99) mg/dL IgG (700.0-1600.0) mg/dL Microbiology - Last 24 Hours (Table) 07/01/20 00:05 Blood Culture Gram Stain - Final Blood Blood Culture - Final Micrococcus species 06/30/20 23:54 Blood Culture - Preliminary Blood No Growth after 96 hours 06/30/20 17:29 Blood Culture - Preliminary Blood No Growth after 96 hours 06/30/20 17:29 Blood Culture - Preliminary Blood No Growth after 96 hours 07/03/20 10:59 Blood Culture - Preliminary Blood No Growth after 24 hours
[2020-07-05] MEDS ORDERED: AMIODARONE 450 MG in DEXTROSE 5% IN WATER 250 ML IV SCH ×2 (12:30)
[2020-07-05] MEDS ORDERED: MORPHINE SULFATE 2 MG/ML SYRINGE IVP PRN (13:02)
[2020-07-05] MEDS ORDERED: ATROPINE OPHTH SOLN 1% 5ML BTL SUBLINGUAL PRN (13:21)
[2020-07-05] MEDS ORDERED: MORPHINE SULFATE 2 MG/ML SYRINGE IV PRN (13:21)
[2020-07-05] MEDS ORDERED: MORPHINE SULFATE 4 MG/ML SYRINGE IV PRN (13:21)
[2020-07-05] MEDS ORDERED: LORazepam 2 MG/ML INJ IV PRN (13:21)
[2020-07-05] MEDS ORDERED: SCOPOLAMINE 1.5MG/72HR PATCH TRANSDERM SCH (13:30)
[2020-07-05 13:44] VITALS: BMI 33.0
[2020-07-05] MEDS: MORPHINE SULFATE (100 MG/2 ML) 100 MG in SODIUM CHLORIDE 0.9% 100 ML IV SCH ×2 (14:24→17:25)
[2020-07-05] MEDS ORDERED: NOREPINEPHRIN 4 MG-0.9% NS PMX 4 MG/250 ML ML IV ONE (15:25)
[2020-07-05] MEDS ORDERED: VANCOMYCIN 1,750 MG in SODIUM CHLORIDE 0.9% 500 ML 500 ML IVPB SCH (17:00)
--- NOTE | 2020-07-05 18:30 | P.PN ---
Progress Note - Text Progress Note Date: 07/05/20 IGG less than 400, however his renal function is worsening. Await Creatinine and if stable can order Immunoglbulin to assist in immune support.
[2020-07-05] MEDS ORDERED: MELATONIN 5 MG TABLET PO SCH (21:00)
[2020-07-05 22:01] VITALS: BP 49/36; PULSE 101; RESP 22; TEMP 98.9
--- NOTE | 2020-07-06 09:01 | P.DS ---
Providers Date of admission: 06/30/20 11:01 Expected date of discharge: 07/05/20 Attending physician: Sangeetha Katz Consults: 06/29/20 19:05 Consult Physician Routine Consulting Provider: Scott Jerry Consult Reason/Comments: lymphoma Do you want consulting provider notified?: Yes 07/01/20 04:13 Consult Physician Urgent Consulting Provider: Lloyd Aquino Consult Reason/Comments: Run of 27. Do you want consulting provider notified?: Yes 07/04/20 07:44 Consult Physician Routine Consulting Provider: Leonel Silva Consult Reason/Comments: ICU management Do you want consulting provider notified?: Yes Primary care physician: Dennis Cooper [facility] Course: HISTORY OF PRESENT ILLNESS This is a 79-year-old male with a past medical history of lymphoma, coronary artery disease, diabetes, dyslipidemia. Patient presented to the emergency room for generalized weakness. Per patient he has last chemotherapy 3 days ago for his lymphoma, he follows with Dr. Jerry. Patient reports loss of appetite, diarrhea but seems to be chronic, denies any nausea or vomiting, or abdominal pain. Upon arrival to the emergency department, blood pressure a little on the lower side on he is afebrile 98.4, heart rate of 99, he is 97% on room air. Laboratory values showed WBC of 0.2, hemoglobin of 7.2, platelet count of 26 sodium 1:30, BUN 42, creatinine 1.06. COVID testing was negative. Patient admitted to the hospital with oncology on consult. Patient noted to have +1 edema IV fluids turned down to 75 miles per hour. 07/01: Patient evaluated this morning, patient is resting comfortably in bed. Last night patient was noted to have a run of nonsustained ventricular tachycardia. He had a repeat EKG which showed normal sinus rhythm with left bu ndle branch block. Cardiology on consult, will obtain an echocardiogram. Stat magnesium resulted back at 1.8, replacement has been given. Actos has also been discontinued for his arrhythmia and also concern for congestive heart failure, Lantus 10 units ordered. Repeat chest x-ray showed congestive heart failure with small pleural effusions with right lower lobe pneumonia. Patient was ordered 1 unit of packed red blood cells, unable to complete due to the run of V. tach and concern for congestive heart failure. Patient continues on vancomycin and cefepime. Cultures are still pending. Patient noted to retain urine, straight cathed last night, will obtain postvoid residual and add Flomax. Blood pressure has been running on the lower side, midodrine 10 mg 3 times a day has been ordered. Laboratory values WBC 0.7, hemoglobin 7.2, platelet 29, sodium 128, BUN 47, creatinine 1.23, repeat magnesium 2.2 07/02: She continues to have significant weakness and was up to the chair yesterday. He did not have any lightheadedness or dizziness. He states he is eating a little bit but continues to have poor appetite. Ultrasound of bilateral lower extremities added. Patient is not sleeping very well and melatonin will be added. Oncology ordered 1 dose of IV Lasix this morning. He is maintained on cefepime and vancomycin per pulmonary medicine. Patient has been afebrile, heart rate 88, blood pressure 92/62, pulse ox 90% on room air. Repeat blood work reveals WBC 1.4, hemoglobin 6.4, platelet count 35. Sodium 130, potassium 3.8, chloride 100, CO2 25, BUN 47 and creatinine 1.11. Blood sugar running between 111 and 141. Calcium 7.7. Liver function tests were normal. Echocardiogram reveals EF of 20-25%, mild concentric left ventricular hypertrophy, mild aortic stenosis, [id number] mitral regurgitation, mild tricuspid regurgitation, mild pulmonary hypertension. Ultrasound of the bilateral lower extremities negative for DVT. Lopressor 12.5 mg daily has been added. Patient to be transfused of 1 unit of packed RBCs today. Patient is followed by multiple consultants including oncology, pulmonary medicine, cardiology. 07/03: Patient is seen today sitting up in a recliner. Patient was to person maximum assist with physical therapy. He has been afebrile, heart rate 97, blood pressure 85/49, pulse ox 95% on 2 L. Medications reviewed and no other medications can be adjusted for hypotension. Repeat blood work reveals WBC 4.6, hemoglobin 8.2, platelet count 39. Blood culture is showing gram-positive cocci from July 01. Patient is on vancomycin and repeat blood cultures been ordered. Repeat chest x-ray from yesterday reveals CHF exacerbation and/or fluid overload as there is moderate central vascular congestion and interstitial edema. No significant change from previous. One dose of IV Lasix 40 mg ordered repeat blood work ordered for tomorrow. 07/04: A-Team was called this morning for hypotension and tachycardia as well as worsening confusion. EKG was supraventricular tachycardia with heart rate in the 130s and 140s with hypotension. Patient was transferred into the intensive care unit and is status post bolus of amiodarone currently on amiodarone drip and norepinephrine. Blood pressure remains low and vasopressor being titrated. He has been afebrile. Telemetry is atrial fibrillation with RVR. Cardiology has ordered 1 dose of digoxin 250 g and he is continued on amiodarone drip. Repeat blood work reveals WBC 7.1, hemoglobin 7.7, platelet count 38. Sodium 135, potassium 4.6, chloride 105, CO2 20, BUN 39 creatinine 1.32. Blood sugars running between 135 and 178. ProBNP 39,200. Patient is not currently on anticoagulation due to thrombocytopenia. Prognosis is guarded. Noted the patient is a full code. Family has decided on hospice care and informational meeting has been arranged. 07/05: Patient's overall condition continues to worsen and family at this time is not ready to make him comfort care. They are coming in at noon today and will discuss again. Patient's renal function is worsened with BUN of 48 and creatinine 1.63. We'll hold consult with nephrology until family decided on comfort care or not. Patient is less responsive today. His urine output is decreased in origin dark in color. He has generalized anasarca with 2+ edema, dry oral mucous membranes. Marinol discontinued. Patient is choking on oral medications. Patient has been afebrile but tachycardic with A. fib RVR, respiratory rate in the 30s, blood pressure 93/57, pulse ox 94% repeat blood work reveals WBC 15.7, hemoglobin 10.5, platelet count 83. Sodium 135, potassium 5.3, chloride 106, CO2 16. Blood sugars running between 167 and 215. Family decided to make patient comfort care only and patient on July 05. Please see nursing documentation for details. ASSESSMENT AND PLAN 1. Generalized weakness and dehydration secondary to chemotherapy and lymphoma. 2. Right lower lobe possible aspiration or gram-negative pneumonia with sepsis, present on admission. 3. Hyponatremia. 4. Intermittent runs of ventricular tachycardia and PSVT. 5. 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 6. History of lymphoma. 7. Pancytopenia secondary from chemotherapy and lymphoma. 8. Acute on chronic systolic heart failure. 9. Diabetes mellitus type II with hyperglycemia. 10. History of coronary artery disease. 11. Hypotension secondary to dehydration. 12. Hyperlipidemia. 13. Laura infection to bilateral groin. 14. Urinary retention. 15. Hypomagnesemia. 16. Micrococcus species on blood culture which is a contamination. 17. A. fib with RVR, paroxysmal atrial fibrillation. 18. Septic shock requiring vasopressors. 19. Metabolic encephalopathy secondary to sepsis. 20. Acute kidney injury. 21. Acute hypoxic respiratory failure requiring oxygen therapy. Impression and plan of care have been directed as dictated by the signing physician. Kira Byrd nurse practitioner acting as scribe for signing physician. Patient Condition at Discharge: Undetermined Plan - Discharge Summary Discharge Rx Participant: No New Discharge Prescriptions: No Action Aspirin EC [Ecotrin Low Dose] 81 mg PO DAILY Simvastatin [Zocor] 40 mg PO HS Pioglitazone [Actos] 30 mg PO DAILY Furosemide [Lasix] 40 mg PO DAILY@1200 Prochlorperazine [Compazine] 10 mg PO Q6H PRN PRN Reason: CHEMO NAUSEA metFORMIN HCL 1,000 mg PO DAILY Pantoprazole Sodium 40 mg PO DAILY PRN PRN Reason: Gi Upset predniSONE [Deltasone] 120 mg PO DIRECTED Lidocaine-Prilocaine Cream [Emla Cream 2.5%/2.5%] 1 applic TOPICAL DAILY PRN PRN Reason: PORT ACCESS glipiZIDE XL [Glucotrol Xl] 10 mg PO DAILY [place] 50mg 100 mg PO DIRECTED sitaGLIPtin [Januvia] 50 mg PO DAILY dronabinoL [Dronabinol] 5 mg PO BID Discharge Medication List Aspirin EC [Ecotrin Low Dose] 81 mg PO DAILY 04/20/16 [History] Furosemide [Lasix] 40 mg PO DAILY@1200 04/20/16 [History] Pioglitazone [Actos] 30 mg PO DAILY 04/20/16 [History] Simvastatin [Zocor] 40 mg PO HS 04/20/16 [History] Lidocaine-Prilocaine Cream [Emla Cream 2.5%/2.5%] 1 applic TOPICAL DAILY PRN 06/29/20 [History] [place] 50mg 100 mg PO DIRECTED 06/29/20 [History] Pantoprazole Sodium 40 mg PO DAILY PRN 06/29/20 [History] Prochlorperazine [Compazine] 10 mg PO Q6H PRN 06/29/20 [History] dronabinoL [Dronabinol] 5 mg PO BID 06/29/20 [History] glipiZIDE XL [Glucotrol Xl] 10 mg PO DAILY 06/29/20 [History] metFORMIN HCL 1,000 mg PO DAILY 06/29/20 [History] predniSONE [Deltasone] 120 mg PO DIRECTED 06/29/20 [History] sitaGLIPtin [Januvia] 50 mg PO DAILY 06/29/20 [History] Follow up Appointment(s)/Referral(s): Lloyd Aquino DO [STAFF PHYSICIAN] - 2 Weeks Discharge Disposition: - Preliminary Cause of Preliminary Cause of : Diffuse large B cell GI lymphoma
== END 2020-07-05 20:37 | disposition expired | DRG 871 ==
LOC: EC 16:06 → 5NMEDONC 19:04 → OBSVTOIN 06-30 11:01 → 2SICU 07-04 07:46
PROVIDERS: ADMIT Family Medicine; ATTEND Family Medicine
PROC: 3E033XZ Introduction of Vasopressor into Peripheral Vein, Percutaneous Approach (ICD-10-PCS; principal; 2020-06-30)
PROC: 30233N1 Transfusion of Nonautologous Red Blood Cells into Peripheral Vein, Percutaneous Approach (ICD-10-PCS; 2020-07-02)
DX: A41.50 Gram-negative sepsis, unspecified (principal); J15.6 Pneumonia due to other Gram-negative bacteria; J69.0 Pneumonitis due to inhalation of food and vomit; R65.21 Severe sepsis with septic shock; G93.41 Metabolic encephalopathy; D61.810 Antineoplastic chemotherapy induced pancytopenia; I50.23 Acute on chronic systolic (congestive) heart failure; J96.01 Acute respiratory failure with hypoxia; N17.9 Acute kidney failure, unspecified; C83.33 Diffuse large B-cell lymphoma, intra-abdominal lymph nodes; E87.1 Hypo-osmolality and hyponatremia; E87.2 Acidosis; I47.1 Supraventricular tachycardia; I47.2 Ventricular tachycardia; Z87.891 Personal history of nicotine dependence; E11.65 Type 2 diabetes mellitus with hyperglycemia; T38.0X5A Adverse effect of glucocorticoids and synthetic analogues, initial encounter; T45.1X5A Adverse effect of antineoplastic and immunosuppressive drugs, initial encounter; I27.20 Pulmonary hypertension, unspecified; Z51.5 Encounter for palliative care; I48.0 Paroxysmal atrial fibrillation; I11.0 Hypertensive heart disease with heart failure; Z66 Do not resuscitate; Z20.822 Contact with and (suspected) exposure to COVID-19; E78.5 Hyperlipidemia, unspecified; B37.2 Candidiasis of skin and nail; E83.42 Hypomagnesemia; E86.0 Dehydration; H57.9 Unspecified disorder of eye and adnexa; G47.9 Sleep disorder, unspecified; I08.3 Combined rheumatic disorders of mitral, aortic and tricuspid valves; I25.10 Atherosclerotic heart disease of native coronary artery without angina pectoris; R33.9 Retention of urine, unspecified; I44.7 Left bundle-branch block, unspecified; Z53.09 Procedure and treatment not carried out because of other contraindication; Z98.890 Other specified postprocedural states; Z79.82 Long term (current) use of aspirin; Z79.84 Long term (current) use of oral hypoglycemic drugs; Z79.52 Long term (current) use of systemic steroids; Z79.899 Other long term (current) drug therapy; Z80.9 Family history of malignant neoplasm, unspecified; Z83.3 Family history of diabetes mellitus; Z85.818 Personal history of malignant neoplasm of other sites of lip, oral cavity, and pharynx; Z90.89 Acquired absence of other organs; Z85.828 Personal history of other malignant neoplasm of skin
CPT/HCPCS: 36415; 36600; 71045; 80048; 80053; 80202; 81001; 82784; 82803; 82805; 83605; 83735; 83880; 84443; 85025; 85379; 85610; 85730; 86850; 86900; 86901; 86920; 87040; 87635; 93005; 93306; 93970; 94760; 96360; 99285